=== PATIENT | female | born 1955 | race Two or more races ===

== ENCOUNTER 2024-01-29 21:53 | Inpatient (IN) | payer OTHER, MEDICAID ==
[~2024-01-29] VITALS: Ht 162.6 cm; Wt 69.8 kg
[~2024-01-29 21:53] MED LIST: ALEN70TA74 PO; AMLO1TAB22 PO; AMOX500C2 PO; ASPI81CH59 PO; ATOR40TA52 PO; BACL10TA PO; CHOL20003 PO; FAMO40TA7 PO; IBUP-1455 PO; LISI10TA34 PO; MET25T PO; METH4TAB44 PO; TRIA-49 PO
--- NOTE | 2024-01-29 22:17 | ED.PDOC ---
GI ASSESSMENT HPI Comments 68-year-old female who coming to ER via EMS due to abdominal pain. Patient does have history of breast cancer. States for the past few hours she has been having left lower quadrant abdominal pain, nonradiating, constant. The, vomiting or diarrhea. Denies any abdominal surgeries. Chief Complaint: Abdominal Pain Time Seen by MD: 22:17 Reviewed Notes: Nurses Notes Allergies: Coded Allergies: No Known Drug Allergy (Verified Allergy, Unknown, 01/29/24) Information Source: Patient Mode of Arrival: EMS Timing: Hours Duration: Since onset Prehospital treatment: None Quality: Aching, Sharp Vomitus: None Stool: Normal Severity: Moderate Recent: None Recent Hx of: None Pain Location: LLQ Modifying Factors: Nothing Associated sign and symptoms: Abdominal Pain Past Medical History PAST MEDICAL HISTORY: Cancer (Breast) Surgical History: Denies all surgeries BLASTING MINER History: Denies all BLASTING MINER Hx Family History Family History: Reviewed,noncontributory to illness Social History Smoker: Non-Smoker Alcohol: Denies ETOH Use Drugs: Denies Drug Use Lives In: Home Constitutional: denies: chills, diaphoresis, fatigue, fever, malaise, sweats, weakness, others EENTM: denies: blurred vision, double vision, ear bleeding, ear discharge, ear drainage, ear pain, ear ringing, eye pain, eye redness, hearing loss, mouth pain, mouth swelling, nasal discharge, nose bleeding, nose congestion, nose pain, photophobia, tearing, throat pain, throat swelling, voice changes, others Respiratory: denies: cough, hemoptysis, orthopnea, SOB at rest, shortness of breath, SOB with excertion, stridor, wheezing, others Cardiovascular: denies: chest pain, dizzy spells, diaphoresis, Dyspnea on exertion, edema, irregular heart beat, left arm pain, lightheadedness, palpitations, PND, syncope, others Gastrointestinal: reports: abdominal pain; denies: abdomen distended, blood streaked bowels, constipated, diarrhea, dysphagia, difficulty swallowing, hematemesis, melena, nausea, poor appetite, poor fluid intake, rectal bleeding, rectal pain, vomiting, others Genitourinary: denies: abnormal vagina bleeding, burning, dyspareunia, dysuria, flank pain, frequency, hematuria, incontinence, pain, , vagina discharge, urgency, others Neurological: denies: dizziness, fainting, headache, left sided numbness, left sided weakness, numbness, paresthesia, pre-existing deficit, right sided numbness, right sided weakness, seizure, speech problems, tingling, tremors, weakness, others Musculoskeletal: denies: back pain, gout, joint pain, joint swelling, muscle pain, muscle stiffness, neck pain, others Integumetry: denies: bruises, change in color, change in hair/nails, dryness, laceration, lesions, lumps, rash, wounds, others Allergic/Immunocompromised: denies: Difficulty Healing, Frequent Infections, Hives, Itching, others Hematologic/Lymphatic: denies: anemia, blood clots, easy bleeding, easy bruising, swollen glands, others Endocrine: denies: excessive hunger, excessive sweating, excessive thirst, excessive urination, flushing, intolerance to cold, intolerance to heat, unexplained weight gain, unexplained weight loss, others Psychiatric: denies: anxiety, bipolar disorder, depression, hopeless, panic disorder, schizophrenia, sleepless, suicidal, others Physical Exam General Appearance: No Apparent Distress, Normal HEENT: Normal ENT Inspection, Pharynx Normal, TMs Normal Neck: Full Range of Motion, Non-Tender, Normal, Normal Inspection Respiratory: Chest Non-Tender, Lungs Clear, No Accessory Muscle Use, No Respiratory Distress, Normal Breath Sounds Cardiovascular: No Edema, No JVD, No Murmur, No Gallop, Normal Peripheral Pulses, Regular Rate/Rhythm Breast Exam: Deferred Gastrointestinal: LLQ, No Organomegaly, No Pulsatile Mass, Normal Bowel Sounds, Soft, Tenderness Genitalia: Deferred Pelvic: Deferred Rectal: Deferred Extremities: No calf tenderness, Normal capillary refill, Normal inspection, Normal range of motion, Non-tender, No pedal edema Musculoskeletal : Apperance: Normal Neurologic: Alert, him specialist II-XII nml as Tested, No Motor Deficits, Normal Affect, Normal Mood, No Sensory Deficits Cerebellar Function: Normal Reflexes: Normal Skin: Dry, Normal Color, Warm Lymphatic: No Adenopathy Was a procedure done? Was a procedure done?: No GI differential Dx Differential Diagnosis: Constipation, Diverticular disease, Gastritis/PUD, Gastroenteritis, Ovarian cyst/torsion, UTI X-Ray, Labs, Meds, VS Vital Signs Date Time Temp Pulse Resp B/P (MAP) Pulse Ox O2 Delivery O2 Flow Rate FiO2 01/30/24 00:00 88 01/30/24 00:00 86 13 158/66 (96) 94 01/29/24 23:18 92 19 93/69 01/29/24 23:10 92 19 94 Room Air* 0 21 01/29/24 23:10 98.2 92 19 93/69 (77) 94 98.2 01/29/24 22:49 102 16 180/98 01/29/24 22:31 98.6 102 16 180/98 (125) 97 98.6 01/29/24 22:01 98.2 88 20 159/74 (102) 99 01/29/24 21:53 90 Lab Test 01/29/24 23:10 01/29/24 22:30 Range/Units Urine Color Straw Yellow Urine Clarity Clear Clear Urine pH 7.0 5.0-9.0 Urine Specific [place] 1.012 1.001-1.035 Urine Protein Negative Negative Urine Ketones Negative Negative Urine Blood Negative Negative /uL Urine Nitrite Negative Negative Urine Bilirubin Negative Negative Urine Urobilinogen Normal Negative mg/dL Urine Leukocyte Esterase Negative Negative /uL Urine RBC 2 0 - 4 /hpf Urine WBC <1 0 - 5 /hpf Urine Squamous Epithelial Cells None seen <5 /hpf Urine Bacteria None seen None Seen /hpf Urine Glucose Normal Normal mg/dL White Blood Count 12.0 H 4.4-10.8 10^3/uL Red Blood Count 4.74 4.0-5.20 10^6/uL Hemoglobin 14.0 12.2-16.2 g/dL Hematocrit 41.5 36.0-46.0 % Mean Corpuscular Volume 87.7 80.0-100.0 fL Mean Corpuscular Hemoglobin 29.5 28.0-32.0 pg Mean Corpuscular Hemoglobin Concent 33.6 32.0-36.0 g/dL Red Cell Distribution Width 14.1 11.8-14.3 % Platelet Count 302 140-450 10^3/uL Mean Platelet Volume 8.0 6.9-10.8 fL Neutrophils (%) (Auto) 83.3 H 37.0-80.0 % Lymphocytes (%) (Auto) 11.7 10.0-50.0 % Monocytes (%) (Auto) 3.3 0.0-12.0 % Eosinophils (%) (Auto) 1.3 0.0-7.0 % Basophils (%) (Auto) 0.4 0.0-2.0 % Neutrophils # (Auto) 9.9 H 1.6-8.6 10 ^3/uL Lymphocytes # (Auto) 1.4 0.4-5.4 10 ^3/uL Monocytes # (Auto) 0.4 0-1.3 10 ^3/uL Eosinophils # (Auto) 0.2 0-0.8 10 ^3/uL Basophils # (Auto) 0.1 0-0.2 10 ^3/uL Nucleated Red Blood Cells 0.0 % Sodium Level 137 136-145 mmol/L Potassium Level 3.8 3.5-5.1 mmol/L Chloride Level 101 98-107 mmol/L Carbon Dioxide Level 27 20-31 mmol/L Anion Gap 9 5-15 Blood Urea Nitrogen 15 9-23 mg/dL Creatinine 1.11 H 0.550-1.02 mg/dL Glomerular Filtration Rate Calc 54 >90 mL/min BUN/Creatinine Ratio 13.5 10.0-20.0 Serum Glucose 100 74-106 mg/dL Calcium Level 9.9 8.7-10.4 mg/dL Current Medications Medications (Trade) Dose Ordered Sig/Sepideh Route Start Time Stop Time Status Last Admin Sodium Chloride 1,000 ml @ 1,000 mls/hr Q1H ONCE IV 01/29/24 22:15 01/29/24 23:14 DC 01/29/24 22:41 Ondansetron HCl (Zofran) 4 mg ONCE ONCE IV 01/29/24 22:15 01/29/24 22:16 DC 01/29/24 22:47 Morphine Sulfate 4 mg ONCE ONCE IV 01/29/24 22:15 01/29/24 22:16 DC 01/29/24 22:49 Metronidazole 100 ml @ 100 mls/hr ONCE ONCE IV 01/30/24 00:15 01/30/24 01:14 01/30/24 00:27 Time of 1ST Reevaluation: 22:13 Reevaluation 1ST: Unchanged Patient Education/Counseling: Diagnosis, Treatment Family Education/Counseling: No Family Present Departure 1 Departure Time of Disposition: 00:49 (Patient with pneumoperitoneum. Discussed the case with general surgeon Dr. Negrete. Recommends NG tube fluids antibiotics admission and he will manage patient.) Impression: Primary Impression: Pneumoperitoneum Additional Impressions: Abdominal pain Qualified Codes: R10.84 - Generalized abdominal pain Diverticulitis of intestine with perforation Qualified Codes: K57.20 - Diverticulitis of large intestine with perforation and abscess without bleeding Disposition: ADMITTED INPATIENT Admit to: Med Surg Condition: Guarded Critical Care Note Critical Care Time?: Yes Critical care comment: Intractable abdominal pain Authorized and Performed by: Tri Hope MD Total critical care time: Approximately 48 minutes Due to a high probability of clinically significant, life threatening deterioration, the patient required my highest level of preparedness to intervene emergently and I personally spent this critical care time directly and personally managing the patient. This critical care time included obtaining a history; examining the patient; pulse oximetry; ordering and review of studies; arranging urgent treatment with development of a management plan; evaluation of patient's response to treatment; frequent reassessment; and, discussions with other providers. This critical care time was performed to assess and manage the high probability of imminent, life-threatening deterioration that could result in multi-organ failure. It was exclusive of separately billable procedures and treating other patients and teaching time. Please see my other sections and the rest of the note for further information on patient assessment and treatment. Stability Stability form required: No Heart Score Heart Score: Heart Score Response (Comments) Value History N/A 0 EKG N/A 0 Age N/A 0 Risk Factors N/A 0 Troponin N/A 0 Total 0 I personally scribed for TRI HOPE MD ([email or web address]) on 01/29/24 at 22:17. Electronically submitted by Luis Armenta ([email or web address]). TRI HOPE MD Jan 29, 2024 22:17
[2024-01-29] MEDS: SODIUM CHLORIDE 0.9% 1,000 ML IV ONE (22:41)
[2024-01-29 22:43] LABS: Basophils # (auto) 0.1 10 ^3/uL (0-0.2); Basophils % (auto) 0.4 % (0.0-2.0); Eosinophils # (auto) 0.2 10 ^3/uL (0-0.8); Eosinophils % (auto) 1.3 % (0.0-7.0); Hematocrit 41.5 % (36.0-46.0); Lymphocytes # (auto) 1.4 10 ^3/uL (0.4-5.4); Lymphocytes % (auto) 11.7 % (10.0-50.0); Mean Corpuscular Hemoglobin 29.5 pg (28.0-32.0); Mean Corpuscular Hgb Conc. 33.6 g/dL (32.0-36.0); Mean Corpuscular Volume 87.7 fL (80.0-100.0); Monocytes # (auto) 0.4 10 ^3/uL (0-1.3); Monocytes % (auto) 3.3 % (0.0-12.0); Neutrophils # (auto) 9.9 10 ^3/uL (1.6-8.6); Neutrophils % (auto) 83.3 % (37.0-80.0); Platelet Count (auto) 302 10^3/uL (140-450); Red Blood Cells 4.74 10^6/uL (4.0-5.20); Red Cell Distribution Width 14.1 % (11.8-14.3)
[2024-01-29] MEDS: ONDANSETRON HCL 4 MG/2 ML VIAL IV ONE (22:47)
[2024-01-29] MEDS: MORPHINE SULFATE 4 MG/ML SYR/VIAL IV ONE (22:49)
[2024-01-29 22:51] LABS: Chloride 101 mmol/L (98-107); Potassium 3.8 mmol/L (3.5-5.1); Sodium 137 mmol/L (136-145)
[2024-01-29 22:52] LABS: Anion Gap 9 (5-15); Calcium 9.9 mg/dL (8.7-10.4); Carbon Dioxide 27 mmol/L (20-31)
[2024-01-29 22:57] LABS: BUN/Creatinine Ratio 13.5 (10.0-20.0); Blood Urea Nitrogen 15 mg/dL (9-23); Glucose 100 mg/dL (74-106)
[2024-01-29 23:10] VITALS: PULSE 92; RESP 19; O2SAT 94
[2024-01-29 23:18] LABS: Urine Bacteria None Seen /hpf (None Seen)
[2024-01-29 23:23] LABS: Urine Blood Negative /uL (Negative); Urine Clarity Clear (Clear); Urine Protein, UAD Negative (Negative); Urine Specific Gravity 1.012 (1.001-1.035); Urine Urobilinogen Normal (Negative); Urine WBC <1 /hpf (0 - 5)
[2024-01-29 23:24] LABS: Urine Color STRAW (Yellow)
[2024-01-29] MEDS: IOHEXOL 300 MG/ML 100ML BOTTLE IJ ONE (23:34)
--- NOTE | 2024-01-29 23:59 | DVH ---
CT CT AB PEL WITH IV CON ONLY INDICATION: : 68 old Female llq abdominal pain EXAM DATE: 01/29/2024 11:22 PM COMPARISON: None RADIATION DOSE: CTDIvol: 7 mGy, DLP: 431 mGy*cm PROCEDURE: Helical CT images were obtained of the abdomen and pelvis with IV contrast Sagittal and c oronal reconstructions are provided. ORAL CONTRAST: None. ADDITIONAL IMAGES / REFORMATS: None All CT scans at this medical facility are performed using dose modulation techniques as appropriate t o a performed exam including the following: Automated exposure control was utilized; adjustment of th e MA and/or KV according to patient size; and use of iterative reconstruction technique. FINDINGS: LUNG BASE: Normal. LIVER: Subcentimeter cyst is too small to characterize. GALLBLADDER AND BILIARY TREE: No calcified gallstones. Normal caliber wall. No intra- or extrahepatic biliary ductal dilation. PANCREAS: Normal. SPLEEN: Normal. BOWEL: Colonic diverticulosis with prominent inflammatory fat stranding at the sigmoid colon. Normal appendix. Mildly distended loops of small bowel with increased mucosal enhancement. ADRENALS: Normal. KIDNEYS AND URETER: Normal. BLADDER: Normal. REPRODUCTIVE ORGANS: Absent. LYMPH NODES:No lymphadenopathy. PERITONEUM: Trace pelvic fluid. Prominent amount of pneumoperitoneum. VESSELS: Scattered atherosclerotic calcifications are noted. RETROPERITONEUM: Normal. ABDOMINAL WALL: Normal. BONES: Scattered osseous degenerative changes are noted. IMPRESSION: Colonic diverticulosis with prominent inflammatory fat stranding at the sigmoid colon with a prominen t amount of pneumoperitoneum could be perforated diverticulitis. Mildly distended loops of small bowel with increased mucosal enhancement could be ileus and a develop ing partial bowel obstruction also possible. Critical Result: Pneumoperitoneum (free air) Findings discussed with , dr. Hope at 01/29/2024 11:56 PM and acknowledged receipt and understandin g of the findings.
[2024-01-30] VITALS (9 sets, daily range): BP systolic 134–155; BP diastolic 66–71; PULSE 79–116; RESP 17–20; TEMP 97.9–99.3; O2SAT 98–100
[2024-01-30] MEDS: metroNIDAZOLE 500MG/100ML 100 ML IV ONE (00:27)
[2024-01-30] MEDS: ceFAZolin 2 GM/D5W50ml 50 ML IV ONE (01:33)
--- NOTE | 2024-01-30 01:35 | DVHINCON2 ---
Date of service: Jan 30, 2024 Allergies: Coded Allergies: Hydrocortisone (Verified Allergy, Intermediate, rash , 01/30/24) Vital Signs Vital Signs Date Time Temp Pulse Resp B/P (MAP) Pulse Ox O2 Delivery O2 Flow Rate FiO2 01/30/24 00:00 88 01/30/24 00:00 13 158/66 (96) 94 01/29/24 23:10 Room Air* 0 21 01/29/24 23:10 98.2 98.2 Labs/Diagnostic Data Labs Test 01/29/24 23:10 01/29/24 22:30 Range/Units Urine Color Straw Yellow Urine Clarity Clear Clear Urine pH 7.0 5.0-9.0 Urine Specific [place] 1.012 1.001-1.035 Urine Protein Negative Negative Urine Ketones Negative Negative Urine Blood Negative Negative /uL Urine Nitrite Negative Negative Urine Bilirubin Negative Negative Urine Urobilinogen Normal Negative mg/dL Urine Leukocyte Esterase Negative Negative /uL Urine RBC 2 0 - 4 /hpf Urine WBC <1 0 - 5 /hpf Urine Squamous Epithelial Cells None seen <5 /hpf Urine Bacteria None seen None Seen /hpf Urine Glucose Normal Normal mg/dL White Blood Count 12.0 H 4.4-10.8 10^3/uL Red Blood Count 4.74 4.0-5.20 10^6/uL Hemoglobin 14.0 12.2-16.2 g/dL Hematocrit 41.5 36.0-46.0 % Mean Corpuscular Volume 87.7 80.0-100.0 fL Mean Corpuscular Hemoglobin 29.5 28.0-32.0 pg Mean Corpuscular Hemoglobin Concent 33.6 32.0-36.0 g/dL Red Cell Distribution Width 14.1 11.8-14.3 % Platelet Count 302 140-450 10^3/uL Mean Platelet Volume 8.0 6.9-10.8 fL Neutrophils (%) (Auto) 83.3 H 37.0-80.0 % Lymphocytes (%) (Auto) 11.7 10.0-50.0 % Monocytes (%) (Auto) 3.3 0.0-12.0 % Eosinophils (%) (Auto) 1.3 0.0-7.0 % Basophils (%) (Auto) 0.4 0.0-2.0 % Neutrophils # (Auto) 9.9 H 1.6-8.6 10 ^3/uL Lymphocytes # (Auto) 1.4 0.4-5.4 10 ^3/uL Monocytes # (Auto) 0.4 0-1.3 10 ^3/uL Eosinophils # (Auto) 0.2 0-0.8 10 ^3/uL Basophils # (Auto) 0.1 0-0.2 10 ^3/uL Nucleated Red Blood Cells 0.0 % Sodium Level 137 136-145 mmol/L Potassium Level 3.8 3.5-5.1 mmol/L Chloride Level 101 98-107 mmol/L Carbon Dioxide Level 27 20-31 mmol/L Anion Gap 9 5-15 Blood Urea Nitrogen 15 9-23 mg/dL Creatinine 1.11 H 0.550-1.02 mg/dL Glomerular Filtration Rate Calc 54 >90 mL/min BUN/Creatinine Ratio 13.5 10.0-20.0 Serum Glucose 100 74-106 mg/dL Calcium Level 9.9 8.7-10.4 mg/dL Assessment 01/30/24 68 year old female with acute abdomen due to perforated diverticulitis and developing small bowel obstruction, laparotomy, colon resection and colostomy, risks and complications explained in detail Plan discussed with: Patient, Spouse, Daughter REYNA SNOW MD Jan 30, 2024 01:35
[2024-01-30] MEDS ORDERED: MIDAZOLAM HCL 2MG/2ML 2ml VIAL (1mg/ml) ONE (01:52)
[2024-01-30] MEDS ORDERED: fentaNYL CITRATE 100 MCG/2 ML VL ONE (01:52)
[2024-01-30] MEDS ORDERED: ROCURONIUM 10MG/ML 10ML VIAL IV ONE (01:54)
[2024-01-30] MEDS: SUCCINYLCHOLINE CHLORIDE 20 MG/ML 10ML VIAL IV ONE (01:54)
[2024-01-30] MEDS ORDERED: PROPOFOL 10 MG/ML 20 ML IV ONE (01:54)
--- NOTE | 2024-01-30 02:18 | ECG ---
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
[2024-01-30 02:45] LABS: INR 1.03 (0.9-1.15); Partial Thromboplastin Time 25.9 SEC (24.5-34.5); Prothrombin Time 10.9 sec (9.3-11.8)
[2024-01-30] MEDS ORDERED: ONDANSETRON HCL 4 MG/2 ML VIAL ONE (02:45)
[2024-01-30] MEDS ORDERED: DexAMETHasone SOD PHOS 10MG/1ML VIAL INJ ONE (02:45)
[2024-01-30] MEDS ORDERED: SUGAMMADEX 200mg/2ml Vial (100MG/ML) IV ONE (02:45)
[2024-01-30] MEDS ORDERED: metroNIDAZOLE 500MG/100ML 100 ML IV ONE (03:00)
[2024-01-30] MEDS ORDERED: cefTRIAXone 1GM/50ML D5W 50 ML IV ONE (03:00)
[2024-01-30] MEDS: HYDROmorphone HCL 2 MG/ML VL/or syr IV PRN (03:25)
--- NOTE | 2024-01-30 03:37 | DVHOP ---
DATE OF SURGERY: 01/29/2024 PREOPERATIVE DIAGNOSES: Pneumoperitoneum, perforated diverticulitis. POSTOPERATIVE DIAGNOSES: Peritonitis, pneumoperitoneum, microperforated diverticulitis. SURGEON: Jose Enrique Negrete MD ANESTHESIA: General endotracheal. ANESTHESIOLOGIST: Dr. Ronny Rios. PROCEDURES: Exploratory laparotomy, peritoneal lavage, insertion of Mikal-May drain. DESCRIPTION OF PROCEDURE: Under general anesthesia with the patient's skin prepped and draped, a midline incision was made below the umbilicus and small amount of non-feculent turbid fluid was evacuated. Samples were sent for cultures and sensitivities. Manual and visual inspection of the abdominal cavity revealed peritonitis with petechial hemorrhages throughout the serosal surfaces of the small bowel. There was no evidence of bowel obstruction. There was, however, evidence of diverticulitis affecting the mid sigmoid colon. Extensive search for a perforation was undertaken. A microperforated diverticulitis was encountered with no evidence of extravasation of fecal material from the colon. For this reason, the abdominal cavity and pelvis were profusely irrigated with 5 liters of warm saline containing antibiotic. The diverticular disease was repeatedly inspected. There was no evidence of leakage. For this reason, a Mikal-May drain was inserted into the pelvis and exteriorized through separate incision and secured with a 2-0 nylon suture. The peritoneum was closed using 2-0 Monocryl, muscle approximated using #1 double-stranded PDS suture and skin approximated with metallic skin arturo. The patient remained stable throughout the procedure, left the operating room following an accurate needle and sponge count. The family was thoroughly informed. I explained to the family that the microperforation did not necessitate a colon resection. However, if diverticular disease persists. the patient will be treated with antibiotics, will most likely remain in the hospital for over a week on TPN and eventually will either have to have another operation to remove the diverticula or to change her diet and attempt to avoid further complications of the diverticulosis. Jose Enrique Negrete MD PF TID: [id number] RECEIPT: [id number]
[2024-01-30] MEDS ORDERED: NITROGLYCERIN 0.4 MG SL TAB SL PRN (03:45)
[2024-01-30] MEDS ORDERED: MORPHINE SULFATE INJ 2 MG/ml SYRG IV PRN (03:45)
--- NOTE | 2024-01-30 03:49 | DVHHP2 ---
History of Present Illness Reason for Visit: Diverticulitis of large intestine with perforation and abscess without History of Present Illness Patient is a 68-year-old female with past medical history of breast cancer who presented to [facility] ED with complaint of acute abdominal pain. Patient reports symptoms progressively get worse with left lower quadrant abdominal pain, nonradiating, constant, rating 9/10 numeric scale, getting worse that prompted this visit. Patient was seen and evaluated in the ED, laboratory data shows elevated WBC 12.0, platelets 302, sodium 137, potassium 3.8, BUN 15, creatinine 1.11, glucose 100, blood pressure 158/66, heart rate 86, temperature 98.2 F, O2 saturation 94% on oxygen. Abdomen/pelvis CT revealing colonic diverticulosis with prominent inflammatory fat stranding at the sigmoid colon with prominent amount of pneumoperitoneum could be perforated diverticulitis; mildly distended loops of small bowel with increased mucosal enhancement could be ileus and a developing partial bowel obstruction also possible. Surgical team were consulted, please see medication orders section in the computer. On my assessment, patient denied chest pain, no headache, no dizziness, no shortness of breath, no abdominal pain at this moment, no nausea, no vomiting, no fever, no chills. Patient was admitted for further evaluation and medical management. Past Medical History Cancer (Breast) Past Surgical History Denies all surgeries Family History Reviewed, noncontributory to the management of this case. Past Social History The patient lives at home, denies smoking, alcohol or illicit drugs abuse. Review of Systems Constitutional: No: Fever, Chills, Sweats, Weakness, Malaise, Other Eyes: No: Pain, Vision change, Conjunctivae inflammation, Eyelid inflammation, Other, Redness ENT: No: Ear pain, Ear discharge, Nose pain, Nose discharge, Nose congestion, Mouth pain, Mouth swelling, Throat pain, Throat swelling, Other Respiratory: No: Cough, Dry, Shortness of breath, SOB with excertion, Wheezing, Hemoptysis, Pleuritic Pain, Sputum, Wheezing, Other Cardiovascular: No: Chest Pain, Palpitations, Orthopnea, Paroxysmal Noc. Dyspnea, Edema, Lt Headedness, Other Gastrointestinal: Abdominal Pain; No: Nausea, Vomiting, Diarrhea, Constipation, Melena, Hematochezia, Other Genitourinary: No Dysuria, No Frequency, No Incontinence, No Hematuria, No Retention, No Other Musculoskeletal: No: other, neck pain, shoulder pain, arm pain, back pain, hand pain, leg pain, foot pain Skin: No: Rash, Lesions, Jaundice, Bruising, Other Neurological: No: Weakness, Numbness, Incoordination, Change in speech, Confusion, Seizures, Other Allergies: Coded Allergies: Hydrocortisone (Verified Allergy, Intermediate, rash , 01/30/24) Medications Current Medications Medications Dose Ordered Sig/Sepideh Route Start Time Stop Time Status Last Admin Dose Admin Ceftriaxone Sodium 50 ml @ 100 mls/hr DAILY@09 IV 01/30/24 09:00 Metronidazole 100 ml @ 100 mls/hr Q8H IV 01/30/24 08:00 Pantoprazole Sodium 40 mg DAILY IV 01/30/24 10:00 Ondansetron HCl 4 mg Q4HP PRN IV 01/30/24 02:15 Acetaminophen 650 mg Q6HP PRN PO 01/30/24 02:15 Morphine Sulfate 2 mg Q4HPRN PRN IV 01/30/24 02:15 Hydralazine HCl 10 mg Q6HP PRN IV 01/30/24 02:15 Hydromorphone HCl 0.5 mg Q10M PRN IV 01/30/24 03:30 01/30/24 04:11 Exam Vital Signs Vital Signs Date Time Temp Pulse Resp B/P (MAP) Pulse Ox O2 Delivery O2 Flow Rate FiO2 01/30/24 03:23 109 22 173/65 (101) 97 01/30/24 03:08 Room Air 0 01/30/24 03:08 98.6 98.6 01/30/24 03:08 100 General Appearance: Alert, Oriented X3, Cooperative, No acute distress HEENT: Atraumatic, PERRLA, EOMI, Mucous membr. moist/pink Respiratory: Clear to auscultation, Normal air movement Cardiovascular: Regular rate, Normal S1, Normal S2, No murmurs Abdominal: Normal bowel sounds, Soft, No hepatospenomegaly, No masses, Other (Reports tenderness) Extremities: No clubbing, No cyanosis, No edema, Normal pulses, No tenderness/swelling Skin: No rashes, No breakdown, No significant lesion Neuro: Normal gait, Normal speech, Strength at 5/5 X4 ext, Normal tone, Sensation intact, Cranial nerves 3-12 NL, Reflexes 2+ Psych/Mental Status: Mental status NL, Mood NL Labs/Xrays Labs Test 01/30/24 01:45 01/29/24 23:10 01/29/24 22:30 Range/Units Prothrombin Time 10.9 9.3-11.8 sec Prothrombin Time INR 1.03 0.9-1.15 Activated Partial Thromboplast Time 25.9 24.5-34.5 SEC Urine Color Straw Yellow Urine Clarity Clear Clear Urine pH 7.0 5.0-9.0 Urine Specific [place] 1.012 1.001-1.035 Urine Protein Negative Negative Urine Ketones Negative Negative Urine Blood Negative Negative /uL Urine Nitrite Negative Negative Urine Bilirubin Negative Negative Urine Urobilinogen Normal Negative mg/dL Urine Leukocyte Esterase Negative Negative /uL Urine RBC 2 0 - 4 /hpf Urine WBC <1 0 - 5 /hpf Urine Squamous Epithelial Cells None seen <5 /hpf Urine Bacteria None seen None Seen /hpf Urine Glucose Normal Normal mg/dL White Blood Count 12.0 H 4.4-10.8 10^3/uL Red Blood Count 4.74 4.0-5.20 10^6/uL Hemoglobin 14.0 12.2-16.2 g/dL Hematocrit 41.5 36.0-46.0 % Mean Corpuscular Volume 87.7 80.0-100.0 fL Mean Corpuscular Hemoglobin 29.5 28.0-32.0 pg Mean Corpuscular Hemoglobin Concent 33.6 32.0-36.0 g/dL Red Cell Distribution Width 14.1 11.8-14.3 % Platelet Count 302 140-450 10^3/uL Mean Platelet Volume 8.0 6.9-10.8 fL Neutrophils (%) (Auto) 83.3 H 37.0-80.0 % Lymphocytes (%) (Auto) 11.7 10.0-50.0 % Monocytes (%) (Auto) 3.3 0.0-12.0 % Eosinophils (%) (Auto) 1.3 0.0-7.0 % Basophils (%) (Auto) 0.4 0.0-2.0 % Neutrophils # (Auto) 9.9 H 1.6-8.6 10 ^3/uL Lymphocytes # (Auto) 1.4 0.4-5.4 10 ^3/uL Monocytes # (Auto) 0.4 0-1.3 10 ^3/uL Eosinophils # (Auto) 0.2 0-0.8 10 ^3/uL Basophils # (Auto) 0.1 0-0.2 10 ^3/uL Nucleated Red Blood Cells 0.0 % Sodium Level 137 136-145 mmol/L Potassium Level 3.8 3.5-5.1 mmol/L Chloride Level 101 98-107 mmol/L Carbon Dioxide Level 27 20-31 mmol/L Anion Gap 9 5-15 Blood Urea Nitrogen 15 9-23 mg/dL Creatinine 1.11 H 0.550-1.02 mg/dL Glomerular Filtration Rate Calc 54 >90 mL/min BUN/Creatinine Ratio 13.5 10.0-20.0 Serum Glucose 100 74-106 mg/dL Calcium Level 9.9 8.7-10.4 mg/dL PATIENT: FELICIA ASENCIO ACCT: [id number] UNIT: [id number] : 1955 LOC: ER ROOM / BED: / AGE / SEX: 68 / F ADM STATUS: REG ER SERVICE 02 ORDERING PHYSICIAN: TRI HENDRIX MD PROCEDURE(s): ABPLIV - CT AB PEL WITH IV CON ONLY REASON: llq abdominal pain ORDER NUMBER(s): [id number], ACCESSION NUMBER(s): [id number] CT CT AB PEL WITH IV CON ONLY INDICATION: : 68 old Female llq abdominal pain EXAM DATE: 01/29/2024 11:22 PM COMPARISON: None RADIATION DOSE: CTDIvol: 7 mGy, DLP: 431 mGy*cm PROCEDURE: Helical CT images were obtained of the abdomen and pelvis with IV contrast Sagittal and coronal reconstructions are provided. ORAL CONTRAST: None. ADDITIONAL IMAGES / REFORMATS: None All CT scans at this medical facility are performed using dose modulation techniques as appropriate to a performed exam including the following: Automated exposure control was utilized; adjustment of the MA and/or KV according to patient size; and use of iterative reconstruction technique. FINDINGS: LUNG BASE: Normal. LIVER: Subcentimeter cyst is too small to characterize. GALLBLADDER AND BILIARY TREE: No calcified gallstones. Normal caliber wall. No intra- or extrahepatic biliary ductal dilation. PANCREAS: Normal. SPLEEN: Normal. BOWEL: Colonic diverticulosis with prominent inflammatory fat stranding at the sigmoid colon. Normal appendix. Mildly distended loops of small bowel with increased mucosal enhancement. ADRENALS: Normal. KIDNEYS AND URETER: Normal. BLADDER: Normal. REPRODUCTIVE ORGANS: Absent. LYMPH NODES:No lymphadenopathy. PERITONEUM: Trace pelvic fluid. Prominent amount of pneumoperitoneum. VESSELS: Scattered atherosclerotic calcifications are noted. RETROPERITONEUM: Normal. ABDOMINAL WALL: Normal. BONES: Scattered osseous degenerative changes are noted. IMPRESSION: Colonic diverticulosis with prominent inflammatory fat stranding at the sigmoid colon with a prominent amount of pneumoperitoneum could be perforated diverticulitis. Mildly distended loops of small bowel with increased mucosal enhancement could be ileus and a developing partial bowel obstruction also possible. Critical Result: Pneumoperitoneum (free air) Assessment/Plan Assessment/Plan Pneumoperitoneum Leukocytosis, unspecified Acute abdominal pain Generalized abdominal pain Diverticulitis of intestine with perforation Diverticulitis of large intestine with perforation and abscess without bleeding Plan 1. Admit to telemetry unit 2. Breathing treatment 3. Pain control management 4. IV antibiotic management 5. Management of fluids and electrolytes 6. Consultation for surgical team 7. Diagnostic test abdomen/pelvis CT 8. DVT prophylaxis on SCDs 9. Repeat labs CBC, CMP in a.m. 10. Home medication reviewed and reconciled 11. Continue with current medical management 12. Treatment plan discussed with patient and RN. Patient verbalized understanding. Plan discussed with: Patient, Other (RN) My Orders Orders - ADRIENNE IZQUIERDO DNP Procedure Category Date Status Time Complete Blood Count LAB 01/30/24 Logged 04:00 Comprehensive LAB 01/30/24 Logged Metabolic Panel 04:00 Ceftriaxone 1gm/50ml PHA 01/30/24 In Process D5w (Rocephin) 09:00 Metronidazole PHA 01/30/24 In Process 500mg/100ml (Flagyl 08:00 Pantoprazole PHA 01/30/24 In Process (Protonix) 10:00 Allergies RASHMI 01/30/24 In Process 02:07 Code Status CODE 01/30/24 Transmitted 02:07 Oxygen Per Hour RT 01/30/24 Transmitted 02:07 Ondansetron Hcl PHA 01/30/24 In Process (Zofran) 02:15 Complete Blood Count LAB 01/31/24 Verified 04:00 Comprehensive LAB 01/31/24 Verified Metabolic Panel 04:00 Npo (Nothing By DIET 01/30/24 Transmitted Mouth) Diet Breakfast Condition: Serious RASHMI 01/30/24 In Process 02:07 Acetaminophen Tablet [facility] 01/30/24 In Process (Tylenol Tablet) 02:15 Bedrest With Bathroom [facility] 01/30/24 In Process Privileg 02:07 Morphine Sulfate [facility] 01/30/24 In Process Injection 02:15 Sequential [facility] 01/30/24 In Process Compression Device Hydralazine Injection [facility] 01/30/24 In Process (Apresoline Inject 02:15 Admit ADMIT 01/30/24 Verified 03:33 Nitroglycerin [facility] 01/30/24 Verified Sublingual (Ntrostat 03:45 Morphine Sulfate [facility] 01/30/24 Verified Injection 03:45 Notify Md Of Changes [facility] 01/30/24 Verified From Base 03:33 Client Relationship Consultant For [facility] 01/30/24 Verified 24 Hours 03:33 Emergency Dysrhythmia [facility] 01/30/24 Verified Protocol 03:33 Rhythm Strips Once [facility] 01/30/24 Verified Every Shift 03:33 Oxygen By Nasal RT 01/30/24 Verified Cannula 03:33 Problem List: (1) Acute abdominal pain (2) Pneumoperitoneum (3) Diverticulitis of intestine with perforation (4) Generalized abdominal pain (5) Leukocytosis, unspecified (6) Diverticulitis of large intestine with perforation and abscess without bleeding Date of Service: Jan 30, 2024 Billing Provider: ADRIENNE IZQUIERDO DNP Common Visit Codes: [id number] INP/OBS CARE (HIGH) ADRIENNE IZQUIERDO DNP Jan 30, 2024 03:49
[2024-01-30] MEDS: MORPHINE SULFATE INJ 2 MG/ml SYRG IV PRN (04:11)
[2024-01-30] MEDS: cefTRIAXone 1GM/50ML D5W 50 ML IV SCH (09:09)
[2024-01-30] MEDS: PANTOPRAZOLE 40 MG/10 ML VIAL INJ IV SCH (09:10)
[2024-01-30] MEDS: metroNIDAZOLE 500MG/100ML 100 ML IV SCH (09:10)
[2024-01-30 10:11] LABS: Basophils # (auto) 0 10 ^3/uL (0-0.2); Basophils % (auto) 0.1 % (0.0-2.0); Eosinophils # (auto) 0 10 ^3/uL (0-0.8); Hematocrit 38.3 % (36.0-46.0); Hemoglobin 12.7 g/dL (12.2-16.2); Lymphocytes # (auto) 0.4 10 ^3/uL (0.4-5.4); Lymphocytes % (auto) 3.3 % (10.0-50.0); Mean Corpuscular Hgb Conc. 33.1 g/dL (32.0-36.0); Mean Corpuscular Volume 87.5 fL (80.0-100.0); Monocytes # (auto) 0.2 10 ^3/uL (0-1.3); Monocytes % (auto) 1.7 % (0.0-12.0); Neutrophils # (auto) 12.9 10 ^3/uL (1.6-8.6); Neutrophils % (auto) 94.9 % (37.0-80.0); Platelet Count (auto) 275 10^3/uL (140-450); Red Blood Cells 4.38 10^6/uL (4.0-5.20); Red Cell Distribution Width 14.4 % (11.8-14.3); White Blood Cell 13.6 10^3/uL (4.4-10.8)
[2024-01-30 10:28] LABS: Alanine Aminotransferase 19 U/L (7-40); Albumin 3.8 g/dL (3.2-4.8); Alkaline Phosphatase 76 U/L (46-116); Anion Gap 4 (5-15); Aspartate Aminotransferase 20 U/L (13-40); Blood Urea Nitrogen 14 mg/dL (9-23); Calcium 8.9 mg/dL (8.7-10.4); Carbon Dioxide 28 mmol/L (20-31); Chloride 107 mmol/L (98-107); Glucose 164 mg/dL (74-106); Potassium 4.2 mmol/L (3.5-5.1); Sodium 139 mmol/L (136-145)
[2024-01-30 10:29] LABS: Bilirubin, Total 0.8 mg/dL (0.2-1.0); Total Protein 6.5 g/dL (5.7-8.2)
[2024-01-30] MEDS ORDERED: DEXTROSE (50%) 50ML SYRG IV SCH (11:45)
[2024-01-30] MEDS ORDERED: TPN PER PHARMACY 0 ML IV SCH (11:45)
[2024-01-30] MEDS: InsuLIN REG 1unit/0.01ml Soln (100units/ml) SC SCH (12:00)
[2024-01-30 12:49] LABS: Magnesium 1.7 mg/dL (1.6-2.6)
[2024-01-30] MEDS: ACCU-CHEK COMFORT CURVE STRIP VI SCH (12:49)
[2024-01-30 12:51] LABS: Phosphorus 3.2 mg/dL (2.4-5.1)
[2024-01-30] MEDS: LIDOCAINE 1% (LOCAL ANESTH.) PF 5ml SDV ID ONE (17:45)
[2024-01-30] MEDS: AMINO ACID INFUSION IN D10W 1,000 ML IV SCH (21:36)
[2024-01-30] MEDS: SODIUM CHLOR 0.9% PF (SALINE LOCK) 10ML VIAL/SYR IV SCH (21:37)
[2024-01-30] MEDS ORDERED: TPN PER PHARMACY IV NR (22:00)
[2024-01-31 05:00] VITALS: BP 149/75; PULSE 89; RESP 18; TEMP 97.2; O2SAT 97
[2024-01-31 05:26] LABS: Basophils # (auto) 0 10 ^3/uL (0-0.2); Basophils % (auto) 0.1 % (0.0-2.0); Eosinophils # (auto) 0 10 ^3/uL (0-0.8); Eosinophils % (auto) 0.1 % (0.0-7.0); Hematocrit 37.7 % (36.0-46.0); Hemoglobin 12.7 g/dL (12.2-16.2); Lymphocytes # (auto) 1.2 10 ^3/uL (0.4-5.4); Lymphocytes % (auto) 11.3 % (10.0-50.0); Monocytes # (auto) 0.6 10 ^3/uL (0-1.3); Neutrophils # (auto) 8.6 10 ^3/uL (1.6-8.6); Neutrophils % (auto) 82.5 % (37.0-80.0); Red Blood Cells 4.25 10^6/uL (4.0-5.20); White Blood Cell 10.5 10^3/uL (4.4-10.8)
[2024-01-31 05:27] LABS: Mean Corpuscular Hemoglobin 29.8 pg (28.0-32.0); Mean Corpuscular Hgb Conc. 33.5 g/dL (32.0-36.0); Mean Corpuscular Volume 88.7 fL (80.0-100.0); Platelet Count (auto) 253 10^3/uL (140-450); Red Cell Distribution Width 14.5 % (11.8-14.3)
[2024-01-31 05:30] LABS: Alanine Aminotransferase 15 U/L (7-40); Albumin 3.6 g/dL (3.2-4.8); Alkaline Phosphatase 69 U/L (46-116); Anion Gap 6 (5-15); Aspartate Aminotransferase 17 U/L (13-40); BUN/Creatinine Ratio 12.9 (10.0-20.0); Blood Urea Nitrogen 12 mg/dL (9-23); Calcium 8.9 mg/dL (8.7-10.4); Carbon Dioxide 26 mmol/L (20-31); Chloride 107 mmol/L (98-107); Glucose 125 mg/dL (74-106); Magnesium 1.9 mg/dL (1.6-2.6); Potassium 3.6 mmol/L (3.5-5.1); Sodium 139 mmol/L (136-145); Triglycerides 82 mg/dL (< 150)
[2024-01-31 05:31] LABS: Bilirubin, Total 0.8 mg/dL (0.2-1.0); Phosphorus 2.4 mg/dL (2.4-5.1); Total Protein 6.3 g/dL (5.7-8.2)
[2024-01-31] MEDS: D5W/SOD CHL 0.45%/KCL 20MEQ 1,000 ML IV ONE (08:00)
[2024-01-31] MEDS: HYDROmorphone HCL 2 MG/ML VL/or syr ONE (08:00)
[2024-01-31] MEDS: HYDROMORPHONE HCL 1 MG/ML INJ IV ONE (08:00)
[2024-01-31] MEDS: ONDANSETRON HCL 4 MG/2 ML VIAL IV ONE (08:01)
[2024-01-31 08:15] VITALS: PULSE 87
[2024-01-31 08:58] VITALS: BP 164/78; PULSE 85; RESP 21; TEMP 98.4; O2SAT 97
--- NOTE | 2024-01-31 11:19 | DVHPN2 ---
Subjective The patient is seen and examined at bedside. The patient complained of severe abdominal pain. Reviewed: Care Plan, H&P, Labs, Medications, Previous Orders, Radiology Changes from previous H/P or p: No Changes Eyes: No Pain, No Vision change, No Conjunctivae inflammation, No Eyelid inflammation, No Other, No Redness ENT: No Ear pain, No Ear discharge, No Nose pain, No Nose discharge, No Nose congestion, No Mouth pain, No Mouth swelling, No Throat pain, No Throat swelling, No Other Cardiovascular: No Chest Pain, No Palpitations, No Orthopnea, No Paroxysmal Noc. Dyspnea, No Edema, No Lt Headedness, No Other Respiratory: No Cough, No Dry, No Shortness of breath, No SOB with excertion, No Wheezing, No Hemoptysis, No Pleuritic Pain, No Sputum, No Other Gastrointestinal: No Nausea, No Vomiting; Abdominal Pain; No Diarrhea, No Constipation, No Melena, No Hematochezia, No Other Genitourinary: No Dysuria, No Frequency, No Incontinence, No Hematuria, No Retention, No Other Musculoskeletal: No other, No neck pain, No shoulder pain, No arm pain, No back pain, No hand pain, No leg pain, No foot pain Skin: No Rash, No Lesions, No Jaundice, No Bruising, No Other Objective Vitals Vital Signs Date Time Temp Pulse Resp B/P (MAP) Pulse Ox O2 Delivery O2 Flow Rate FiO2 01/31/24 08:58 98.4 85 21 164/78 (106) 97 98.4 01/30/24 20:00 Room Air* 0 21 Intake/Output Intake and Output 01/31/24 07:00 Intake Total 350 ml Output Total 1350 ml Balance -1000 ml Intake Oral 0 ml IV Total 350 ml Output Urine Total 1350 ml General Appearance: Alert, Cooperative, mild distress HEENT: Atraumatic, PERRLA, EOMI Neck: Supple Cardiovascular: Regular rate, Normal S1, Normal S2, No murmurs, Gallops, Rubs Abdomen: Normal bowel sounds, Soft, No tenderness, No hepatospenomegaly Psych/Mental Status: Mental status NL Medications Current Medications Medications Dose Ordered Sig/Sepideh Route Start Time Stop Time Status Last Admin Dose Admin Ceftriaxone Sodium 50 ml @ 100 mls/hr DAILY@09 IV 01/30/24 09:00 01/31/24 10:22 100 MLS/HR Metronidazole 100 ml @ 100 mls/hr Q8H IV 01/30/24 08:00 01/31/24 09:07 100 MLS/HR Pantoprazole Sodium 40 mg DAILY IV 01/30/24 10:00 01/31/24 10:22 40 MG Ondansetron HCl 4 mg Q4HP PRN IV 01/30/24 02:15 Acetaminophen 650 mg Q6HP PRN PO 01/30/24 02:15 Morphine Sulfate 2 mg Q4HPRN PRN IV 01/30/24 02:15 01/31/24 05:35 2 MG Hydralazine HCl 10 mg Q6HP PRN IV 01/30/24 02:15 Nitroglycerin 0.4 mg Q5MINP PRN SL 01/30/24 03:45 Morphine Sulfate 2 mg Q30M PRN IV 01/30/24 03:45 Diagnostic Test (Pha) 1 strip Q6HR 01/30/24 12:00 01/31/24 05:36 1 STRIP Insulin Human Regular FOLLOW SLIDING SCALE Q6HR SC 01/30/24 12:00 Dextrose 50 ml UD IV 01/30/24 11:45 Amino Acids 0 ml @ 0 mls/hr PER PHARMACY IV 01/30/24 11:45 Fat Emulsion Intravenous 50 ml/ Sodium Acetate 20 meq/Sodium Phosphate 20 meq/ Potassium Acetate 20 meq/Potassium Phosphate 22 meq/ Magnesium Sulfate 8 meq/ Multivitamins 10 ml/Chromium/ Copper/Manganese/ Zinc 1 ml/Amino Acids/Dextrose 893 ml @ 37 mls/hr Q24H9M IV 01/30/24 22:00 01/31/24 21:59 Cancel Amino Acids/ Electrolytes/ Dextrose 1,000 ml @ 41 mls/hr DAILY@2200 IV 01/30/24 22:00 01/30/24 21:36 41 MLS/HR Sodium Chloride 10 ml QSHIFT@10,22 IV 01/30/24 22:00 01/31/24 10:22 10 ML Fat Emulsion Intravenous 50 ml/ Sodium Phosphate 10 meq/Potassium Chloride 10 meq/ Magnesium Sulfate 8 meq/ Multivitamins 10 ml/Chromium/ Copper/Manganese/ Zinc 1 ml/Amino Acids/Dextrose 870.5 ml @ 36 mls/hr [id number] IV 01/31/24 22:00 02/01/24 21:59 Laboratory Results Laboratory Tests 01/31/24 04:48 Chemistry Test 01/31/24 04:48 Albumin 3.6 g/dL (3.2-4.8) Calcium Level 8.9 mg/dL (8.7-10.4) Magnesium Level 1.9 mg/dL (1.6-2.6) Phosphorus Level 2.4 mg/dL (2.4-5.1) Total Protein 6.3 g/dL (5.7-8.2) Lipid panel Test 01/31/24 04:48 Triglycerides Level 82 mg/dL (< 150) LFT Test 01/31/24 04:48 Alanine Aminotransferase (ALT) 15 U/L (7-40) Alkaline Phosphatase 69 U/L (46-116) Aspartate Amino Transferase (AST) 17 U/L (13-40) Total Bilirubin 0.8 mg/dL (0.2-1.0) Urinalysis Test 01/29/24 23:10 Urine Color Straw (Yellow) Urine Clarity Clear (Clear) Urine pH 7.0 (5.0-9.0) Urine Specific [place] 1.012 (1.001-1.035) Urine Protein Negative (Negative) Urine Ketones Negative (Negative) Urine Blood Negative /uL (Negative) Urine Nitrite Negative (Negative) Urine Bilirubin Negative (Negative) Urine Urobilinogen Normal mg/dL (Negative) Urine Leukocyte Esterase Negative /uL (Negative) Urine RBC 2 /hpf (0 - 4) Urine WBC <1 /hpf (0 - 5) Urine Squamous Epithelial Cells None seen /hpf (<5) Urine Bacteria None seen /hpf (None Seen) Urine Glucose Normal mg/dL (Normal) Labs and/or images reviewed: Labs reviewed by me Assessment/Plan Assessment/Plan Pneumoperitoneum Leukocytosis, unspecified Acute abdominal pain Generalized abdominal pain Diverticulitis of intestine with perforation status post surgery Diverticulitis of large intestine with perforation and abscess without bleeding Plan: Continuing current management. Continuing with IV antibiotic ceftriaxone in Flagyl. Continuing with Clinimix. Continuing with IV morphine for pain control. Plan discussed with: Patient Date of Service: Jan 31, 2024 Billing Provider: TED DEUTSCH MD Common Visit Codes: [id number] INP/OBS CARE(HIGH) TED DEUTSCH MD Jan 31, 2024 11:19
[2024-01-31] MEDS: hydrALAZINE HCL 20 MG/ML VL IV PRN (12:50)
[2024-01-31 13:00] VITALS: BP 179/74; PULSE 86; RESP 20; TEMP 98.2; O2SAT 98
[2024-01-31] MEDS: POTASSIUM PHOSPHATE 22 MEQ in SODIUM CHL 0.9% 100 ML IV ONE (13:18)
--- NOTE | 2024-01-31 14:13 | DVHPN2 ---
Progress Note Date Seen: Jan 31, 2024 Medical Necessity Reason Pt with a Central, PICC or Fol: No Objective vital signs Vital Sign Date Time Temp Pulse Resp B/P (MAP) Pulse Ox O2 Delivery O2 Flow Rate FiO2 01/31/24 13:00 98.2 86 20 179/74 (109) 98 98.2 01/31/24 08:15 Room Air* 0 21 Total Intake and Output 01/30/24 01/30/24 01/31/24 15:00 23:00 07:00 Intake Total 150 ml 100 ml 100 ml Output Total 300 ml 1050 ml Balance 150 ml -200 ml -950 ml medications Current Medications Medications Dose Ordered Sig/Sepideh Route Start Time Stop Time Status Last Admin Dose Admin Ceftriaxone Sodium 50 ml @ 100 mls/hr DAILY@09 IV 01/30/24 09:00 01/31/24 10:22 100 MLS/HR Metronidazole 100 ml @ 100 mls/hr Q8H IV 01/30/24 08:00 01/31/24 09:07 100 MLS/HR Pantoprazole Sodium 40 mg DAILY IV 01/30/24 10:00 01/31/24 10:22 40 MG Ondansetron HCl 4 mg Q4HP PRN IV 01/30/24 02:15 Acetaminophen 650 mg Q6HP PRN PO 01/30/24 02:15 Morphine Sulfate 2 mg Q4HPRN PRN IV 01/30/24 02:15 01/31/24 05:35 2 MG Hydralazine HCl 10 mg Q6HP PRN IV 01/30/24 02:15 01/31/24 12:50 10 MG Nitroglycerin 0.4 mg Q5MINP PRN SL 01/30/24 03:45 Morphine Sulfate 2 mg Q30M PRN IV 01/30/24 03:45 Diagnostic Test (Pha) 1 strip Q6HR 01/30/24 12:00 01/31/24 13:01 1 STRIP Insulin Human Regular FOLLOW SLIDING SCALE Q6HR SC 01/30/24 12:00 Dextrose 50 ml UD IV 01/30/24 11:45 Amino Acids 0 ml @ 0 mls/hr PER PHARMACY IV 01/30/24 11:45 Fat Emulsion Intravenous 50 ml/ Sodium Acetate 20 meq/Sodium Phosphate 20 meq/ Potassium Acetate 20 meq/Potassium Phosphate 22 meq/ Magnesium Sulfate 8 meq/ Multivitamins 10 ml/Chromium/ Copper/Manganese/ Zinc 1 ml/Amino Acids/Dextrose 893 ml @ 37 mls/hr Q24H9M IV 01/30/24 22:00 01/31/24 21:59 Cancel Amino Acids/ Electrolytes/ Dextrose 1,000 ml @ 41 mls/hr DAILY@2200 IV 01/30/24 22:00 01/30/24 21:36 41 MLS/HR Sodium Chloride 10 ml QSHIFT@ IV 01/30/24 22:00 01/31/24 10:22 10 ML Fat Emulsion Intravenous 50 ml/ Sodium Phosphate 10 meq/Potassium Chloride 10 meq/ Magnesium Sulfate 8 meq/ Multivitamins 10 ml/Chromium/ Copper/Manganese/ Zinc 1 ml/Amino Acids/Dextrose 870.5 ml @ 36 mls/hr [id number] IV 01/31/24 22:00 02/01/24 21:59 laboratory and microbiology Laboratory Tests 01/31/24 04:48 Test 01/31/24 04:48 Range/Units Serum Glucose 125 H 74-106 mg/dL Problem List/Assessment/Plan Problem List/Assessment/Plan 01/31/24 C/O PAIN, WOUND CLEAN AND WELL APPROXIMATED, DRAINAGE SEROUS, NO BM NO FLATUS, MUST AMBULATE Plan discussed with: Patient REYNA SNOW MD Jan 31, 2024 14:13
--- NOTE | 2024-01-31 16:43 | DVH ---
CHEST RADIOGRAPH Indication:NGT PLACEMENT Technique: Single frontal view of the chest was obtained COMPARISON: None FINDINGS: Lines and Tubes: Enteric catheter in satisfactory position. Right PICC in satisfactory position. Lungs: Clear Pleura: No effusion. No pneumothorax. Cardiomediastinal contours: Cardiomegaly. Bones: Unremarkable IMPRESSION: Enteric catheter in satisfactory position.
--- NOTE | 2024-01-31 16:48 | DVH ---
Exam: US US GUIDED VASCULAR ACCESS Clinical History: PICC LINE PLACEMENT Comparison: None Findings: Targeted sonographic evaluation of the right arm was obtained utilizing grayscale and color Doppler i mitch. IMPRESSION: Sonographic assistance for central line placement. Please refer to procedural report for detailed fin dings.
[2024-01-31 17:00] VITALS: BP 177/81; PULSE 97; RESP 21; TEMP 99.1; O2SAT 97
[2024-01-31] MEDS: ONDANSETRON HCL 4 MG/2 ML VIAL IV PRN (19:07)
[2024-01-31] MEDS: TPN PER PHARMACY IV NR (21:39)
[2024-01-31 22:00] VITALS: BP 151/87; PULSE 99; RESP 17; TEMP 98.4; O2SAT 97
[2024-01-31] MEDS: AMINO ACID INFUSION IN D10W 1,000 ML IV ONE (23:00)
[2024-02-01] VITALS (7 sets, daily range): BP systolic 142–168; BP diastolic 67–81; PULSE 86–95; RESP 17–18; TEMP 96.5–98.9; O2SAT 96–99
[2024-02-01 06:46] LABS: Basophils # (auto) 0 10 ^3/uL (0-0.2); Basophils % (auto) 0.2 % (0.0-2.0); Eosinophils # (auto) 0.1 10 ^3/uL (0-0.8); Eosinophils % (auto) 0.5 % (0.0-7.0); Hematocrit 42.3 % (36.0-46.0); Hemoglobin 14.1 g/dL (12.2-16.2); Lymphocytes # (auto) 1.7 10 ^3/uL (0.4-5.4); Lymphocytes % (auto) 15.9 % (10.0-50.0); Mean Corpuscular Hemoglobin 29.5 pg (28.0-32.0); Mean Corpuscular Hgb Conc. 33.3 g/dL (32.0-36.0); Mean Corpuscular Volume 88.6 fL (80.0-100.0); Monocytes # (auto) 0.7 10 ^3/uL (0-1.3); Monocytes % (auto) 6.7 % (0.0-12.0); Neutrophils % (auto) 76.7 % (37.0-80.0); Platelet Count (auto) 287 10^3/uL (140-450); Red Blood Cells 4.77 10^6/uL (4.0-5.20); Red Cell Distribution Width 14.5 % (11.8-14.3); White Blood Cell 10.5 10^3/uL (4.4-10.8)
[2024-02-01 06:50] LABS: Alanine Aminotransferase 12 U/L (7-40); Albumin 3.9 g/dL (3.2-4.8); Alkaline Phosphatase 74 U/L (46-116); Anion Gap 7 (5-15); Aspartate Aminotransferase 14 U/L (13-40); BUN/Creatinine Ratio 15.5 (10.0-20.0); Blood Urea Nitrogen 11 mg/dL (9-23); Calcium 9.2 mg/dL (8.7-10.4); Carbon Dioxide 24 mmol/L (20-31); Chloride 104 mmol/L (98-107); Glucose 104 mg/dL (74-106); Magnesium 1.9 mg/dL (1.6-2.6); Potassium 3.4 mmol/L (3.5-5.1); Sodium 135 mmol/L (136-145)
[2024-02-01 06:51] LABS: Phosphorus 2.1 mg/dL (2.4-5.1)
[2024-02-01 06:52] LABS: Bilirubin, Total 0.9 mg/dL (0.2-1.0); Total Protein 6.4 g/dL (5.7-8.2)
--- NOTE | 2024-02-01 13:20 | DVHPN2 ---
Reviewed: Care Plan, H&P, Labs, Medications, Previous Orders, Radiology Changes from previous H/P or p: No Changes General: Per HPI Eyes: No Pain, No Vision change, No Conjunctivae inflammation, No Eyelid inflammation, No Other, No Redness ENT: No Ear pain, No Ear discharge, No Nose pain, No Nose discharge, No Nose congestion, No Mouth pain, No Mouth swelling, No Throat pain, No Throat swelling, No Other Cardiovascular: No Chest Pain, No Palpitations, No Orthopnea, No Paroxysmal Noc. Dyspnea, No Edema, No Lt Headedness, No Other Respiratory: No Cough, No Dry, No Shortness of breath, No SOB with excertion, No Wheezing, No Hemoptysis, No Pleuritic Pain, No Sputum, No Other Gastrointestinal: No Nausea, No Vomiting; Abdominal Pain; No Diarrhea, No Constipation, No Melena, No Hematochezia, No Other Genitourinary: No Dysuria, No Frequency, No Incontinence, No Hematuria, No Retention, No Other Musculoskeletal: No other, No neck pain, No shoulder pain, No arm pain, No back pain, No hand pain, No leg pain, No foot pain Skin: No Rash, No Lesions, No Jaundice, No Bruising, No Other Objective Vitals Vital Signs Date Time Temp Pulse Resp B/P (MAP) Pulse Ox O2 Delivery O2 Flow Rate FiO2 02/01/24 09:00 96.5 95 17 147/67 (93) 96 96.5 01/31/24 20:00 Room Air* 0 21 Intake/Output Intake and Output 02/01/24 07:00 Intake Total 906 ml Output Total 865 ml Balance 41 ml Intake Oral 0 ml IV Total 906 ml Output Urine Total 850 ml Drainage Total 15 ml General Appearance: Alert, Cooperative, mild distress HEENT: Atraumatic, PERRLA, EOMI Neck: Supple Cardiovascular: Regular rate, Normal S1, Normal S2, No murmurs, Gallops, Rubs Abdomen: Normal bowel sounds, Soft, No tenderness, No hepatospenomegaly Psych/Mental Status: Mental status NL Medications Current Medications Medications Dose Ordered Sig/Sepideh Route Start Time Stop Time Status Last Admin Dose Admin Ceftriaxone Sodium 50 ml @ 100 mls/hr DAILY@09 IV 01/30/24 09:00 02/01/24 11:15 100 MLS/HR Metronidazole 100 ml @ 100 mls/hr Q8H IV 01/30/24 08:00 02/01/24 09:37 100 MLS/HR Pantoprazole Sodium 40 mg DAILY IV 01/30/24 10:00 02/01/24 09:38 40 MG Ondansetron HCl 4 mg Q4HP PRN IV 01/30/24 02:15 02/01/24 11:15 4 MG Acetaminophen 650 mg Q6HP PRN PO 01/30/24 02:15 Morphine Sulfate 2 mg Q4HPRN PRN IV 01/30/24 02:15 02/01/24 02:14 2 MG Hydralazine HCl 10 mg Q6HP PRN IV 01/30/24 02:15 02/01/24 04:55 10 MG Nitroglycerin 0.4 mg Q5MINP PRN SL 01/30/24 03:45 Morphine Sulfate 2 mg Q30M PRN IV 01/30/24 03:45 Diagnostic Test (Pha) 1 strip Q6HR 01/30/24 12:00 02/01/24 13:13 1 STRIP Insulin Human Regular FOLLOW SLIDING SCALE Q6HR SC 01/30/24 12:00 01/31/24 18:14 2 UNITS Dextrose 50 ml UD IV 01/30/24 11:45 Amino Acids 0 ml @ 0 mls/hr PER PHARMACY IV 01/30/24 11:45 Fat Emulsion Intravenous 50 ml/ Sodium Acetate 20 meq/Sodium Phosphate 20 meq/ Potassium Acetate 20 meq/Potassium Phosphate 22 meq/ Magnesium Sulfate 8 meq/ Multivitamins 10 ml/Chromium/ Copper/Manganese/ Zinc 1 ml/Amino Acids/Dextrose 893 ml @ 37 mls/hr Q24H9M IV 01/30/24 22:00 01/31/24 21:59 Cancel Sodium Chloride 10 ml QSHIFT@10,22 IV 01/30/24 22:00 02/01/24 10:00 10 ML Fat Emulsion Intravenous 50 ml/ Sodium Phosphate 10 meq/Potassium Chloride 10 meq/ Magnesium Sulfate 8 meq/ Multivitamins 10 ml/Chromium/ Copper/Manganese/ Zinc 1 ml/Amino Acids/Dextrose 870.5 ml @ 36 mls/hr [id number] IV 01/31/24 22:00 02/01/24 21:59 Fat Emulsion Intravenous 50 ml/ Sodium Phosphate 20 meq/Potassium Chloride 20 meq/ Magnesium Sulfate 8 meq/ Multivitamins 10 ml/Chromium/ Copper/Manganese/ Zinc 1 ml/Amino Acids/Dextrose 878 ml @ 36 mls/hr [id number] IV 02/01/24 22:00 02/02/24 21:59 Laboratory Results Laboratory Tests 02/01/24 05:45 Chemistry Test 02/01/24 05:45 Albumin 3.9 g/dL (3.2-4.8) Calcium Level 9.2 mg/dL (8.7-10.4) Magnesium Level 1.9 mg/dL (1.6-2.6) Phosphorus Level 2.1 mg/dL (2.4-5.1) L Total Protein 6.4 g/dL (5.7-8.2) LFT Test 02/01/24 05:45 Alanine Aminotransferase (ALT) 12 U/L (7-40) Alkaline Phosphatase 74 U/L (46-116) Aspartate Amino Transferase (AST) 14 U/L (13-40) Total Bilirubin 0.9 mg/dL (0.2-1.0) Urinalysis Test 01/29/24 23:10 Urine Color Straw (Yellow) Urine Clarity Clear (Clear) Urine pH 7.0 (5.0-9.0) Urine Specific [place] 1.012 (1.001-1.035) Urine Protein Negative (Negative) Urine Ketones Negative (Negative) Urine Blood Negative /uL (Negative) Urine Nitrite Negative (Negative) Urine Bilirubin Negative (Negative) Urine Urobilinogen Normal mg/dL (Negative) Urine Leukocyte Esterase Negative /uL (Negative) Urine RBC 2 /hpf (0 - 4) Urine WBC <1 /hpf (0 - 5) Urine Squamous Epithelial Cells None seen /hpf (<5) Urine Bacteria None seen /hpf (None Seen) Urine Glucose Normal mg/dL (Normal) Microbiology Microbiology Date/Time Source Procedure Growth Status 01/30/24 11:09 Peritoneal Fluid Gram Stain - Final Resulted 01/30/24 11:09 Peritoneal Fluid Anaerobic Culture Pending Resulted 01/30/24 11:09 Peritoneal Fluid Aerobic Culture - Preliminary Resulted Assessment/Plan Assessment/Plan Pneumoperitoneum Leukocytosis, unspecified Acute abdominal pain Generalized abdominal pain Diverticulitis of intestine with perforation status post surgery Diverticulitis of large intestine with perforation and abscess without bleeding 02/01/2024: encourage PT. consult PT/OT. Toradol for SHERMAN. no bowel movement yet discussed with at bedside Plan discussed with: Patient Date of Service: Feb 01, 2024 Billing Provider: THOMAS VILLALOBOS DO Common Visit Codes: [id number] INP/OBS CARE(HIGH) THOMAS VILLALOBOS DO Feb 01, 2024 13:20
--- NOTE | 2024-02-01 14:08 | DVHPN2 ---
Progress Note Date Seen: Feb 01, 2024 Medical Necessity Reason Pt with a Central, PICC or Fol: No Objective vital signs Vital Sign Date Time Temp Pulse Resp B/P (MAP) Pulse Ox O2 Delivery O2 Flow Rate FiO2 02/01/24 09:00 96.5 95 17 147/67 (93) 96 96.5 02/01/24 08:15 Room Air* 0 21 Total Intake and Output 01/31/24 01/31/24 02/01/24 15:00 23:00 07:00 Intake Total 150 ml 656 ml 100 ml Output Total 515 ml 350 ml Balance 150 ml 141 ml -250 ml medications Current Medications Medications Dose Ordered Sig/Sepideh Route Start Time Stop Time Status Last Admin Dose Admin Ceftriaxone Sodium 50 ml @ 100 mls/hr DAILY@09 IV 01/30/24 09:00 02/01/24 11:15 100 MLS/HR Metronidazole 100 ml @ 100 mls/hr Q8H IV 01/30/24 08:00 02/01/24 09:37 100 MLS/HR Pantoprazole Sodium 40 mg DAILY IV 01/30/24 10:00 02/01/24 09:38 40 MG Ondansetron HCl 4 mg Q4HP PRN IV 01/30/24 02:15 02/01/24 11:15 4 MG Acetaminophen 650 mg Q6HP PRN PO 01/30/24 02:15 Morphine Sulfate 2 mg Q4HPRN PRN IV 01/30/24 02:15 02/01/24 02:14 2 MG Hydralazine HCl 10 mg Q6HP PRN IV 01/30/24 02:15 02/01/24 04:55 10 MG Nitroglycerin 0.4 mg Q5MINP PRN SL 01/30/24 03:45 Morphine Sulfate 2 mg Q30M PRN IV 01/30/24 03:45 Diagnostic Test (Pha) 1 strip Q6HR 01/30/24 12:00 02/01/24 13:13 1 STRIP Insulin Human Regular FOLLOW SLIDING SCALE Q6HR SC 01/30/24 12:00 01/31/24 18:14 2 UNITS Dextrose 50 ml UD IV 01/30/24 11:45 Amino Acids 0 ml @ 0 mls/hr PER PHARMACY IV 01/30/24 11:45 Fat Emulsion Intravenous 50 ml/ Sodium Acetate 20 meq/Sodium Phosphate 20 meq/ Potassium Acetate 20 meq/Potassium Phosphate 22 meq/ Magnesium Sulfate 8 meq/ Multivitamins 10 ml/Chromium/ Copper/Manganese/ Zinc 1 ml/Amino Acids/Dextrose 893 ml @ 37 mls/hr Q24H9M IV 01/30/24 22:00 01/31/24 21:59 Cancel Sodium Chloride 10 ml QSHIFT@10,22 IV 01/30/24 22:00 02/01/24 10:00 10 ML Fat Emulsion Intravenous 50 ml/ Sodium Phosphate 10 meq/Potassium Chloride 10 meq/ Magnesium Sulfate 8 meq/ Multivitamins 10 ml/Chromium/ Copper/Manganese/ Zinc 1 ml/Amino Acids/Dextrose 870.5 ml @ 36 mls/hr [id number] IV 01/31/24 22:00 02/01/24 21:59 Fat Emulsion Intravenous 50 ml/ Sodium Phosphate 20 meq/Potassium Chloride 20 meq/ Magnesium Sulfate 8 meq/ Multivitamins 10 ml/Chromium/ Copper/Manganese/ Zinc 1 ml/Amino Acids/Dextrose 878 ml @ 36 mls/hr [id number] IV 02/01/24 22:00 02/02/24 21:59 laboratory and microbiology Laboratory Tests 02/01/24 05:45 Test 02/01/24 05:45 Range/Units Serum Glucose 104 74-106 mg/dL Problem List/Assessment/Plan Problem List/Assessment/Plan 01/31/24 C/O PAIN, WOUND CLEAN AND WELL APPROXIMATED, DRAINAGE SEROUS, NO BM NO FLATUS, MUST AMBULATE 02/01/24 refusing to ambulate despite tyhorough explanation of significance, abdo,men non distended, appropriately tender, drainage sero sanguineous. Plan discussed with: Patient, Spouse REYNA SNOW MD Feb 01, 2024 14:08
[2024-02-01] MEDS: POTASSIUM PHOSPHATE 26.4 MEQ in SODIUM CHL 0.9% 100 ML IV ONE (15:38)
[2024-02-01] MEDS: KETOROLAC TROMETH 30 MG/ML 1ML VIAL IV PRN (16:45)
--- NOTE | 2024-02-01 21:40 | DVHINCON2 ---
Date of service: Feb 01, [address] Bob Bucio Reason for Consultation Hyponatremia History of Present Illness Madeleine Ambriz is a 68-year-old F with a Past Medical History pertinent for Breast Cancer who presented to the hospital with complaint of acute LLQ non- radiating abdominal pain. Patient denies chest pain, shortness of breath, nausea, vomiting, fever or chills. While in ED, labs were remarkable for mildly elevated WBC 12.0. Platelets 302. Na 137. K 3.8. BUN 15. Creatinine 1.11. CT Abdomen Pelvis reported colonic diverticulosis with prominent inflammatory fat stranding at the sigmoid colon with prominent amount of pneumoperitoneum could be perforated diverticulitis; mildly distended loops of small bowel with increased mucosal enhancement could be ileus and a developing partial bowel obstruction also possible. Na decreased to 135 this AM. K 3.4. Patient denies any current abdominal pain. Allergies: Coded Allergies: Hydrocortisone (Verified Allergy, Intermediate, rash , 01/30/24) Home Meds Reported Medications Aspirin (Aspirin Low Dose) 81 Mg Chw, 1 TAB PO DAILY for 90 Days, #90 01/31/24 Lisinopril (Lisinopril) 10 Mg Tab, 1 TAB PO DAILY for 90 Days, #90 01/31/24 Atorvastatin Calcium (ATORVASTATIN CALCIUM) 40 Mg Tab, 1 TAB PO HS for 90 Days, #90 01/30/24 Alendronate Sodium (Alendronate Sodium) 70 Mg Tab, 1 TAB PO QWEEKLY for 84 Days, #12 01/30/24 Famotidine (Famotidine) 40 Mg Tab, 1 TAB PO DAILY for 90 Days, #90 01/30/24 Baclofen (Baclofen) 10 Mg Tab, 1 TAB PO HS for 30 Days, #30 01/30/24 Cholecalciferol (Vitamin D-3 Super Strengt) 2,000 Unit Tab, 1 TAB PO DAILY for 30 Days, #30 01/30/24 Amlodipine Besylate (Amlodipine Besylate) 5 Mg Tab, 1 TAB PO DAILY for 90 Days, #90 01/30/24 Ibuprofen Micronized (Ibuprofen) 800 Mg Tab, 1 TAB PO TID for 5 Days, #15 01/30/24 Triazolam (Triazolam) 0.25 Mg Tab, 1 TAB PO DAILY for 3 Days, #3 11/10/24 Amoxicillin Trihydrate (Amoxicillin) 500 Mg Cap, 1 CAP PO TID for DENTAL WORK for 7 Days, #21 01/30/24 Methylprednisolone (Methylprednisolone) 4 Mg Tab, TAB PO UD for DENTAL WORK for 6 Days, #21 01/30/24 Metoprolol Tartrate (Lopressor) 25 Mg Tb, 1 TAB PO DAILY for 90 Days, #90 01/30/24 Current Medications Current Medications Medications (Trade) Dose Ordered Sig/Sepideh Route PRN Reason Start Time Stop Time Status Last Admin Fat Emulsion Intravenous 50 ml/ Sodium Phosphate 10 meq/Potassium Chloride 10 meq/ Magnesium Sulfate 8 meq/ Multivitamins 10 ml/Chromium/ Copper/Manganese/ Zinc 1 ml/Amino Acids/Dextrose 870.5 ml @ 36 mls/hr [id number] IV 01/31/24 22:00 02/01/24 21:59 Fat Emulsion Intravenous 50 ml/ Sodium Phosphate 20 meq/Potassium Chloride 20 meq/ Magnesium Sulfate 8 meq/ Multivitamins 10 ml/Chromium/ Copper/Manganese/ Zinc 1 ml/Amino Acids/Dextrose 878 ml @ 36 mls/hr [id number] IV 02/01/24 22:00 02/02/24 21:59 Ketorolac Tromethamine (Toradol Injection) 15 mg Q6HPRN PRN IV MODERATE PAIN (4-6 PAIN SCALE) 02/01/24 15:00 02/06/24 14:59 02/01/24 16:45 Family History: FH: brain cancer G8 MOTHER Review of Systems Constitutional: No: Fever, Chills, Sweats, Weakness, Malaise, Other Cardiovascular: No: Chest Pain, Palpitations, Orthopnea, Paroxysmal Noc. Dyspnea, Edema, Lt Headedness, Other Gastrointestinal: Abdominal Pain; No: Nausea, Vomiting, Diarrhea, Constipation, Melena, Hematochezia, Other Genitourinary: No Dysuria, No Frequency, No Incontinence, No Hematuria, No Retention, No Other All other systems reviewed and negative unless otherwise noted in HPI. H&P Exam Vital Signs/I&O Vital Sign Date Time Temp Pulse Resp B/P (MAP) Pulse Ox O2 Delivery O2 Flow Rate FiO2 02/01/24 17:00 97.6 87 17 147/81 (103) 99 97.6 02/01/24 08:15 Room Air* 0 21 Intake and Output 01/31/24 02/01/24 19:00 07:00 Intake Total 806 ml 100 ml Output Total 515 ml 350 ml Balance 291 ml -250 ml Intake Oral 0 ml IV Total 806 ml 100 ml Output Urine Total 500 ml 350 ml Drainage Total 15 ml Physical Exam General Appearance: Cooperative, No acute distress HEENT: Atraumatic, PERRLA, EOMI, Mucous membr. moist/pink Respiratory: Clear to auscultation, Normal air movement Cardiovascular: Regular rate, Normal S1, Normal S2, No murmurs Abdominal: Normal bowel sounds, Soft, No hepatospenomegaly, No masses, Other (Reports tenderness) Extremities: No clubbing, No cyanosis, No edema, Normal pulses, No tenderness/swelling Skin: No rashes, No breakdown, No significant lesion Neuro: Normal gait, Normal speech, Strength at 5/5 X4 ext, Normal tone, Sensation intact, Cranial nerves 3-12 NL, Reflexes 2+ Psych/Mental Status: Alert, Oriented X3, Mental status NL, Mood NL Labs/Diagnostic Data Labs/Diagnostic Data Laboratory Tests Test 02/01/24 05:45 02/01/24 05:05 01/31/24 23:12 01/31/24 20:50 Range/Units White Blood Count 10.5 4.4-10.8 10^3/uL Red Blood Count 4.77 4.0-5.20 10^6/uL Hemoglobin 14.1 12.2-16.2 g/dL Hematocrit 42.3 # 36.0-46.0 % Mean Corpuscular Volume 88.6 80.0-100.0 fL Mean Corpuscular Hemoglobin 29.5 28.0-32.0 pg Mean Corpuscular Hemoglobin Concent 33.3 32.0-36.0 g/dL Red Cell Distribution Width 14.5 H 11.8-14.3 % Platelet Count 287 140-450 10^3/uL Mean Platelet Volume 8.3 6.9-10.8 fL Neutrophils (%) (Auto) 76.7 37.0-80.0 % Lymphocytes (%) (Auto) 15.9 10.0-50.0 % Monocytes (%) (Auto) 6.7 0.0-12.0 % Eosinophils (%) (Auto) 0.5 0.0-7.0 % Basophils (%) (Auto) 0.2 0.0-2.0 % Neutrophils # (Auto) 8.0 1.6-8.6 10 ^3/uL Lymphocytes # (Auto) 1.7 0.4-5.4 10 ^3/uL Monocytes # (Auto) 0.7 0-1.3 10 ^3/uL Eosinophils # (Auto) 0.1 0-0.8 10 ^3/uL Basophils # (Auto) 0 0-0.2 10 ^3/uL Nucleated Red Blood Cells 0.0 % Sodium Level 135 L 136-145 mmol/L Potassium Level 3.4 L 3.5-5.1 mmol/L Chloride Level 104 98-107 mmol/L Carbon Dioxide Level 24 20-31 mmol/L Anion Gap 7 5-15 Blood Urea Nitrogen 11 9-23 mg/dL Creatinine 0.71 0.550-1.02 mg/dL Glomerular Filtration Rate Calc 93 >90 mL/min BUN/Creatinine Ratio 15.5 10.0-20.0 Serum Glucose 104 74-106 mg/dL Calcium Level 9.2 8.7-10.4 mg/dL Phosphorus Level 2.1 L 2.4-5.1 mg/dL Magnesium Level 1.9 1.6-2.6 mg/dL Total Bilirubin 0.9 0.2-1.0 mg/dL Aspartate Amino Transferase (AST) 14 13-40 U/L Alanine Aminotransferase (ALT) 12 7-40 U/L Alkaline Phosphatase 74 46-116 U/L Total Protein 6.4 5.7-8.2 g/dL Albumin 3.9 3.2-4.8 g/dL POC Glucose 117 H 110 H 121 H 70-106 mg/dl Test 01/31/24 17:03 01/31/24 12:53 01/31/24 04:48 01/30/24 09:50 Range/Units POC Glucose 138 H 131 H 70-106 mg/dl White Blood Count 10.5 13.6 H 4.4-10.8 10^3/uL Red Blood Count 4.25 4.38 4.0-5.20 10^6/uL Hemoglobin 12.7 12.7 12.2-16.2 g/dL Hematocrit 37.7 38.3 36.0-46.0 % Mean Corpuscular Volume 88.7 87.5 80.0-100.0 fL Mean Corpuscular Hemoglobin 29.8 29.0 28.0-32.0 pg Mean Corpuscular Hemoglobin Concent 33.5 33.1 32.0-36.0 g/dL Red Cell Distribution Width 14.5 H 14.4 H 11.8-14.3 % Platelet Count 253 275 140-450 10^3/uL Mean Platelet Volume 8.2 8.1 6.9-10.8 fL Neutrophils (%) (Auto) 82.5 H 94.9 H 37.0-80.0 % Lymphocytes (%) (Auto) 11.3 3.3 L 10.0-50.0 % Monocytes (%) (Auto) 6.0 1.7 0.0-12.0 % Eosinophils (%) (Auto) 0.1 0.0 0.0-7.0 % Basophils (%) (Auto) 0.1 0.1 0.0-2.0 % Neutrophils # (Auto) 8.6 12.9 H 1.6-8.6 10 ^3/uL Lymphocytes # (Auto) 1.2 0.4 0.4-5.4 10 ^3/uL Monocytes # (Auto) 0.6 0.2 0-1.3 10 ^3/uL Eosinophils # (Auto) 0 0 0-0.8 10 ^3/uL Basophils # (Auto) 0 0 0-0.2 10 ^3/uL Nucleated Red Blood Cells 0.0 0.0 % Sodium Level 139 139 136-145 mmol/L Potassium Level 3.6 4.2 3.5-5.1 mmol/L Chloride Level 107 107 98-107 mmol/L Carbon Dioxide Level 26 28 20-31 mmol/L Anion Gap 6 4 L 5-15 Blood Urea Nitrogen 12 14 9-23 mg/dL Creatinine 0.93 1.00 0.550-1.02 mg/dL Glomerular Filtration Rate Calc 67 62 >90 mL/min BUN/Creatinine Ratio 12.9 14.0 10.0-20.0 Serum Glucose 125 H 164 H 74-106 mg/dL Calcium Level 8.9 8.9 8.7-10.4 mg/dL Phosphorus Level 2.4 3.2 2.4-5.1 mg/dL Magnesium Level 1.9 1.7 1.6-2.6 mg/dL Total Bilirubin 0.8 0.8 0.2-1.0 mg/dL Aspartate Amino Transferase (AST) 17 20 13-40 U/L Alanine Aminotransferase (ALT) 15 19 7-40 U/L Alkaline Phosphatase 69 76 46-116 U/L Total Protein 6.3 6.5 5.7-8.2 g/dL Albumin 3.6 3.8 3.2-4.8 g/dL Triglycerides Level 82 < 150 mg/dL Test 01/30/24 01:45 01/29/24 23:10 01/29/24 22:30 Range/Units Prothrombin Time 10.9 9.3-11.8 sec Prothrombin Time INR 1.03 0.9-1.15 Activated Partial Thromboplast Time 25.9 24.5-34.5 SEC Urine Color Straw Yellow Urine Clarity Clear Clear Urine pH 7.0 5.0-9.0 Urine Specific [place] 1.012 1.001-1.035 Urine Protein Negative Negative Urine Ketones Negative Negative Urine Blood Negative Negative /uL Urine Nitrite Negative Negative Urine Bilirubin Negative Negative Urine Urobilinogen Normal Negative mg/dL Urine Leukocyte Esterase Negative Negative /uL Urine RBC 2 0 - 4 /hpf Urine WBC <1 0 - 5 /hpf Urine Squamous Epithelial Cells None seen <5 /hpf Urine Bacteria None seen None Seen /hpf Urine Glucose Normal Normal mg/dL White Blood Count 12.0 H 4.4-10.8 10^3/uL Red Blood Count 4.74 4.0-5.20 10^6/uL Hemoglobin 14.0 12.2-16.2 g/dL Hematocrit 41.5 36.0-46.0 % Mean Corpuscular Volume 87.7 80.0-100.0 fL Mean Corpuscular Hemoglobin 29.5 28.0-32.0 pg Mean Corpuscular Hemoglobin Concent 33.6 32.0-36.0 g/dL Red Cell Distribution Width 14.1 11.8-14.3 % Platelet Count 302 140-450 10^3/uL Mean Platelet Volume 8.0 6.9-10.8 fL Neutrophils (%) (Auto) 83.3 H 37.0-80.0 % Lymphocytes (%) (Auto) 11.7 10.0-50.0 % Monocytes (%) (Auto) 3.3 0.0-12.0 % Eosinophils (%) (Auto) 1.3 0.0-7.0 % Basophils (%) (Auto) 0.4 0.0-2.0 % Neutrophils # (Auto) 9.9 H 1.6-8.6 10 ^3/uL Lymphocytes # (Auto) 1.4 0.4-5.4 10 ^3/uL Monocytes # (Auto) 0.4 0-1.3 10 ^3/uL Eosinophils # (Auto) 0.2 0-0.8 10 ^3/uL Basophils # (Auto) 0.1 0-0.2 10 ^3/uL Nucleated Red Blood Cells 0.0 % Sodium Level 137 136-145 mmol/L Potassium Level 3.8 3.5-5.1 mmol/L Chloride Level 101 98-107 mmol/L Carbon Dioxide Level 27 20-31 mmol/L Anion Gap 9 5-15 Blood Urea Nitrogen 15 9-23 mg/dL Creatinine 1.11 H 0.550-1.02 mg/dL Glomerular Filtration Rate Calc 54 >90 mL/min BUN/Creatinine Ratio 13.5 10.0-20.0 Serum Glucose 100 74-106 mg/dL Calcium Level 9.9 8.7-10.4 mg/dL Problems(with codes): (1) Hyponatremia (2) Diverticulitis of large intestine with perforation and abscess without bleeding (3) Abdominal pain Plan/Recommendation Agreement with your ongoing assessment and plan of care. Pending PT/OT evals. Daily lab monitoring. Potassium replacement. IV or oral hydration. IV Ceftriaxone and Metronidazole. Pain management prn. Bowel care regimen. Nutritional support. Additional plan as per the hospital course. Plan discussed with: Patient, Other (RN) JOHAN SANCHES DO Feb 01, 2024 19:53
[2024-02-01] MEDS: TPN PER PHARMACY IV NR (22:05)
[2024-02-02] VITALS (7 sets, daily range): BP systolic 138–153; BP diastolic 60–89; PULSE 72–101; RESP 17–20; TEMP 96.8–99.2; O2SAT 97–100
[2024-02-02 06:33] LABS: Basophils # (auto) 0 10 ^3/uL (0-0.2); Basophils % (auto) 0.3 % (0.0-2.0); Eosinophils # (auto) 0.3 10 ^3/uL (0-0.8); Eosinophils % (auto) 3.9 % (0.0-7.0); Hematocrit 39.9 % (36.0-46.0); Hemoglobin 13.3 g/dL (12.2-16.2); Lymphocytes % (auto) 12.3 % (10.0-50.0); Mean Corpuscular Hemoglobin 29.6 pg (28.0-32.0); Mean Corpuscular Hgb Conc. 33.5 g/dL (32.0-36.0); Mean Corpuscular Volume 88.5 fL (80.0-100.0); Monocytes # (auto) 0.5 10 ^3/uL (0-1.3); Monocytes % (auto) 6.3 % (0.0-12.0); Neutrophils # (auto) 6.3 10 ^3/uL (1.6-8.6); Neutrophils % (auto) 77.2 % (37.0-80.0); Platelet Count (auto) 262 10^3/uL (140-450); Red Cell Distribution Width 14.1 % (11.8-14.3); White Blood Cell 8.1 10^3/uL (4.4-10.8)
[2024-02-02 06:53] LABS: Alanine Aminotransferase 11 U/L (7-40); Albumin 3.4 g/dL (3.2-4.8); Alkaline Phosphatase 64 U/L (46-116); Anion Gap 7 (5-15); Aspartate Aminotransferase 10 U/L (13-40); BUN/Creatinine Ratio 23.7 (10.0-20.0); Blood Urea Nitrogen 18 mg/dL (9-23); Calcium 8.9 mg/dL (8.7-10.4); Carbon Dioxide 26 mmol/L (20-31); Chloride 105 mmol/L (98-107); Glucose 121 mg/dL (74-106); Magnesium 1.9 mg/dL (1.6-2.6); Phosphorus 3.1 mg/dL (2.4-5.1); Potassium 3.4 mmol/L (3.5-5.1); Sodium 138 mmol/L (136-145)
[2024-02-02 06:54] LABS: Bilirubin, Total 0.8 mg/dL (0.2-1.0); Total Protein 5.9 g/dL (5.7-8.2)
[2024-02-02] MEDS: POTASSIUM CHL 20MEQ/100ML 100 ML IV SCH (11:50)
--- NOTE | 2024-02-02 13:20 | DVHPN2 ---
Reviewed: Care Plan, H&P, Labs, Medications, Previous Orders, Radiology Changes from previous H/P or p: No Changes General: Per HPI Eyes: No Pain, No Vision change, No Conjunctivae inflammation, No Eyelid inflammation, No Other, No Redness ENT: No Ear pain, No Ear discharge, No Nose pain, No Nose discharge, No Nose congestion, No Mouth pain, No Mouth swelling, No Throat pain, No Throat swelling, No Other Cardiovascular: No Chest Pain, No Palpitations, No Orthopnea, No Paroxysmal Noc. Dyspnea, No Edema, No Lt Headedness, No Other Respiratory: No Cough, No Dry, No Shortness of breath, No SOB with excertion, No Wheezing, No Hemoptysis, No Pleuritic Pain, No Sputum, No Other Gastrointestinal: No Nausea, No Vomiting; Abdominal Pain; No Diarrhea, No Constipation, No Melena, No Hematochezia, No Other Genitourinary: No Dysuria, No Frequency, No Incontinence, No Hematuria, No Retention, No Other Musculoskeletal: No other, No neck pain, No shoulder pain, No arm pain, No back pain, No hand pain, No leg pain, No foot pain Skin: No Rash, No Lesions, No Jaundice, No Bruising, No Other Objective Vitals Vital Signs Date Time Temp Pulse Resp B/P (MAP) Pulse Ox O2 Delivery O2 Flow Rate FiO2 02/02/24 13:15 98.9 80 20 153/89 (110) 98 98.9 02/02/24 08:00 Room Air* 0 21 Intake/Output Intake and Output 02/02/24 07:00 Intake Total 707 ml Output Total 1083 ml Balance -376 ml Intake Oral 0 ml IV Total 707 ml Output Urine Total 800 ml Gastric Drainage Total 250 ml Drainage Total 33 ml General Appearance: Alert, Oriented X3, Cooperative, mild distress HEENT: Atraumatic, PERRLA, EOMI Neck: Supple Cardiovascular: Regular rate, Normal S1, Normal S2, No murmurs, Gallops, Rubs Abdomen: Normal bowel sounds, Soft, No tenderness, No hepatospenomegaly Psych/Mental Status: Mental status NL Medications Current Medications Medications Dose Ordered Sig/Sepideh Route Start Time Stop Time Status Last Admin Dose Admin Ceftriaxone Sodium 50 ml @ 100 mls/hr DAILY@09 IV 01/30/24 09:00 02/02/24 09:40 100 MLS/HR Metronidazole 100 ml @ 100 mls/hr Q8H IV 01/30/24 08:00 02/02/24 06:12 100 MLS/HR Pantoprazole Sodium 40 mg DAILY IV 01/30/24 10:00 02/02/24 09:40 40 MG Ondansetron HCl 4 mg Q4HP PRN IV 01/30/24 02:15 02/01/24 11:15 4 MG Acetaminophen 650 mg Q6HP PRN PO 01/30/24 02:15 Morphine Sulfate 2 mg Q4HPRN PRN IV 01/30/24 02:15 02/01/24 02:14 2 MG Hydralazine HCl 10 mg Q6HP PRN IV 01/30/24 02:15 02/01/24 04:55 10 MG Nitroglycerin 0.4 mg Q5MINP PRN SL 01/30/24 03:45 Morphine Sulfate 2 mg Q30M PRN IV 01/30/24 03:45 Diagnostic Test (Pha) 1 strip Q6HR 01/30/24 12:00 02/02/24 06:05 1 STRIP Insulin Human Regular FOLLOW SLIDING SCALE Q6HR SC 01/30/24 12:00 02/02/24 06:07 2 UNITS Dextrose 50 ml UD IV 01/30/24 11:45 Amino Acids 0 ml @ 0 mls/hr PER PHARMACY IV 01/30/24 11:45 Fat Emulsion Intravenous 50 ml/ Sodium Acetate 20 meq/Sodium Phosphate 20 meq/ Potassium Acetate 20 meq/Potassium Phosphate 22 meq/ Magnesium Sulfate 8 meq/ Multivitamins 10 ml/Chromium/ Copper/Manganese/ Zinc 1 ml/Amino Acids/Dextrose 893 ml @ 37 mls/hr Q24H9M IV 01/30/24 22:00 01/31/24 21:59 Cancel Sodium Chloride 10 ml QSHIFT@10,22 IV 01/30/24 22:00 02/02/24 09:40 10 ML Fat Emulsion Intravenous 50 ml/ Sodium Phosphate 20 meq/Potassium Chloride 20 meq/ Magnesium Sulfate 8 meq/ Multivitamins 10 ml/Chromium/ Copper/Manganese/ Zinc 1 ml/Amino Acids/Dextrose 878 ml @ 36 mls/hr [id number] IV 02/01/24 22:00 02/02/24 21:59 11/12/24 22:05 36 MLS/HR Ketorolac Tromethamine 15 mg Q6HPRN PRN IV 02/01/24 15:00 02/06/24 14:59 02/02/24 02:51 15 MG Fat Emulsion Intravenous 100 ml/Sodium Phosphate 20 meq/ Potassium Chloride 40 meq/ Magnesium Sulfate 8 meq/ Multivitamins 10 ml/Chromium/ Copper/Manganese/ Zinc 1 ml/Amino Acids/Dextrose 1,038 ml @ 43 mls/hr Q24H9M IV 02/02/24 22:00 02/03/24 21:59 Potassium Chloride 100 ml @ 50 mls/hr Q2H IV 02/02/24 10:00 02/02/24 13:59 02/02/24 11:50 50 MLS/HR Laboratory Results Laboratory Tests 02/02/24 05:49 Chemistry Test 02/02/24 05:49 Albumin 3.4 g/dL (3.2-4.8) Calcium Level 8.9 mg/dL (8.7-10.4) Magnesium Level 1.9 mg/dL (1.6-2.6) Phosphorus Level 3.1 mg/dL (2.4-5.1) Total Protein 5.9 g/dL (5.7-8.2) LFT Test 02/02/24 05:49 Alanine Aminotransferase (ALT) 11 U/L (7-40) Alkaline Phosphatase 64 U/L (46-116) Aspartate Amino Transferase (AST) 10 U/L (13-40) L Total Bilirubin 0.8 mg/dL (0.2-1.0) Urinalysis Test 01/29/24 23:10 Urine Color Straw (Yellow) Urine Clarity Clear (Clear) Urine pH 7.0 (5.0-9.0) Urine Specific [place] 1.012 (1.001-1.035) Urine Protein Negative (Negative) Urine Ketones Negative (Negative) Urine Blood Negative /uL (Negative) Urine Nitrite Negative (Negative) Urine Bilirubin Negative (Negative) Urine Urobilinogen Normal mg/dL (Negative) Urine Leukocyte Esterase Negative /uL (Negative) Urine RBC 2 /hpf (0 - 4) Urine WBC <1 /hpf (0 - 5) Urine Squamous Epithelial Cells None seen /hpf (<5) Urine Bacteria None seen /hpf (None Seen) Urine Glucose Normal mg/dL (Normal) Microbiology Microbiology Date/Time Source Procedure Growth Status 01/30/24 11:09 Peritoneal Fluid Gram Stain - Final Resulted 01/30/24 11:09 Peritoneal Fluid Anaerobic Culture - Preliminary Resulted 01/30/24 11:09 Peritoneal Fluid Aerobic Culture - Preliminary Resulted Labs and/or images reviewed: Labs reviewed by me, Image(s) reviewed by me Assessment/Plan Assessment/Plan Pneumoperitoneum Leukocytosis, unspecified Acute abdominal pain Generalized abdominal pain Diverticulitis of intestine with perforation status post surgery Diverticulitis of large intestine with perforation and abscess without bleeding 02/01/2024: encourage PT. consult PT/OT. Toradol for SHERMAN. no bowel movement yet discussed with daughter at bedside 02/02/2024: continue with current tx. Still on NG tube. advance diet per Gen Surg. daughter asking if pt can ambulate. Pt still has NG tube with suction in place Plan discussed with: Patient My Orders Orders - THOMAS VILLALOBOS DO Procedure Category Date Status Time Discontinue Tele RASHMI 02/01/24 In Process 13:42 Ketorolac Injection PHA 02/01/24 In Process (Toradol Injection) 15:00 *Dr. Lisa Schmid CONS 02/01/24 Transmitted 14:55 Date of Service: Feb 02, 2024 Billing Provider: THOMAS VILLALOBOS DO Common Visit Codes: [id number] INP/OBS CARE(HIGH) THOMAS VILLALOBOS DO Feb 02, 2024 13:20
--- NOTE | 2024-02-02 20:10 | DVHPN2 ---
Progress Note - Dictate Date Seen: Feb 02, 2024 Medical Necessity Reason Pt with a Central, PICC or Fol: No Subjective Patient was seen and evaluated in follow up. No acute events overnight. No new complaints. Patient still has NG tube with suction in place. Patient's daughter would like patient to start ambulating. Pending PT eval. Na improved. vital signs Vital Sign Date Time Temp Pulse Resp B/P (MAP) Pulse Ox O2 Delivery O2 Flow Rate FiO2 02/02/24 15:56 168/64 02/02/24 13:15 98.9 80 20 98 98.9 02/02/24 08:00 Room Air* 0 21 Total Intake and Output 02/01/24 02/01/24 02/02/24 15:00 23:00 07:00 Intake Total 50 ml 657 ml Output Total 868 ml 215 ml Balance 50 ml -211 ml -215 ml medications Current Medications Medications Dose Ordered Sig/Sepideh Route Start Time Stop Time Status Last Admin Dose Admin Ceftriaxone Sodium 50 ml @ 100 mls/hr DAILY@09 IV 01/30/24 09:00 02/02/24 09:40 100 MLS/HR Metronidazole 100 ml @ 100 mls/hr Q8H IV 01/30/24 08:00 02/02/24 16:01 100 MLS/HR Pantoprazole Sodium 40 mg DAILY IV 01/30/24 10:00 02/02/24 09:40 40 MG Ondansetron HCl 4 mg Q4HP PRN IV 01/30/24 02:15 02/02/24 13:49 4 MG Acetaminophen 650 mg Q6HP PRN PO 01/30/24 02:15 Morphine Sulfate 2 mg Q4HPRN PRN IV 01/30/24 02:15 02/01/24 02:14 2 MG Hydralazine HCl 10 mg Q6HP PRN IV 01/30/24 02:15 02/02/24 15:56 10 MG Nitroglycerin 0.4 mg Q5MINP PRN SL 01/30/24 03:45 Morphine Sulfate 2 mg Q30M PRN IV 01/30/24 03:45 Diagnostic Test (Pha) 1 strip Q6HR 01/30/24 12:00 02/02/24 06:05 1 STRIP Insulin Human Regular FOLLOW SLIDING SCALE Q6HR SC 01/30/24 12:00 02/02/24 06:07 2 UNITS Dextrose 50 ml UD IV 01/30/24 11:45 Amino Acids 0 ml @ 0 mls/hr PER PHARMACY IV 01/30/24 11:45 Fat Emulsion Intravenous 50 ml/ Sodium Acetate 20 meq/Sodium Phosphate 20 meq/ Potassium Acetate 20 meq/Potassium Phosphate 22 meq/ Magnesium Sulfate 8 meq/ Multivitamins 10 ml/Chromium/ Copper/Manganese/ Zinc 1 ml/Amino Acids/Dextrose 893 ml @ 37 mls/hr Q24H9M IV 01/30/24 22:00 01/31/24 21:59 Cancel Sodium Chloride 10 ml QSHIFT@10,22 IV 01/30/24 22:00 02/02/24 09:40 10 ML Fat Emulsion Intravenous 50 ml/ Sodium Phosphate 20 meq/Potassium Chloride 20 meq/ Magnesium Sulfate 8 meq/ Multivitamins 10 ml/Chromium/ Copper/Manganese/ Zinc 1 ml/Amino Acids/Dextrose 878 ml @ 36 mls/hr [id number] IV 02/01/24 22:00 02/02/24 21:59 02/01/24 22:05 36 MLS/HR Ketorolac Tromethamine 15 mg Q6HPRN PRN IV 02/01/24 15:00 02/06/24 14:59 02/02/24 02:51 15 MG Fat Emulsion Intravenous 100 ml/Sodium Phosphate 20 meq/ Potassium Chloride 40 meq/ Magnesium Sulfate 8 meq/ Multivitamins 10 ml/Chromium/ Copper/Manganese/ Zinc 1 ml/Amino Acids/Dextrose 1,038 ml @ 43 mls/hr Q24H9M IV 02/02/24 22:00 02/03/24 21:59 objective Physical Exam General Appearance: Cooperative, No acute distress HEENT: Atraumatic, PERRLA, EOMI, Mucous membr. moist/pink Respiratory: Clear to auscultation, Normal air movement Cardiovascular: Regular rate, Normal S1, Normal S2, No murmurs Abdominal: Normal bowel sounds, Soft, No hepatospenomegaly, No masses, Other (Reports tenderness) Extremities: No clubbing, No cyanosis, No edema, Normal pulses, No tenderness/swelling Skin: No rashes, No breakdown, No significant lesion Neuro: Normal gait, Normal speech, Strength at 5/5 X4 ext, Normal tone, Sensation intact, Cranial nerves 3-12 NL, Reflexes 2+ Psych/Mental Status: Alert, Oriented X3, Mental status NL, Mood NL laboratory and microbiology Laboratory Tests 02/02/24 05:49 Test 02/02/24 05:49 Range/Units Serum Glucose 121 H 74-106 mg/dL Problem List 1) Hyponatremia (2) Diverticulitis of large intestine with perforation and abscess without bleeding (3) Abdominal pain Assessment/Plan Agree with current supportive medical care. PT/OT. Daily lab monitoring; electrolyte replacement prn. IV or oral hydration. IV Ceftriaxone and Metronidazole. Pain management prn. Bowel care regimen. Nutritional support with TPN. Advance diet per Surgery recs. Additional plan as per the hospital course. Dietary Evaluation Review Comments: 1) Increase TPN to meet at least 75% or estimated needs 2) Advance pt diet when medically feasible to a 2gm Sodium diet 3) Continue current plan of care Expected Outcomes/Goals: 1) Pt to receive adequate nutrition support 2) Pt diet to advance 3) F/U in 2-3 days Plan discussed with: Patient, Other (RN) JOHAN SANCHES DO Feb 02, 2024 20:10
[2024-02-02] MEDS: TPN PER PHARMACY IV NR (22:39)
[2024-02-03] VITALS (11 sets, daily range): BP systolic 135–183; BP diastolic 60–86; PULSE 83–108; RESP 16–20; TEMP 96.5–98.9; O2SAT 97–98
[2024-02-03 07:19] LABS: Basophils # (auto) 0 10 ^3/uL (0-0.2); Basophils % (auto) 0.2 % (0.0-2.0); Eosinophils # (auto) 0.3 10 ^3/uL (0-0.8); Eosinophils % (auto) 3.9 % (0.0-7.0); Hematocrit 40.7 % (36.0-46.0); Hemoglobin 13.4 g/dL (12.2-16.2); Lymphocytes # (auto) 0.9 10 ^3/uL (0.4-5.4); Lymphocytes % (auto) 11.9 % (10.0-50.0); Mean Corpuscular Hemoglobin 28.9 pg (28.0-32.0); Mean Corpuscular Hgb Conc. 32.9 g/dL (32.0-36.0); Mean Corpuscular Volume 87.8 fL (80.0-100.0); Monocytes # (auto) 0.6 10 ^3/uL (0-1.3); Monocytes % (auto) 7.2 % (0.0-12.0); Neutrophils # (auto) 6.1 10 ^3/uL (1.6-8.6); Neutrophils % (auto) 76.8 % (37.0-80.0); Nucleated Red Blood Cells % 0.1 %; Platelet Count (auto) 271 10^3/uL (140-450); Red Blood Cells 4.63 10^6/uL (4.0-5.20); Red Cell Distribution Width 13.9 % (11.8-14.3)
[2024-02-03 07:40] LABS: Alanine Aminotransferase 10 U/L (7-40); Albumin 3.5 g/dL (3.2-4.8); Alkaline Phosphatase 64 U/L (46-116); Anion Gap 11 (5-15); Aspartate Aminotransferase 14 U/L (13-40); BUN/Creatinine Ratio 30.2 (10.0-20.0); Blood Urea Nitrogen 19 mg/dL (9-23); Calcium 8.8 mg/dL (8.7-10.4); Carbon Dioxide 23 mmol/L (20-31); Chloride 108 mmol/L (98-107); Glucose 91 mg/dL (74-106); Potassium 3.6 mmol/L (3.5-5.1); Sodium 142 mmol/L (136-145)
[2024-02-03 07:41] LABS: Bilirubin, Total 0.8 mg/dL (0.2-1.0); Total Protein 5.8 g/dL (5.7-8.2)
--- NOTE | 2024-02-03 08:48 | DVHPN2 ---
Progress Note Date Seen: Feb 03, 2024 Medical Necessity Reason Pt with a Central, PICC or Fol: No Objective vital signs Vital Sign Date Time Temp Pulse Resp B/P (MAP) Pulse Ox O2 Delivery O2 Flow Rate FiO2 02/03/24 05:00 98.0 83 18 157/68 (97) 98 98.0 02/02/24 20:00 Room Air* 0 21 Total Intake and Output 02/02/24 02/02/24 02/03/24 14:59 22:59 06:59 Intake Total 250 ml 632 ml 100 ml Output Total 15 ml 760 ml 275 ml Balance 235 ml -128 ml -175 ml medications Current Medications Medications Dose Ordered Sig/Sepideh Route Start Time Stop Time Status Last Admin Dose Admin Ceftriaxone Sodium 50 ml @ 100 mls/hr DAILY@09 IV 01/30/24 09:00 02/02/24 09:40 100 MLS/HR Metronidazole 100 ml @ 100 mls/hr Q8H IV 01/30/24 08:00 02/03/24 00:47 100 MLS/HR Pantoprazole Sodium 40 mg DAILY IV 01/30/24 10:00 02/02/24 09:40 40 MG Ondansetron HCl 4 mg Q4HP PRN IV 01/30/24 02:15 02/02/24 13:49 4 MG Acetaminophen 650 mg Q6HP PRN PO 01/30/24 02:15 Morphine Sulfate 2 mg Q4HPRN PRN IV 01/30/24 02:15 02/01/24 02:14 2 MG Hydralazine HCl 10 mg Q6HP PRN IV 01/30/24 02:15 02/02/24 15:56 10 MG Nitroglycerin 0.4 mg Q5MINP PRN SL 01/30/24 03:45 Morphine Sulfate 2 mg Q30M PRN IV 01/30/24 03:45 Diagnostic Test (Pha) 1 strip Q6HR 01/30/24 12:00 02/03/24 06:41 1 STRIP Insulin Human Regular FOLLOW SLIDING SCALE Q6HR SC 01/30/24 12:00 02/03/24 00:59 2 UNITS Dextrose 50 ml UD IV 01/30/24 11:45 Amino Acids 0 ml @ 0 mls/hr PER PHARMACY IV 01/30/24 11:45 Fat Emulsion Intravenous 50 ml/ Sodium Acetate 20 meq/Sodium Phosphate 20 meq/ Potassium Acetate 20 meq/Potassium Phosphate 22 meq/ Magnesium Sulfate 8 meq/ Multivitamins 10 ml/Chromium/ Copper/Manganese/ Zinc 1 ml/Amino Acids/Dextrose 893 ml @ 37 mls/hr Q24H9M IV 01/30/24 22:00 01/31/24 21:59 Cancel Sodium Chloride 10 ml QSHIFT@10,22 IV 01/30/24 22:00 02/02/24 22:28 10 ML Ketorolac Tromethamine 15 mg Q6HPRN PRN IV 02/01/24 15:00 02/06/24 14:59 02/02/24 21:16 15 MG Fat Emulsion Intravenous 100 ml/Sodium Phosphate 20 meq/ Potassium Chloride 40 meq/ Magnesium Sulfate 8 meq/ Multivitamins 10 ml/Chromium/ Copper/Manganese/ Zinc 1 ml/Amino Acids/Dextrose 1,038 ml @ 43 mls/hr Q24H9M IV 02/02/24 22:00 02/03/24 21:59 02/02/24 22:39 43 MLS/HR Fat Emulsion Intravenous 100 ml/Potassium Acetate 20 meq/ Potassium Phosphate 20 meq/ Magnesium Sulfate 8 meq/ Multivitamins 10 ml/Chromium/ Copper/Manganese/ Zinc 1 ml/Amino Acids/Dextrose 1,127.5455 ml @ 47 mls/hr Q24H IV 02/03/24 22:00 02/04/24 21:59 laboratory and microbiology Laboratory Tests 02/03/24 06:00 Test 02/03/24 06:00 Range/Units Serum Glucose 91 74-106 mg/dL Problem List/Assessment/Plan Problem List/Assessment/Plan 01/31/24 C/O PAIN, WOUND CLEAN AND WELL APPROXIMATED, DRAINAGE SEROUS, NO BM NO FLATUS, MUST AMBULATE 02/01/24 refusing to ambulate despite tyhorough explanation of significance, abdo,men non distended, appropriately tender, drainage sero sanguineous. 02/03/24 PASSING FLATUS, FEELS MUCH BETTERE, ABDOMEN SOFT, NON DISTENDED, MINIMALLY TENDER, WILL DC NGT AND START PO LIQUIDS Plan discussed with: Patient Dietary Evaluation Review Comments: 1) Increase TPN to meet at least 75% or estimated needs 2) Advance pt diet when medically feasible to a 2gm Sodium diet 3) Continue current plan of care Expected Outcomes/Goals: 1) Pt to receive adequate nutrition support 2) Pt diet to advance 3) F/U in 2-3 days REYNA SNOW MD Feb 03, 2024 08:47
--- NOTE | 2024-02-03 08:53 | DVHPN2 ---
Progress Note Date Seen: Feb 03, 2024 Medical Necessity Reason Pt with a Central, PICC or Fol: No Objective vital signs Vital Sign Date Time Temp Pulse Resp B/P (MAP) Pulse Ox O2 Delivery O2 Flow Rate FiO2 02/03/24 05:00 98.0 83 18 157/68 (97) 98 98.0 02/02/24 20:00 Room Air* 0 21 Total Intake and Output 02/02/24 02/02/24 02/03/24 15:00 23:00 07:00 Intake Total 250 ml 632 ml 100 ml Output Total 760 ml 275 ml Balance 250 ml -128 ml -175 ml medications Current Medications Medications Dose Ordered Sig/Sepideh Route Start Time Stop Time Status Last Admin Dose Admin Ceftriaxone Sodium 50 ml @ 100 mls/hr DAILY@09 IV 01/30/24 09:00 02/02/24 09:40 100 MLS/HR Metronidazole 100 ml @ 100 mls/hr Q8H IV 01/30/24 08:00 02/03/24 00:47 100 MLS/HR Pantoprazole Sodium 40 mg DAILY IV 01/30/24 10:00 02/02/24 09:40 40 MG Ondansetron HCl 4 mg Q4HP PRN IV 01/30/24 02:15 02/02/24 13:49 4 MG Acetaminophen 650 mg Q6HP PRN PO 01/30/24 02:15 Morphine Sulfate 2 mg Q4HPRN PRN IV 01/30/24 02:15 02/01/24 02:14 2 MG Hydralazine HCl 10 mg Q6HP PRN IV 01/30/24 02:15 02/02/24 15:56 10 MG Nitroglycerin 0.4 mg Q5MINP PRN SL 01/30/24 03:45 Morphine Sulfate 2 mg Q30M PRN IV 01/30/24 03:45 Diagnostic Test (Pha) 1 strip Q6HR 01/30/24 12:00 02/03/24 06:41 1 STRIP Insulin Human Regular FOLLOW SLIDING SCALE Q6HR SC 01/30/24 12:00 02/03/24 00:59 2 UNITS Dextrose 50 ml UD IV 01/30/24 11:45 Amino Acids 0 ml @ 0 mls/hr PER PHARMACY IV 01/30/24 11:45 Fat Emulsion Intravenous 50 ml/ Sodium Acetate 20 meq/Sodium Phosphate 20 meq/ Potassium Acetate 20 meq/Potassium Phosphate 22 meq/ Magnesium Sulfate 8 meq/ Multivitamins 10 ml/Chromium/ Copper/Manganese/ Zinc 1 ml/Amino Acids/Dextrose 893 ml @ 37 mls/hr Q24H9M IV 01/30/24 22:00 01/31/24 21:59 Cancel Sodium Chloride 10 ml QSHIFT@10,22 IV 01/30/24 22:00 02/02/24 22:28 10 ML Ketorolac Tromethamine 15 mg Q6HPRN PRN IV 02/01/24 15:00 02/06/24 14:59 02/02/24 21:16 15 MG Fat Emulsion Intravenous 100 ml/Sodium Phosphate 20 meq/ Potassium Chloride 40 meq/ Magnesium Sulfate 8 meq/ Multivitamins 10 ml/Chromium/ Copper/Manganese/ Zinc 1 ml/Amino Acids/Dextrose 1,038 ml @ 43 mls/hr Q24H9M IV 02/02/24 22:00 02/03/24 21:59 02/02/24 22:39 43 MLS/HR Fat Emulsion Intravenous 100 ml/Potassium Acetate 20 meq/ Potassium Phosphate 20 meq/ Magnesium Sulfate 8 meq/ Multivitamins 10 ml/Chromium/ Copper/Manganese/ Zinc 1 ml/Amino Acids/Dextrose 1,127.5455 ml @ 47 mls/hr Q24H IV 02/03/24 22:00 02/04/24 21:59 laboratory and microbiology Laboratory Tests 02/03/24 06:00 Test 02/03/24 06:00 Range/Units Serum Glucose 91 74-106 mg/dL Problem List/Assessment/Plan Problem List/Assessment/Plan 01/31/24 C/O PAIN, WOUND CLEAN AND WELL APPROXIMATED, DRAINAGE SEROUS, NO BM NO FLATUS, MUST AMBULATE 02/01/24 refusing to ambulate despite tyhorough explanation of significance, abdo,men non distended, appropriately tender, drainage sero sanguineous. 02/03/24 PASSING FLATUS, FEELS MUCH BETTERE, ABDOMEN SOFT, NON DISTENDED, MINIMALLY TENDER, WILL DC NGT AND START PO LIQUIDS Plan discussed with: Patient Dietary Evaluation Review Comments: 1) Increase TPN to meet at least 75% or estimated needs 2) Advance pt diet when medically feasible to a 2gm Sodium diet 3) Continue current plan of care Expected Outcomes/Goals: 1) Pt to receive adequate nutrition support 2) Pt diet to advance 3) F/U in 2-3 days REYNA SNOW MD Feb 03, 2024 08:53
--- NOTE | 2024-02-03 14:20 | DVHPN2 ---
Reviewed: Care Plan, H&P, Labs, Medications, Previous Orders, Radiology Changes from previous H/P or p: No Changes General: Per HPI Eyes: No Pain, No Vision change, No Conjunctivae inflammation, No Eyelid inflammation, No Other, No Redness ENT: No Ear pain, No Ear discharge, No Nose pain, No Nose discharge, No Nose congestion, No Mouth pain, No Mouth swelling, No Throat pain, No Throat swelling, No Other Cardiovascular: No Chest Pain, No Palpitations, No Orthopnea, No Paroxysmal Noc. Dyspnea, No Edema, No Lt Headedness, No Other Respiratory: No Cough, No Dry, No Shortness of breath, No SOB with excertion, No Wheezing, No Hemoptysis, No Pleuritic Pain, No Sputum, No Other Gastrointestinal: No Nausea, No Vomiting; Abdominal Pain; No Diarrhea, No Constipation, No Melena, No Hematochezia, No Other Genitourinary: No Dysuria, No Frequency, No Incontinence, No Hematuria, No Retention, No Other Musculoskeletal: No other, No neck pain, No shoulder pain, No arm pain, No back pain, No hand pain, No leg pain, No foot pain Skin: No Rash, No Lesions, No Jaundice, No Bruising, No Other Objective Vitals Vital Signs Date Time Temp Pulse Resp B/P (MAP) Pulse Ox O2 Delivery O2 Flow Rate FiO2 02/03/24 13:10 98.9 90 16 156/76 (102) 98 98.9 02/03/24 09:00 Room Air* 0 21 Intake/Output Intake and Output 02/03/24 07:00 Intake Total 982 ml Output Total 1035 ml Balance -53 ml Intake Oral 0 ml IV Total 982 ml Output Urine Total 925 ml Gastric Drainage Total 100 ml Drainage Total 10 ml General Appearance: Alert, Oriented X3, Cooperative, mild distress HEENT: Atraumatic, PERRLA, EOMI Neck: Supple Cardiovascular: Regular rate, Normal S1, Normal S2, No murmurs, Gallops, Rubs Abdomen: Normal bowel sounds, Soft, No tenderness, No hepatospenomegaly Psych/Mental Status: Mental status NL Medications Current Medications Medications Dose Ordered Sig/Sepideh Route Start Time Stop Time Status Last Admin Dose Admin Ceftriaxone Sodium 50 ml @ 100 mls/hr DAILY@09 IV 01/30/24 09:00 02/03/24 09:35 100 MLS/HR Metronidazole 100 ml @ 100 mls/hr Q8H IV 01/30/24 08:00 02/03/24 09:00 100 MLS/HR Pantoprazole Sodium 40 mg DAILY IV 01/30/24 10:00 02/03/24 09:00 40 MG Ondansetron HCl 4 mg Q4HP PRN IV 01/30/24 02:15 02/02/24 13:49 4 MG Acetaminophen 650 mg Q6HP PRN PO 01/30/24 02:15 Morphine Sulfate 2 mg Q4HPRN PRN IV 01/30/24 02:15 02/01/24 02:14 2 MG Hydralazine HCl 10 mg Q6HP PRN IV 01/30/24 02:15 02/02/24 15:56 10 MG Nitroglycerin 0.4 mg Q5MINP PRN SL 01/30/24 03:45 Morphine Sulfate 2 mg Q30M PRN IV 01/30/24 03:45 Diagnostic Test (Pha) 1 strip Q6HR 01/30/24 12:00 02/03/24 06:41 1 STRIP Insulin Human Regular FOLLOW SLIDING SCALE Q6HR SC 01/30/24 12:00 02/03/24 00:59 2 UNITS Dextrose 50 ml UD IV 01/30/24 11:45 Amino Acids 0 ml @ 0 mls/hr PER PHARMACY IV 01/30/24 11:45 Fat Emulsion Intravenous 50 ml/ Sodium Acetate 20 meq/Sodium Phosphate 20 meq/ Potassium Acetate 20 meq/Potassium Phosphate 22 meq/ Magnesium Sulfate 8 meq/ Multivitamins 10 ml/Chromium/ Copper/Manganese/ Zinc 1 ml/Amino Acids/Dextrose 893 ml @ 37 mls/hr Q24H9M IV 01/30/24 22:00 01/31/24 21:59 Cancel Sodium Chloride 10 ml QSHIFT@10,22 IV 01/30/24 22:00 02/02/24 22:28 10 ML Ketorolac Tromethamine 15 mg Q6HPRN PRN IV 02/01/24 15:00 02/06/24 14:59 02/02/24 21:16 15 MG Fat Emulsion Intravenous 100 ml/Sodium Phosphate 20 meq/ Potassium Chloride 40 meq/ Magnesium Sulfate 8 meq/ Multivitamins 10 ml/Chromium/ Copper/Manganese/ Zinc 1 ml/Amino Acids/Dextrose 1,038 ml @ 43 mls/hr Q24H9M IV 02/02/24 22:00 02/03/24 21:59 02/02/24 22:39 43 MLS/HR Fat Emulsion Intravenous 100 ml/Potassium Acetate 20 meq/ Potassium Phosphate 20 meq/ Magnesium Sulfate 8 meq/ Multivitamins 10 ml/Chromium/ Copper/Manganese/ Zinc 1 ml/Amino Acids/Dextrose 1,127.5455 ml @ 47 mls/hr Q24H IV 02/03/24 22:00 02/04/24 21:59 Laboratory Results Laboratory Tests 02/03/24 06:00 Chemistry Test 02/03/24 06:00 Albumin 3.5 g/dL (3.2-4.8) Calcium Level 8.8 mg/dL (8.7-10.4) Magnesium Level 2.0 mg/dL (1.6-2.6) Phosphorus Level 3.0 mg/dL (2.4-5.1) Total Protein 5.8 g/dL (5.7-8.2) LFT Test 02/03/24 06:00 Alanine Aminotransferase (ALT) 10 U/L (7-40) Alkaline Phosphatase 64 U/L (46-116) Aspartate Amino Transferase (AST) 14 U/L (13-40) Total Bilirubin 0.8 mg/dL (0.2-1.0) Urinalysis Test 01/29/24 23:10 Urine Color Straw (Yellow) Urine Clarity Clear (Clear) Urine pH 7.0 (5.0-9.0) Urine Specific [place] 1.012 (1.001-1.035) Urine Protein Negative (Negative) Urine Ketones Negative (Negative) Urine Blood Negative /uL (Negative) Urine Nitrite Negative (Negative) Urine Bilirubin Negative (Negative) Urine Urobilinogen Normal mg/dL (Negative) Urine Leukocyte Esterase Negative /uL (Negative) Urine RBC 2 /hpf (0 - 4) Urine WBC <1 /hpf (0 - 5) Urine Squamous Epithelial Cells None seen /hpf (<5) Urine Bacteria None seen /hpf (None Seen) Urine Glucose Normal mg/dL (Normal) Microbiology Microbiology Date/Time Source Procedure Growth Status 01/30/24 11:09 Peritoneal Fluid Gram Stain - Final Resulted 01/30/24 11:09 Peritoneal Fluid Anaerobic Culture - Preliminary Resulted 01/30/24 11:09 Aerobic Culture - Final Escherichia coli Resulted Labs and/or images reviewed: Labs reviewed by me, Image(s) reviewed by me Assessment/Plan Assessment/Plan Pneumoperitoneum Leukocytosis, unspecified Acute abdominal pain Generalized abdominal pain Diverticulitis of intestine with perforation status post surgery Diverticulitis of large intestine with perforation and abscess without bleeding 02/01/2024: encourage PT. consult PT/OT. Toradol for SHERMAN. no bowel movement yet discussed with daughter at bedside 02/02/2024: continue with current tx. Still on NG tube. advance diet per Gen Surg. daughter asking if pt can ambulate. Pt still has NG tube with suction in place 02/03/2024: NG tube removed. pt tolerates PO. encourage ambulation. Plan discussed with: Patient Date of Service: Feb 03, 2024 Billing Provider: THOMAS VILLALOBOS DO Common Visit Codes: [id number] INP/OBS CARE(HIGH) THOMAS VILLALOBOS DO Feb 03, 2024 14:20
--- NOTE | 2024-02-03 21:28 | DVHPN2 ---
Progress Note - Dictate Date Seen: Feb 03, 2024 Medical Necessity Reason Pt with a Central, PICC or Fol: No Subjective Patient was seen and evaluated in follow up. No acute events overnight. Patient denies any complaints. Tolerating diet. Na 142. NG tube removed. vital signs Vital Sign Date Time Temp Pulse Resp B/P (MAP) Pulse Ox O2 Delivery O2 Flow Rate FiO2 02/03/24 17:19 96.5 96 16 183/86 (118) 97 96.5 02/03/24 09:00 Room Air* 0 21 Total Intake and Output 02/02/24 02/02/24 02/03/24 15:00 23:00 07:00 Intake Total 250 ml 632 ml 100 ml Output Total 760 ml 275 ml Balance 250 ml -128 ml -175 ml medications Current Medications Medications Dose Ordered Sig/Sepideh Route Start Time Stop Time Status Last Admin Dose Admin Ceftriaxone Sodium 50 ml @ 100 mls/hr DAILY@09 IV 01/30/24 09:00 02/03/24 09:35 100 MLS/HR Metronidazole 100 ml @ 100 mls/hr Q8H IV 01/30/24 08:00 02/03/24 16:34 100 MLS/HR Pantoprazole Sodium 40 mg DAILY IV 01/30/24 10:00 02/03/24 09:00 40 MG Ondansetron HCl 4 mg Q4HP PRN IV 01/30/24 02:15 02/02/24 13:49 4 MG Acetaminophen 650 mg Q6HP PRN PO 01/30/24 02:15 Morphine Sulfate 2 mg Q4HPRN PRN IV 01/30/24 02:15 02/01/24 02:14 2 MG Hydralazine HCl 10 mg Q6HP PRN IV 01/30/24 02:15 02/03/24 16:42 10 MG Nitroglycerin 0.4 mg Q5MINP PRN SL 01/30/24 03:45 Morphine Sulfate 2 mg Q30M PRN IV 01/30/24 03:45 Diagnostic Test (Pha) 1 strip Q6HR 01/30/24 12:00 02/03/24 06:41 1 STRIP Insulin Human Regular FOLLOW SLIDING SCALE Q6HR SC 01/30/24 12:00 02/03/24 00:59 2 UNITS Dextrose 50 ml UD IV 01/30/24 11:45 Amino Acids 0 ml @ 0 mls/hr PER PHARMACY IV 01/30/24 11:45 Fat Emulsion Intravenous 50 ml/ Sodium Acetate 20 meq/Sodium Phosphate 20 meq/ Potassium Acetate 20 meq/Potassium Phosphate 22 meq/ Magnesium Sulfate 8 meq/ Multivitamins 10 ml/Chromium/ Copper/Manganese/ Zinc 1 ml/Amino Acids/Dextrose 893 ml @ 37 mls/hr Q24H9M IV 01/30/24 22:00 01/31/24 21:59 Cancel Sodium Chloride 10 ml QSHIFT@,22 IV 01/30/24 22:00 02/03/24 10:00 10 ML Ketorolac Tromethamine 15 mg Q6HPRN PRN IV 02/01/24 15:00 02/06/24 14:59 02/02/24 21:16 15 MG Fat Emulsion Intravenous 100 ml/Sodium Phosphate 20 meq/ Potassium Chloride 40 meq/ Magnesium Sulfate 8 meq/ Multivitamins 10 ml/Chromium/ Copper/Manganese/ Zinc 1 ml/Amino Acids/Dextrose 1,038 ml @ 43 mls/hr Q24H9M IV 02/02/24 22:00 02/03/24 21:59 02/02/24 22:39 43 MLS/HR Fat Emulsion Intravenous 100 ml/Potassium Acetate 20 meq/ Potassium Phosphate 20 meq/ Magnesium Sulfate 8 meq/ Multivitamins 10 ml/Chromium/ Copper/Manganese/ Zinc 1 ml/Amino Acids/Dextrose 1,127.5455 ml @ 47 mls/hr Q24H IV 02/03/24 22:00 02/04/24 21:59 objective Physical Exam General Appearance: Cooperative, No acute distress HEENT: Atraumatic, PERRLA, EOMI, Mucous membr. moist/pink Respiratory: Clear to auscultation, Normal air movement Cardiovascular: Regular rate, Normal S1, Normal S2, No murmurs Abdominal: Normal bowel sounds, Soft, No hepatospenomegaly, No masses Extremities: No clubbing, No cyanosis, No edema, Normal pulses, No tenderness/swelling Skin: No rashes, No breakdown, No significant lesion Neuro: Normal gait, Normal speech, Strength at 5/5 X4 ext, Normal tone, Sensation intact, Cranial nerves 3-12 NL, Reflexes 2+ Psych/Mental Status: Alert, Oriented X3, Mental status NL, Mood NL laboratory and microbiology Laboratory Tests 02/03/24 06:00 Test 02/03/24 06:00 Range/Units Serum Glucose 91 74-106 mg/dL Problem List 1) Hyponatremia (2) Diverticulitis of large intestine with perforation and abscess without bleeding (3) Abdominal pain Assessment/Plan Agree with current supportive medical care. PT as tolerated. Daily lab monitoring; electrolyte replacement prn. IV or oral hydration. IV Ceftriaxone and Metronidazole. Pain management prn. Bowel care regimen. Started on clear liquid diet. Additional plan as per the hospital course. Dietary Evaluation Review Comments: 1) Increase TPN to meet at least 75% or estimated needs 2) Advance pt diet when medically feasible to a 2gm Sodium diet 3) Continue current plan of care Expected Outcomes/Goals: 1) Pt to receive adequate nutrition support 2) Pt diet to advance 3) F/U in 2-3 days Plan discussed with: Patient, Other (RN) JOHAN SANCHES DO Feb 03, 2024 21:28
[2024-02-03] MEDS: TPN PER PHARMACY IV NR (22:47)
[2024-02-04] VITALS (8 sets, daily range): BP systolic 138–176; BP diastolic 60–77; PULSE 83–103; RESP 17–20; TEMP 97.3–99.1; O2SAT 97–98
[2024-02-04] MEDS: ACETAMINOPHEN 325 MG TAB PO PRN (04:58)
[2024-02-04 05:31] LABS: Basophils # (auto) 0 10 ^3/uL (0-0.2); Basophils % (auto) 0.3 % (0.0-2.0); Eosinophils # (auto) 0.3 10 ^3/uL (0-0.8); Eosinophils % (auto) 3.9 % (0.0-7.0); Hemoglobin 12.4 g/dL (12.2-16.2); Lymphocytes # (auto) 1.2 10 ^3/uL (0.4-5.4); Lymphocytes % (auto) 15.5 % (10.0-50.0); Mean Corpuscular Hemoglobin 29.3 pg (28.0-32.0); Mean Corpuscular Hgb Conc. 33.4 g/dL (32.0-36.0); Mean Corpuscular Volume 87.7 fL (80.0-100.0); Monocytes # (auto) 0.5 10 ^3/uL (0-1.3); Monocytes % (auto) 6.6 % (0.0-12.0); Neutrophils # (auto) 5.6 10 ^3/uL (1.6-8.6); Neutrophils % (auto) 73.7 % (37.0-80.0); Nucleated Red Blood Cells % 0.1 %; Platelet Count (auto) 277 10^3/uL (140-450); Red Blood Cells 4.22 10^6/uL (4.0-5.20); Red Cell Distribution Width 13.9 % (11.8-14.3); White Blood Cell 7.6 10^3/uL (4.4-10.8)
[2024-02-04 05:50] LABS: Alanine Aminotransferase 27 U/L (7-40); Albumin 3.3 g/dL (3.2-4.8); Alkaline Phosphatase 71 U/L (46-116); Anion Gap 8 (5-15); Aspartate Aminotransferase 45 U/L (13-40); BUN/Creatinine Ratio 29.7 (10.0-20.0); Blood Urea Nitrogen 19 mg/dL (9-23); Calcium 8.7 mg/dL (8.7-10.4); Carbon Dioxide 26 mmol/L (20-31); Chloride 107 mmol/L (98-107); Glucose 124 mg/dL (74-106); Magnesium 1.9 mg/dL (1.6-2.6); Potassium 3.8 mmol/L (3.5-5.1); Sodium 141 mmol/L (136-145)
[2024-02-04 05:51] LABS: Bilirubin, Total 0.9 mg/dL (0.2-1.0); Phosphorus 2.7 mg/dL (2.4-5.1); Total Protein 5.8 g/dL (5.7-8.2)
--- NOTE | 2024-02-04 11:02 | DVHPN2 ---
Progress Note Date Seen: Feb 04, 2024 Medical Necessity Reason Pt with a Central, PICC or Fol: No Objective vital signs Vital Sign Date Time Temp Pulse Resp B/P (MAP) Pulse Ox O2 Delivery O2 Flow Rate FiO2 02/04/24 09:00 97.3 83 19 142/76 (98) 97 97.3 02/03/24 20:00 Room Air* 0 21 Total Intake and Output 02/03/24 02/03/24 02/04/24 15:00 23:00 07:00 Intake Total 150 ml 616 ml 300 ml Output Total 503 ml 460 ml 300 ml Balance -353 ml 156 ml 0 ml medications Current Medications Medications Dose Ordered Sig/Sepideh Route Start Time Stop Time Status Last Admin Dose Admin Ceftriaxone Sodium 50 ml @ 100 mls/hr DAILY@09 IV 01/30/24 09:00 02/04/24 09:44 100 MLS/HR Metronidazole 100 ml @ 100 mls/hr Q8H IV 01/30/24 08:00 02/04/24 09:45 100 MLS/HR Pantoprazole Sodium 40 mg DAILY IV 01/30/24 10:00 02/04/24 09:44 40 MG Ondansetron HCl 4 mg Q4HP PRN IV 01/30/24 02:15 02/02/24 13:49 4 MG Acetaminophen 650 mg Q6HP PRN PO 01/30/24 02:15 02/04/24 04:58 650 MG Morphine Sulfate 2 mg Q4HPRN PRN IV 01/30/24 02:15 02/01/24 02:14 2 MG Hydralazine HCl 10 mg Q6HP PRN IV 01/30/24 02:15 02/03/24 16:42 10 MG Nitroglycerin 0.4 mg Q5MINP PRN SL 01/30/24 03:45 Morphine Sulfate 2 mg Q30M PRN IV 01/30/24 03:45 Diagnostic Test (Pha) 1 strip Q6HR 01/30/24 12:00 02/04/24 06:00 1 STRIP Insulin Human Regular FOLLOW SLIDING SCALE Q6HR SC 01/30/24 12:00 02/03/24 00:59 2 UNITS Dextrose 50 ml UD IV 01/30/24 11:45 Amino Acids 0 ml @ 0 mls/hr PER PHARMACY IV 01/30/24 11:45 Fat Emulsion Intravenous 50 ml/ Sodium Acetate 20 meq/Sodium Phosphate 20 meq/ Potassium Acetate 20 meq/Potassium Phosphate 22 meq/ Magnesium Sulfate 8 meq/ Multivitamins 10 ml/Chromium/ Copper/Manganese/ Zinc 1 ml/Amino Acids/Dextrose 893 ml @ 37 mls/hr Q24H9M IV 01/30/24 22:00 01/31/24 21:59 Cancel Sodium Chloride 10 ml QSHIFT@10,22 IV 01/30/24 22:00 02/04/24 09:45 10 ML Ketorolac Tromethamine 15 mg Q6HPRN PRN IV 02/01/24 15:00 02/06/24 14:59 02/02/24 21:16 15 MG Fat Emulsion Intravenous 100 ml/Potassium Acetate 20 meq/ Potassium Phosphate 20 meq/ Magnesium Sulfate 8 meq/ Multivitamins 10 ml/Chromium/ Copper/Manganese/ Zinc 1 ml/Amino Acids/Dextrose 1,127.5455 ml @ 47 mls/hr Q24H IV 02/03/24 22:00 02/04/24 21:59 02/03/24 22:47 47 MLS/HR laboratory and microbiology Laboratory Tests 02/04/24 05:11 Test 02/04/24 05:11 Range/Units Serum Glucose 124 H 74-106 mg/dL Problem List/Assessment/Plan Problem List/Assessment/Plan 01/31/24 C/O PAIN, WOUND CLEAN AND WELL APPROXIMATED, DRAINAGE SEROUS, NO BM NO FLATUS, MUST AMBULATE 02/01/24 refusing to ambulate despite tyhorough explanation of significance, abdo,men non distended, appropriately tender, drainage sero sanguineous. 02/03/24 PASSING FLATUS, FEELS MUCH BETTERE, ABDOMEN SOFT, NON DISTENDED, MINIMALLY TENDER, WILL DC NGT AND START PO LIQUIDS 02/04/24 passing flatus, has not ambulated, will dc [place], must ambulate!! Plan discussed with: Patient, Daughter Dietary Evaluation Review Comments: 1) Increase TPN to meet at least 75% or estimated needs 2) Advance pt diet when medically feasible to a 2gm Sodium diet 3) Continue current plan of care Expected Outcomes/Goals: 1) Pt to receive adequate nutrition support 2) Pt diet to advance 3) F/U in 2-3 days REYNA SNOW MD Feb 04, 2024 11:02
--- NOTE | 2024-02-04 19:37 | DVHPN2 ---
Progress Note - Dictate Date Seen: Feb 04, 2024 Medical Necessity Reason Pt with a Central, PICC or Fol: No Subjective Patient was seen and evaluated in follow up. No acute events overnight. Patient denies any abdominal pain. Passing flatus. Patient has not ambulated yet. vital signs Vital Sign Date Time Temp Pulse Resp B/P (MAP) Pulse Ox O2 Delivery O2 Flow Rate FiO2 02/04/24 17:00 98.6 103 19 159/68 (98) 97 98.6 02/04/24 08:00 Room Air* 0 21 Total Intake and Output 02/03/24 02/03/24 02/04/24 15:00 23:00 07:00 Intake Total 150 ml 616 ml 300 ml Output Total 503 ml 460 ml 300 ml Balance -353 ml 156 ml 0 ml medications Current Medications Medications Dose Ordered Sig/Sepideh Route Start Time Stop Time Status Last Admin Dose Admin Ceftriaxone Sodium 50 ml @ 100 mls/hr DAILY@09 IV 01/30/24 09:00 02/04/24 09:44 100 MLS/HR Metronidazole 100 ml @ 100 mls/hr Q8H IV 01/30/24 08:00 02/04/24 17:47 100 MLS/HR Pantoprazole Sodium 40 mg DAILY IV 01/30/24 10:00 02/04/24 09:44 40 MG Ondansetron HCl 4 mg Q4HP PRN IV 01/30/24 02:15 02/02/24 13:49 4 MG Acetaminophen 650 mg Q6HP PRN PO 01/30/24 02:15 02/04/24 04:58 650 MG Morphine Sulfate 2 mg Q4HPRN PRN IV 01/30/24 02:15 02/01/24 02:14 2 MG Hydralazine HCl 10 mg Q6HP PRN IV 01/30/24 02:15 02/04/24 13:18 10 MG Nitroglycerin 0.4 mg Q5MINP PRN SL 01/30/24 03:45 Morphine Sulfate 2 mg Q30M PRN IV 01/30/24 03:45 Diagnostic Test (Pha) 1 strip Q6HR 01/30/24 12:00 02/04/24 18:04 1 STRIP Insulin Human Regular FOLLOW SLIDING SCALE Q6HR SC 01/30/24 12:00 02/04/24 13:22 2 UNITS Dextrose 50 ml UD IV 01/30/24 11:45 Amino Acids 0 ml @ 0 mls/hr PER PHARMACY IV 01/30/24 11:45 Fat Emulsion Intravenous 50 ml/ Sodium Acetate 20 meq/Sodium Phosphate 20 meq/ Potassium Acetate 20 meq/Potassium Phosphate 22 meq/ Magnesium Sulfate 8 meq/ Multivitamins 10 ml/Chromium/ Copper/Manganese/ Zinc 1 ml/Amino Acids/Dextrose 893 ml @ 37 mls/hr Q24H9M IV 01/30/24 22:00 01/31/24 21:59 Cancel Sodium Chloride 10 ml QSHIFT@10,22 IV 01/30/24 22:00 02/04/24 09:45 10 ML Ketorolac Tromethamine 15 mg Q6HPRN PRN IV 02/01/24 15:00 02/06/24 14:59 02/02/24 21:16 15 MG Fat Emulsion Intravenous 100 ml/Potassium Acetate 20 meq/ Potassium Phosphate 20 meq/ Magnesium Sulfate 8 meq/ Multivitamins 10 ml/Chromium/ Copper/Manganese/ Zinc 1 ml/Amino Acids/Dextrose 1,127.5455 ml @ 47 mls/hr Q24H IV 02/03/24 22:00 02/04/24 21:59 02/03/24 22:47 47 MLS/HR Fat Emulsion Intravenous 150 ml/Sodium Phosphate 40 meq/ Potassium Phosphate 44 meq/ Magnesium Sulfate 12 meq/ Multivitamins 10 ml/Chromium/ Copper/Manganese/ Zinc 1 ml/Amino Acids/Dextrose 1,234 ml @ 51 mls/hr [id number] IV 02/04/24 22:00 02/05/24 21:59 objective Physical Exam General Appearance: Cooperative, No acute distress HEENT: Atraumatic, PERRLA, EOMI, Mucous membr. moist/pink Respiratory: Clear to auscultation, Normal air movement Cardiovascular: Regular rate, Normal S1, Normal S2, No murmurs Abdominal: Normal bowel sounds, Soft, No hepatospenomegaly, No masses Extremities: No clubbing, No cyanosis, No edema, Normal pulses, No tenderness/swelling Skin: No rashes, No breakdown, No significant lesion Neuro: Normal gait, Normal speech, Strength at 5/5 X4 ext, Normal tone, Sensation intact, Cranial nerves 3-12 NL, Reflexes 2+ Psych/Mental Status: Alert, Oriented X3, Mental status NL, Mood NL laboratory and microbiology Laboratory Tests 02/04/24 05:11 Test 02/04/24 05:11 Range/Units Serum Glucose 124 H 74-106 mg/dL Problem List 1) Hyponatremia (2) Diverticulitis of large intestine with perforation and abscess without bleeding (3) Abdominal pain Assessment/Plan Agree with current supportive medical care. PT as recommended. Daily lab monitoring; electrolyte replacement prn. IV or oral hydration. IV Ceftriaxone and Metronidazole. Pain management prn. Bowel care regimen. Clear liquid diet. Nutritional support with TPN. Wallace discontinued. Additional plan as per the hospital course. Dietary Evaluation Review Comments: 1) Increase TPN to meet at least 75% or estimated needs 2) Advance pt diet when medically feasible to a 2gm Sodium diet 3) Continue current plan of care Expected Outcomes/Goals: 1) Pt to receive adequate nutrition support 2) Pt diet to advance 3) F/U in 2-3 days Plan discussed with: Patient, Other (RN) JOHAN SANCHES DO Feb 04, 2024 19:37
[2024-02-04] MEDS: TPN PER PHARMACY IV NR (21:54)
[2024-02-05] VITALS (8 sets, daily range): BP systolic 139–160; BP diastolic 59–74; PULSE 18–97; RESP 17–99; TEMP 97.8–99; O2SAT 96–99
[2024-02-05 06:21] LABS: Basophils # (auto) 0 10 ^3/uL (0-0.2); Basophils % (auto) 0.4 % (0.0-2.0); Eosinophils # (auto) 0.4 10 ^3/uL (0-0.8); Eosinophils % (auto) 5.1 % (0.0-7.0); Hemoglobin 11.7 g/dL (12.2-16.2); Lymphocytes % (auto) 13.2 % (10.0-50.0); Mean Corpuscular Hemoglobin 30.4 pg (28.0-32.0); Mean Corpuscular Hgb Conc. 34.6 g/dL (32.0-36.0); Mean Corpuscular Volume 88.1 fL (80.0-100.0); Monocytes # (auto) 0.6 10 ^3/uL (0-1.3); Monocytes % (auto) 8.1 % (0.0-12.0); Neutrophils # (auto) 5.7 10 ^3/uL (1.6-8.6); Neutrophils % (auto) 73.2 % (37.0-80.0); Platelet Count (auto) 254 10^3/uL (140-450); Red Blood Cells 3.86 10^6/uL (4.0-5.20); Red Cell Distribution Width 13.8 % (11.8-14.3); White Blood Cell 7.7 10^3/uL (4.4-10.8)
[2024-02-05 06:47] LABS: Alanine Aminotransferase 54 U/L (7-40); Albumin 3.2 g/dL (3.2-4.8); Alkaline Phosphatase 80 U/L (46-116); Anion Gap 7 (5-15); Aspartate Aminotransferase 79 U/L (13-40); BUN/Creatinine Ratio 21.1 (10.0-20.0); Blood Urea Nitrogen 12 mg/dL (9-23); Calcium 8.5 mg/dL (8.7-10.4); Carbon Dioxide 26 mmol/L (20-31); Chloride 106 mmol/L (98-107); Glucose 134 mg/dL (74-106); Phosphorus 3.9 mg/dL (2.4-5.1); Potassium 3.7 mmol/L (3.5-5.1); Sodium 139 mmol/L (136-145)
[2024-02-05 06:48] LABS: Bilirubin, Total 0.6 mg/dL (0.2-1.0); Total Protein 5.5 g/dL (5.7-8.2)
--- NOTE | 2024-02-05 13:25 | DVHPN2 ---
Reviewed: Care Plan, H&P, Labs, Medications, Previous Orders, Radiology Changes from previous H/P or p: No Changes General: Per HPI Eyes: No Pain, No Vision change, No Conjunctivae inflammation, No Eyelid inflammation, No Other, No Redness ENT: No Ear pain, No Ear discharge, No Nose pain, No Nose discharge, No Nose congestion, No Mouth pain, No Mouth swelling, No Throat pain, No Throat swelling, No Other Cardiovascular: No Chest Pain, No Palpitations, No Orthopnea, No Paroxysmal Noc. Dyspnea, No Edema, No Lt Headedness, No Other Respiratory: No Cough, No Dry, No Shortness of breath, No SOB with excertion, No Wheezing, No Hemoptysis, No Pleuritic Pain, No Sputum, No Other Gastrointestinal: No Nausea, No Vomiting; Abdominal Pain; No Diarrhea, No Constipation, No Melena, No Hematochezia, No Other Genitourinary: No Dysuria, No Frequency, No Incontinence, No Hematuria, No Retention, No Other Musculoskeletal: No other, No neck pain, No shoulder pain, No arm pain, No back pain, No hand pain, No leg pain, No foot pain Skin: No Rash, No Lesions, No Jaundice, No Bruising, No Other Objective Vitals Vital Signs Date Time Temp Pulse Resp B/P (MAP) Pulse Ox O2 Delivery O2 Flow Rate FiO2 02/05/24 13:20 98.1 89 19 149/74 (99) 97 98.1 02/05/24 08:00 Room Air* 0 21 Intake/Output Intake and Output 02/05/24 07:00 Intake Total 1939 ml Balance 1939 ml Intake Oral 1025 ml IV Total 914 ml # Voids 1 General Appearance: Alert, Oriented X3, Cooperative, mild distress HEENT: Atraumatic, PERRLA, EOMI Neck: Supple Cardiovascular: Regular rate, Normal S1, Normal S2, No murmurs, Gallops, Rubs Abdomen: Normal bowel sounds, Soft, No tenderness, No hepatospenomegaly Psych/Mental Status: Mental status NL Medications Current Medications Medications Dose Ordered Sig/Sepideh Route Start Time Stop Time Status Last Admin Dose Admin Ceftriaxone Sodium 50 ml @ 100 mls/hr DAILY@09 IV 01/30/24 09:00 02/05/24 09:00 100 MLS/HR Metronidazole 100 ml @ 100 mls/hr Q8H IV 01/30/24 08:00 02/05/24 08:00 100 MLS/HR Pantoprazole Sodium 40 mg DAILY IV 01/30/24 10:00 02/05/24 10:00 40 MG Ondansetron HCl 4 mg Q4HP PRN IV 01/30/24 02:15 02/02/24 13:49 4 MG Acetaminophen 650 mg Q6HP PRN PO 01/30/24 02:15 02/05/24 01:20 650 MG Morphine Sulfate 2 mg Q4HPRN PRN IV 01/30/24 02:15 02/01/24 02:14 2 MG Hydralazine HCl 10 mg Q6HP PRN IV 01/30/24 02:15 02/05/24 05:53 10 MG Nitroglycerin 0.4 mg Q5MINP PRN SL 01/30/24 03:45 Morphine Sulfate 2 mg Q30M PRN IV 01/30/24 03:45 Diagnostic Test (Pha) 1 strip Q6HR 01/30/24 12:00 02/05/24 12:08 1 STRIP Insulin Human Regular FOLLOW SLIDING SCALE Q6HR SC 01/30/24 12:00 02/05/24 12:23 4 UNITS Dextrose 50 ml UD IV 01/30/24 11:45 Amino Acids 0 ml @ 0 mls/hr PER PHARMACY IV 01/30/24 11:45 Fat Emulsion Intravenous 50 ml/ Sodium Acetate 20 meq/Sodium Phosphate 20 meq/ Potassium Acetate 20 meq/Potassium Phosphate 22 meq/ Magnesium Sulfate 8 meq/ Multivitamins 10 ml/Chromium/ Copper/Manganese/ Zinc 1 ml/Amino Acids/Dextrose 893 ml @ 37 mls/hr Q24H9M IV 01/30/24 22:00 01/31/24 21:59 Cancel Sodium Chloride 10 ml QSHIFT@10,22 IV 01/30/24 22:00 02/05/24 10:00 10 ML Ketorolac Tromethamine 15 mg Q6HPRN PRN IV 02/01/24 15:00 02/06/24 14:59 02/02/24 21:16 15 MG Fat Emulsion Intravenous 150 ml/Sodium Phosphate 40 meq/ Potassium Phosphate 44 meq/ Magnesium Sulfate 12 meq/ Multivitamins 10 ml/Chromium/ Copper/Manganese/ Zinc 1 ml/Amino Acids/Dextrose 1,234 ml @ 51 mls/hr [id number] IV 02/04/24 22:00 02/05/24 21:59 02/04/24 21:54 51 MLS/HR Fat Emulsion Intravenous 150 ml/Sodium Acetate 20 meq/Potassium Acetate 20 meq/ Potassium Phosphate 22 meq/ Calcium Gluconate 2.3 meq/Magnesium Sulfate 14 meq/ Multivitamins 10 ml/Chromium/ Copper/Manganese/ Zinc 1 ml/Amino Acids/Dextrose 1,294.4462 ml @ 54 mls/hr [id number] IV 02/05/24 22:00 02/06/24 21:59 Laboratory Results Laboratory Tests 02/05/24 05:49 Chemistry Test 02/05/24 05:49 Albumin 3.2 g/dL (3.2-4.8) Calcium Level 8.5 mg/dL (8.7-10.4) L Magnesium Level 2.0 mg/dL (1.6-2.6) Phosphorus Level 3.9 mg/dL (2.4-5.1) Total Protein 5.5 g/dL (5.7-8.2) L LFT Test 02/05/24 05:49 Alanine Aminotransferase (ALT) 54 U/L (7-40) H Alkaline Phosphatase 80 U/L (46-116) Aspartate Amino Transferase (AST) 79 U/L (13-40) H Total Bilirubin 0.6 mg/dL (0.2-1.0) Urinalysis Test 01/29/24 23:10 Urine Color Straw (Yellow) Urine Clarity Clear (Clear) Urine pH 7.0 (5.0-9.0) Urine Specific [place] 1.012 (1.001-1.035) Urine Protein Negative (Negative) Urine Ketones Negative (Negative) Urine Blood Negative /uL (Negative) Urine Nitrite Negative (Negative) Urine Bilirubin Negative (Negative) Urine Urobilinogen Normal mg/dL (Negative) Urine Leukocyte Esterase Negative /uL (Negative) Urine RBC 2 /hpf (0 - 4) Urine WBC <1 /hpf (0 - 5) Urine Squamous Epithelial Cells None seen /hpf (<5) Urine Bacteria None seen /hpf (None Seen) Urine Glucose Normal mg/dL (Normal) Microbiology Microbiology Date/Time Source Procedure Growth Status 01/30/24 11:09 Peritoneal Fluid Gram Stain - Final Resulted 01/30/24 11:09 Peritoneal Fluid Anaerobic Culture - Preliminary Resulted 01/30/24 11:09 Aerobic Culture - Final Escherichia coli Resulted Assessment/Plan Assessment/Plan Pneumoperitoneum Leukocytosis, unspecified Acute abdominal pain Generalized abdominal pain Diverticulitis of intestine with perforation status post surgery Diverticulitis of large intestine with perforation and abscess without bleeding 02/01/2024: encourage PT. consult PT/OT. Toradol for SHERMAN. no bowel movement yet discussed with daughter at bedside 02/02/2024: continue with current tx. Still on NG tube. advance diet per Gen Surg. daughter asking if pt can ambulate. Pt still has NG tube with suction in place 02/03/2024: NG tube removed. pt tolerates PO. encourage ambulation. 02/04/2024: advance diet per Gen Surg. started on clear liquid. Encourage mobility Plan discussed with: Patient Date of Service: Feb 04, 2024 Billing Provider: THOMAS VILLALOBOS DO Common Visit Codes: [id number] INP/OBS CARE(HIGH) THOMAS VILLALOBOS DO Feb 05, 2024 13:25
--- NOTE | 2024-02-05 13:26 | DVHPN2 ---
Reviewed: Care Plan, H&P, Labs, Medications, Previous Orders, Radiology Changes from previous H/P or p: No Changes General: Per HPI Eyes: No Pain, No Vision change, No Conjunctivae inflammation, No Eyelid inflammation, No Other, No Redness ENT: No Ear pain, No Ear discharge, No Nose pain, No Nose discharge, No Nose congestion, No Mouth pain, No Mouth swelling, No Throat pain, No Throat swelling, No Other Cardiovascular: No Chest Pain, No Palpitations, No Orthopnea, No Paroxysmal Noc. Dyspnea, No Edema, No Lt Headedness, No Other Respiratory: No Cough, No Dry, No Shortness of breath, No SOB with excertion, No Wheezing, No Hemoptysis, No Pleuritic Pain, No Sputum, No Other Gastrointestinal: No Nausea, No Vomiting; Abdominal Pain; No Diarrhea, No Constipation, No Melena, No Hematochezia, No Other Genitourinary: No Dysuria, No Frequency, No Incontinence, No Hematuria, No Retention, No Other Musculoskeletal: No other, No neck pain, No shoulder pain, No arm pain, No back pain, No hand pain, No leg pain, No foot pain Skin: No Rash, No Lesions, No Jaundice, No Bruising, No Other Objective Vitals Vital Signs Date Time Temp Pulse Resp B/P (MAP) Pulse Ox O2 Delivery O2 Flow Rate FiO2 02/05/24 13:20 98.1 89 19 149/74 (99) 97 98.1 02/05/24 08:00 Room Air* 0 21 Intake/Output Intake and Output 02/05/24 07:00 Intake Total 1939 ml Balance 1939 ml Intake Oral 1025 ml IV Total 914 ml # Voids 1 General Appearance: Alert, Oriented X3, Cooperative, mild distress HEENT: Atraumatic, PERRLA, EOMI Neck: Supple Cardiovascular: Regular rate, Normal S1, Normal S2, No murmurs, Gallops, Rubs Abdomen: Normal bowel sounds, Soft, No tenderness, No hepatospenomegaly Psych/Mental Status: Mental status NL Medications Current Medications Medications Dose Ordered Sig/Sepideh Route Start Time Stop Time Status Last Admin Dose Admin Ceftriaxone Sodium 50 ml @ 100 mls/hr DAILY@09 IV 01/30/24 09:00 02/05/24 09:00 100 MLS/HR Metronidazole 100 ml @ 100 mls/hr Q8H IV 01/30/24 08:00 02/05/24 08:00 100 MLS/HR Pantoprazole Sodium 40 mg DAILY IV 01/30/24 10:00 02/05/24 10:00 40 MG Ondansetron HCl 4 mg Q4HP PRN IV 01/30/24 02:15 02/02/24 13:49 4 MG Acetaminophen 650 mg Q6HP PRN PO 01/30/24 02:15 02/05/24 01:20 650 MG Morphine Sulfate 2 mg Q4HPRN PRN IV 01/30/24 02:15 02/01/24 02:14 2 MG Hydralazine HCl 10 mg Q6HP PRN IV 01/30/24 02:15 02/05/24 05:53 10 MG Nitroglycerin 0.4 mg Q5MINP PRN SL 01/30/24 03:45 Morphine Sulfate 2 mg Q30M PRN IV 01/30/24 03:45 Diagnostic Test (Pha) 1 strip Q6HR 01/30/24 12:00 02/05/24 12:08 1 STRIP Insulin Human Regular FOLLOW SLIDING SCALE Q6HR SC 01/30/24 12:00 02/05/24 12:23 4 UNITS Dextrose 50 ml UD IV 01/30/24 11:45 Amino Acids 0 ml @ 0 mls/hr PER PHARMACY IV 01/30/24 11:45 Fat Emulsion Intravenous 50 ml/ Sodium Acetate 20 meq/Sodium Phosphate 20 meq/ Potassium Acetate 20 meq/Potassium Phosphate 22 meq/ Magnesium Sulfate 8 meq/ Multivitamins 10 ml/Chromium/ Copper/Manganese/ Zinc 1 ml/Amino Acids/Dextrose 893 ml @ 37 mls/hr Q24H9M IV 01/30/24 22:00 01/31/24 21:59 Cancel Sodium Chloride 10 ml QSHIFT@10,22 IV 01/30/24 22:00 02/05/24 10:00 10 ML Ketorolac Tromethamine 15 mg Q6HPRN PRN IV 02/01/24 15:00 02/06/24 14:59 02/02/24 21:16 15 MG Fat Emulsion Intravenous 150 ml/Sodium Phosphate 40 meq/ Potassium Phosphate 44 meq/ Magnesium Sulfate 12 meq/ Multivitamins 10 ml/Chromium/ Copper/Manganese/ Zinc 1 ml/Amino Acids/Dextrose 1,234 ml @ 51 mls/hr [id number] IV 02/04/24 22:00 02/05/24 21:59 02/04/24 21:54 51 MLS/HR Fat Emulsion Intravenous 150 ml/Sodium Acetate 20 meq/Potassium Acetate 20 meq/ Potassium Phosphate 22 meq/ Calcium Gluconate 2.3 meq/Magnesium Sulfate 14 meq/ Multivitamins 10 ml/Chromium/ Copper/Manganese/ Zinc 1 ml/Amino Acids/Dextrose 1,294.4462 ml @ 54 mls/hr [id number] IV 02/05/24 22:00 02/06/24 21:59 Laboratory Results Laboratory Tests 02/05/24 05:49 Chemistry Test 02/05/24 05:49 Albumin 3.2 g/dL (3.2-4.8) Calcium Level 8.5 mg/dL (8.7-10.4) L Magnesium Level 2.0 mg/dL (1.6-2.6) Phosphorus Level 3.9 mg/dL (2.4-5.1) Total Protein 5.5 g/dL (5.7-8.2) L LFT Test 02/05/24 05:49 Alanine Aminotransferase (ALT) 54 U/L (7-40) H Alkaline Phosphatase 80 U/L (46-116) Aspartate Amino Transferase (AST) 79 U/L (13-40) H Total Bilirubin 0.6 mg/dL (0.2-1.0) Urinalysis Test 01/29/24 23:10 Urine Color Straw (Yellow) Urine Clarity Clear (Clear) Urine pH 7.0 (5.0-9.0) Urine Specific [place] 1.012 (1.001-1.035) Urine Protein Negative (Negative) Urine Ketones Negative (Negative) Urine Blood Negative /uL (Negative) Urine Nitrite Negative (Negative) Urine Bilirubin Negative (Negative) Urine Urobilinogen Normal mg/dL (Negative) Urine Leukocyte Esterase Negative /uL (Negative) Urine RBC 2 /hpf (0 - 4) Urine WBC <1 /hpf (0 - 5) Urine Squamous Epithelial Cells None seen /hpf (<5) Urine Bacteria None seen /hpf (None Seen) Urine Glucose Normal mg/dL (Normal) Microbiology Microbiology Date/Time Source Procedure Growth Status 01/30/24 11:09 Peritoneal Fluid Gram Stain - Final Resulted 01/30/24 11:09 Peritoneal Fluid Anaerobic Culture - Preliminary Resulted 01/30/24 11:09 Aerobic Culture - Final Escherichia coli Resulted Labs and/or images reviewed: Labs reviewed by me, Image(s) reviewed by me Assessment/Plan Assessment/Plan Pneumoperitoneum Leukocytosis, unspecified Acute abdominal pain Generalized abdominal pain Diverticulitis of intestine with perforation status post surgery Diverticulitis of large intestine with perforation and abscess without bleeding 02/01/2024: encourage PT. consult PT/OT. Toradol for SHERMAN. no bowel movement yet discussed with daughter at bedside 02/02/2024: continue with current tx. Still on NG tube. advance diet per Gen Surg. daughter asking if pt can ambulate. Pt still has NG tube with suction in place 02/03/2024: NG tube removed. pt tolerates PO. encourage ambulation. 02/04/2024: advance diet per Gen Surg. started on clear liquid. Encourage mobility 02/05/2024: advance diet as tolerated per Gen Surg Plan discussed with: Patient Date of Service: Feb 05, 2024 Billing Provider: THOMAS VILLALOBOS DO Common Visit Codes: [id number] INP/OBS CARE(HIGH) THOMAS VILLALOBOS DO Feb 05, 2024 13:26
--- NOTE | 2024-02-05 13:42 | MEDREC ---
[facility] ASP Intervention Section I FOR[facility] ASP Intervention: Review courses of therapy (PERITONEAL FLUID CULTURE RESULTED IN E.COLI WHICH CAN BE TREATED WITH CEFTRIAXONE. PLEASE CONSIDER DISCONTINUING FLAGYL IF THERE IS NO MORE RISK OF ANAEROBIC PATHOGENS) CYNDI GERMAN LOCATED WITHIN [facility] Feb 05, 2024 13:42
--- NOTE | 2024-02-05 20:05 | DVHPN2 ---
Progress Note - Dictate Date Seen: Feb 05, 2024 Medical Necessity Reason Pt with a Central, PICC or Fol: No Subjective Patient was seen and evaluated in follow up. No acute events overnight. No new complaints. Na and K are wnl. Glucose 134. Calcium 8.5. AST 79. ALT 54. Total protein 5.5. vital signs Vital Sign Date Time Temp Pulse Resp B/P (MAP) Pulse Ox O2 Delivery O2 Flow Rate FiO2 02/05/24 18:25 160/72 02/05/24 17:00 97.9 94 17 96 97.9 02/05/24 08:00 Room Air* 0 21 Total Intake and Output 02/04/24 02/04/24 02/05/24 15:00 23:00 07:00 Intake Total 1289 ml 650 ml Balance 1289 ml 650 ml medications Current Medications Medications Dose Ordered Sig/Sepideh Route Start Time Stop Time Status Last Admin Dose Admin Ceftriaxone Sodium 50 ml @ 100 mls/hr DAILY@09 IV 01/30/24 09:00 02/05/24 09:00 100 MLS/HR Metronidazole 100 ml @ 100 mls/hr Q8H IV 01/30/24 08:00 02/05/24 16:00 100 MLS/HR Pantoprazole Sodium 40 mg DAILY IV 01/30/24 10:00 02/05/24 10:00 40 MG Ondansetron HCl 4 mg Q4HP PRN IV 01/30/24 02:15 02/02/24 13:49 4 MG Acetaminophen 650 mg Q6HP PRN PO 01/30/24 02:15 02/05/24 01:20 650 MG Morphine Sulfate 2 mg Q4HPRN PRN IV 01/30/24 02:15 02/01/24 02:14 2 MG Hydralazine HCl 10 mg Q6HP PRN IV 01/30/24 02:15 02/05/24 18:25 10 MG Nitroglycerin 0.4 mg Q5MINP PRN SL 01/30/24 03:45 Morphine Sulfate 2 mg Q30M PRN IV 01/30/24 03:45 Diagnostic Test (Pha) 1 strip Q6HR 01/30/24 12:00 02/05/24 18:00 1 STRIP Insulin Human Regular FOLLOW SLIDING SCALE Q6HR SC 01/30/24 12:00 02/05/24 12:23 4 UNITS Dextrose 50 ml UD IV 01/30/24 11:45 Amino Acids 0 ml @ 0 mls/hr PER PHARMACY IV 01/30/24 11:45 Fat Emulsion Intravenous 50 ml/ Sodium Acetate 20 meq/Sodium Phosphate 20 meq/ Potassium Acetate 20 meq/Potassium Phosphate 22 meq/ Magnesium Sulfate 8 meq/ Multivitamins 10 ml/Chromium/ Copper/Manganese/ Zinc 1 ml/Amino Acids/Dextrose 893 ml @ 37 mls/hr Q24H9M IV 01/30/24 22:00 01/31/24 21:59 Cancel Sodium Chloride 10 ml QSHIFT@10,22 IV 01/30/24 22:00 02/05/24 10:00 10 ML Ketorolac Tromethamine 15 mg Q6HPRN PRN IV 02/01/24 15:00 02/06/24 14:59 02/02/24 21:16 15 MG Fat Emulsion Intravenous 150 ml/Sodium Phosphate 40 meq/ Potassium Phosphate 44 meq/ Magnesium Sulfate 12 meq/ Multivitamins 10 ml/Chromium/ Copper/Manganese/ Zinc 1 ml/Amino Acids/Dextrose 1,234 ml @ 51 mls/hr [id number] IV 02/04/24 22:00 02/05/24 21:59 02/04/24 21:54 51 MLS/HR Fat Emulsion Intravenous 150 ml/Sodium Acetate 20 meq/Potassium Acetate 20 meq/ Potassium Phosphate 22 meq/ Calcium Gluconate 2.3 meq/Magnesium Sulfate 14 meq/ Multivitamins 10 ml/Chromium/ Copper/Manganese/ Zinc 1 ml/Amino Acids/Dextrose 1,294.4462 ml @ 54 mls/hr [id number] IV 02/05/24 22:00 02/06/24 21:59 objective Physical Exam General Appearance: Cooperative, No acute distress HEENT: Atraumatic, PERRLA, EOMI, Mucous membr. moist/pink Respiratory: Clear to auscultation, Normal air movement Cardiovascular: Regular rate, Normal S1, Normal S2, No murmurs Abdominal: Normal bowel sounds, Soft, No hepatospenomegaly, No masses Extremities: No clubbing, No cyanosis, No edema, Normal pulses, No tenderness/swelling Skin: No rashes, No breakdown, No significant lesion Neuro: Normal gait, Normal speech, Strength at 5/5 X4 ext, Normal tone, Sensation intact, Cranial nerves 3-12 NL, Reflexes 2+ Psych/Mental Status: Alert, Oriented X3, Mental status NL, Mood NL laboratory and microbiology Laboratory Tests 02/05/24 05:49 Test 02/05/24 05:49 Range/Units Serum Glucose 134 H 74-106 mg/dL Problem List 1) Hyponatremia (2) Diverticulitis of large intestine with perforation and abscess without bleeding (3) Abdominal pain Assessment/Plan Agree with current supportive medical care. PT as recommended. Daily lab monitoring; electrolyte replacement prn. IV or oral hydration. IV Ceftriaxone and Metronidazole. Pain management prn. Bowel care regimen. Nutritional support with TPN. Advance diet per surgery. Additional plan as per the hospital course. Dietary Evaluation Review Comments: 1) Increase TPN to meet at least 75% or estimated needs 2) Advance pt diet when medically feasible to a 2gm Sodium diet 3) Continue current plan of care Expected Outcomes/Goals: 1) Pt to receive adequate nutrition support 2) Pt diet to advance 3) F/U in 2-3 days Plan discussed with: Patient, Other (RN) JOHAN SANCHES DO Feb 05, 2024 20:05
[2024-02-05] MEDS: TPN PER PHARMACY IV NR (20:59)
[2024-02-06] VITALS (8 sets, daily range): BP systolic 135–174; BP diastolic 52–82; PULSE 88–100; RESP 16–20; TEMP 97.6–98.1; O2SAT 94–98
[2024-02-06 06:42] LABS: Alanine Aminotransferase 40 U/L (7-40); Albumin 3.1 g/dL (3.2-4.8); Alkaline Phosphatase 73 U/L (46-116); Anion Gap 7 (5-15); Aspartate Aminotransferase 33 U/L (13-40); BUN/Creatinine Ratio 24.2 (10.0-20.0); Bilirubin, Total 0.4 mg/dL (0.2-1.0); Blood Urea Nitrogen 15 mg/dL (9-23); Calcium 8.5 mg/dL (8.7-10.4); Carbon Dioxide 28 mmol/L (20-31); Chloride 107 mmol/L (98-107); Glucose 127 mg/dL (74-106); Magnesium 2.1 mg/dL (1.6-2.6); Phosphorus 3.7 mg/dL (2.4-5.1); Potassium 3.7 mmol/L (3.5-5.1); Sodium 142 mmol/L (136-145); Triglycerides 83 mg/dL (< 150)
[2024-02-06 06:43] LABS: Total Protein 5.4 g/dL (5.7-8.2)
--- NOTE | 2024-02-06 07:44 | DVHPN2 ---
Progress Note Date Seen: Feb 06, 2024 Medical Necessity Reason Pt with a Central, PICC or Fol: No Objective vital signs Vital Sign Date Time Temp Pulse Resp B/P (MAP) Pulse Ox O2 Delivery O2 Flow Rate FiO2 02/06/24 05:00 97.6 88 18 142/69 (93) 98 97.6 02/05/24 19:30 Room Air* 0 21 Total Intake and Output 02/05/24 02/05/24 02/06/24 15:00 23:00 07:00 Intake Total 600 ml 240 ml Balance 600 ml 240 ml medications Current Medications Medications Dose Ordered Sig/Sepideh Route Start Time Stop Time Status Last Admin Dose Admin Ceftriaxone Sodium 50 ml @ 100 mls/hr DAILY@09 IV 01/30/24 09:00 02/05/24 09:00 100 MLS/HR Metronidazole 100 ml @ 100 mls/hr Q8H IV 01/30/24 08:00 02/06/24 00:13 100 MLS/HR Pantoprazole Sodium 40 mg DAILY IV 01/30/24 10:00 02/05/24 10:00 40 MG Ondansetron HCl 4 mg Q4HP PRN IV 01/30/24 02:15 02/02/24 13:49 4 MG Acetaminophen 650 mg Q6HP PRN PO 01/30/24 02:15 02/05/24 21:18 650 MG Morphine Sulfate 2 mg Q4HPRN PRN IV 01/30/24 02:15 02/01/24 02:14 2 MG Hydralazine HCl 10 mg Q6HP PRN IV 01/30/24 02:15 02/05/24 18:25 10 MG Nitroglycerin 0.4 mg Q5MINP PRN SL 01/30/24 03:45 Morphine Sulfate 2 mg Q30M PRN IV 01/30/24 03:45 Diagnostic Test (Pha) 1 strip Q6HR 01/30/24 12:00 02/06/24 06:42 1 STRIP Insulin Human Regular FOLLOW SLIDING SCALE Q6HR SC 01/30/24 12:00 02/06/24 00:20 2 UNITS Dextrose 50 ml UD IV 01/30/24 11:45 Amino Acids 0 ml @ 0 mls/hr PER PHARMACY IV 01/30/24 11:45 Fat Emulsion Intravenous 50 ml/ Sodium Acetate 20 meq/Sodium Phosphate 20 meq/ Potassium Acetate 20 meq/Potassium Phosphate 22 meq/ Magnesium Sulfate 8 meq/ Multivitamins 10 ml/Chromium/ Copper/Manganese/ Zinc 1 ml/Amino Acids/Dextrose 893 ml @ 37 mls/hr Q24H9M IV 01/30/24 22:00 01/31/24 21:59 Cancel Sodium Chloride 10 ml QSHIFT@10,22 IV 01/30/24 22:00 02/05/24 22:00 10 ML Ketorolac Tromethamine 15 mg Q6HPRN PRN IV 02/01/24 15:00 02/06/24 14:59 02/02/24 21:16 15 MG Fat Emulsion Intravenous 150 ml/Sodium Acetate 20 meq/Potassium Acetate 20 meq/ Potassium Phosphate 22 meq/ Calcium Gluconate 2.3 meq/Magnesium Sulfate 14 meq/ Multivitamins 10 ml/Chromium/ Copper/Manganese/ Zinc 1 ml/Amino Acids/Dextrose 1,294.4462 ml @ 54 mls/hr [id number] IV 02/05/24 22:00 02/06/24 21:59 02/05/24 20:59 54 MLS/HR laboratory and microbiology Laboratory Tests 02/06/24 05:18 02/05/24 05:49 Test 02/06/24 05:18 Range/Units Serum Glucose 127 H 74-106 mg/dL Problem List/Assessment/Plan Problem List/Assessment/Plan 01/31/24 C/O PAIN, WOUND CLEAN AND WELL APPROXIMATED, DRAINAGE SEROUS, NO BM NO FLATUS, MUST AMBULATE 02/01/24 refusing to ambulate despite tyhorough explanation of significance, abdo,men non distended, appropriately tender, drainage sero sanguineous. 02/03/24 PASSING FLATUS, FEELS MUCH BETTERE, ABDOMEN SOFT, NON DISTENDED, MINIMALLY TENDER, WILL DC NGT AND START PO LIQUIDS 02/04/24 passing flatus, has not ambulated, will dc [place], must ambulate!! 02/06/24 AFEBRILE,NORMOTENSIVE,WBC NL, WOUND OK Plan discussed with: Patient Dietary Evaluation Review Comments: 1) Increase TPN to meet at least 75% or estimated needs 2) Advance pt diet when medically feasible to a 2gm Sodium diet 3) Continue current plan of care Expected Outcomes/Goals: 1) Pt to receive adequate nutrition support 2) Pt diet to advance 3) F/U in 2-3 days REYNA SNOW MD Feb 06, 2024 07:44
--- NOTE | 2024-02-06 15:52 | DVHPN2 ---
Reviewed: Care Plan, H&P, Labs, Medications, Previous Orders, Radiology Changes from previous H/P or p: No Changes General: Per HPI Eyes: No Pain, No Vision change, No Conjunctivae inflammation, No Eyelid inflammation, No Other, No Redness ENT: No Ear pain, No Ear discharge, No Nose pain, No Nose discharge, No Nose congestion, No Mouth pain, No Mouth swelling, No Throat pain, No Throat swelling, No Other Cardiovascular: No Chest Pain, No Palpitations, No Orthopnea, No Paroxysmal Noc. Dyspnea, No Edema, No Lt Headedness, No Other Respiratory: No Cough, No Dry, No Shortness of breath, No SOB with excertion, No Wheezing, No Hemoptysis, No Pleuritic Pain, No Sputum, No Other Gastrointestinal: No Nausea, No Vomiting; Abdominal Pain; No Diarrhea, No Constipation, No Melena, No Hematochezia, No Other Genitourinary: No Dysuria, No Frequency, No Incontinence, No Hematuria, No Retention, No Other Musculoskeletal: No other, No neck pain, No shoulder pain, No arm pain, No back pain, No hand pain, No leg pain, No foot pain Skin: No Rash, No Lesions, No Jaundice, No Bruising, No Other Objective Vitals Vital Signs Date Time Temp Pulse Resp B/P (MAP) Pulse Ox O2 Delivery O2 Flow Rate FiO2 02/06/24 13:20 98.1 89 20 152/74 (100) 96 98.1 02/06/24 08:00 Room Air* 0 21 Intake/Output Intake and Output 02/06/24 07:00 Intake Total 840 ml Balance 840 ml Intake Oral 840 ml # Voids 4 # Bowel Movements 4 General Appearance: Alert, Oriented X3, Cooperative, mild distress HEENT: Atraumatic, PERRLA, EOMI Neck: Supple Cardiovascular: Regular rate, Normal S1, Normal S2, No murmurs, Gallops, Rubs Abdomen: Normal bowel sounds, Soft, No tenderness, No hepatospenomegaly Psych/Mental Status: Mental status NL Medications Current Medications Medications Dose Ordered Sig/Sepideh Route Start Time Stop Time Status Last Admin Dose Admin Ceftriaxone Sodium 50 ml @ 100 mls/hr DAILY@09 IV 01/30/24 09:00 02/06/24 09:00 100 MLS/HR Metronidazole 100 ml @ 100 mls/hr Q8H IV 01/30/24 08:00 02/06/24 08:00 100 MLS/HR Pantoprazole Sodium 40 mg DAILY IV 01/30/24 10:00 02/06/24 10:00 40 MG Ondansetron HCl 4 mg Q4HP PRN IV 01/30/24 02:15 02/02/24 13:49 4 MG Acetaminophen 650 mg Q6HP PRN PO 01/30/24 02:15 02/05/24 21:18 650 MG Morphine Sulfate 2 mg Q4HPRN PRN IV 01/30/24 02:15 02/01/24 02:14 2 MG Hydralazine HCl 10 mg Q6HP PRN IV 01/30/24 02:15 02/05/24 18:25 10 MG Nitroglycerin 0.4 mg Q5MINP PRN SL 01/30/24 03:45 Morphine Sulfate 2 mg Q30M PRN IV 01/30/24 03:45 Diagnostic Test (Pha) 1 strip Q6HR 01/30/24 12:00 02/06/24 12:00 1 STRIP Insulin Human Regular FOLLOW SLIDING SCALE Q6HR SC 01/30/24 12:00 02/06/24 11:42 2 UNITS Dextrose 50 ml UD IV 01/30/24 11:45 Amino Acids 0 ml @ 0 mls/hr PER PHARMACY IV 01/30/24 11:45 Fat Emulsion Intravenous 50 ml/ Sodium Acetate 20 meq/Sodium Phosphate 20 meq/ Potassium Acetate 20 meq/Potassium Phosphate 22 meq/ Magnesium Sulfate 8 meq/ Multivitamins 10 ml/Chromium/ Copper/Manganese/ Zinc 1 ml/Amino Acids/Dextrose 893 ml @ 37 mls/hr Q24H9M IV 01/30/24 22:00 01/31/24 21:59 Cancel Sodium Chloride 10 ml QSHIFT@10,22 IV 01/30/24 22:00 02/06/24 10:00 10 ML Fat Emulsion Intravenous 150 ml/Sodium Acetate 20 meq/Potassium Acetate 20 meq/ Potassium Phosphate 22 meq/ Calcium Gluconate 2.3 meq/Magnesium Sulfate 14 meq/ Multivitamins 10 ml/Chromium/ Copper/Manganese/ Zinc 1 ml/Amino Acids/Dextrose 1,294.4462 ml @ 54 mls/hr [id number] IV 02/05/24 22:00 02/06/24 21:59 02/05/24 20:59 54 MLS/HR Fat Emulsion Intravenous 200 ml/Potassium Phosphate 44 meq/ Magnesium Sulfate 16 meq/ Multivitamins 10 ml/Chromium/ Copper/Manganese/ Zinc 1 ml/Amino Acids/Dextrose 1,325 ml @ 58 mls/hr [id number] IV 02/06/24 22:00 02/07/24 19:59 Laboratory Results Laboratory Tests 02/05/24 05:49 02/06/24 05:18 Chemistry Test 02/06/24 05:18 Albumin 3.1 g/dL (3.2-4.8) L Calcium Level 8.5 mg/dL (8.7-10.4) L Magnesium Level 2.1 mg/dL (1.6-2.6) Phosphorus Level 3.7 mg/dL (2.4-5.1) Total Protein 5.4 g/dL (5.7-8.2) L Lipid panel Test 02/06/24 05:18 Triglycerides Level 83 mg/dL (< 150) LFT Test 02/06/24 05:18 Alanine Aminotransferase (ALT) 40 U/L (7-40) Alkaline Phosphatase 73 U/L (46-116) Aspartate Amino Transferase (AST) 33 U/L (13-40) Total Bilirubin 0.4 mg/dL (0.2-1.0) Urinalysis Test 01/29/24 23:10 Urine Color Straw (Yellow) Urine Clarity Clear (Clear) Urine pH 7.0 (5.0-9.0) Urine Specific [place] 1.012 (1.001-1.035) Urine Protein Negative (Negative) Urine Ketones Negative (Negative) Urine Blood Negative /uL (Negative) Urine Nitrite Negative (Negative) Urine Bilirubin Negative (Negative) Urine Urobilinogen Normal mg/dL (Negative) Urine Leukocyte Esterase Negative /uL (Negative) Urine RBC 2 /hpf (0 - 4) Urine WBC <1 /hpf (0 - 5) Urine Squamous Epithelial Cells None seen /hpf (<5) Urine Bacteria None seen /hpf (None Seen) Urine Glucose Normal mg/dL (Normal) Microbiology Microbiology Date/Time Source Procedure Growth Status 01/30/24 11:09 Peritoneal Fluid Gram Stain - Final Complete 01/30/24 11:09 Peritoneal Fluid Anaerobic Culture - Final Complete 01/30/24 11:09 Aerobic Culture - Final Escherichia coli Complete Assessment/Plan Assessment/Plan Pneumoperitoneum Leukocytosis, unspecified Acute abdominal pain Generalized abdominal pain Diverticulitis of intestine with perforation status post surgery Diverticulitis of large intestine with perforation and abscess without bleeding 02/01/2024: encourage PT. consult PT/OT. Toradol for SHERMAN. no bowel movement yet discussed with daughter at bedside 02/02/2024: continue with current tx. Still on NG tube. advance diet per Gen Surg. daughter asking if pt can ambulate. Pt still has NG tube with suction in place 02/03/2024: NG tube removed. pt tolerates PO. encourage ambulation. 02/04/2024: advance diet per Gen Surg. started on clear liquid. Encourage mobility 02/05/2024: advance diet as tolerated per Gen Surg 02/06/2024: advancing diet. discussed with daughter. pt and daughter awaiting for gen surg to evaluate and clear for d/c Plan discussed with: Patient Date of Service: Feb 06, 2024 Billing Provider: THOMAS VILLALOBOS DO Common Visit Codes: [id number] INP/OBS CARE(HIGH) THOMAS VILLALOBOS DO Feb 06, 2024 15:52
[2024-02-06] MEDS ORDERED: DOCU-265 PO (15:55)
[2024-02-06] MEDS ORDERED: NAPR-746 PO (15:55)
[2024-02-06] MEDS ORDERED: CEPH250C PO (15:55)
--- NOTE | 2024-02-06 20:24 | DVHPN2 ---
Progress Note - Dictate Date Seen: Feb 06, 2024 Medical Necessity Reason Pt with a Central, PICC or Fol: No Subjective Patient was seen and evaluated in follow up. No acute events overnight. No new complaints. Diet advanced. Labs are stable. vital signs Vital Sign Date Time Temp Pulse Resp B/P (MAP) Pulse Ox O2 Delivery O2 Flow Rate FiO2 02/06/24 17:00 98.0 90 19 174/82 (112) 97 98.0 02/06/24 08:00 Room Air* 0 21 Total Intake and Output 02/05/24 02/05/24 02/06/24 15:00 23:00 07:00 Intake Total 600 ml 240 ml Balance 600 ml 240 ml medications Current Medications Medications Dose Ordered Sig/Sepideh Route Start Time Stop Time Status Last Admin Dose Admin Ceftriaxone Sodium 50 ml @ 100 mls/hr DAILY@09 IV 01/30/24 09:00 02/06/24 09:00 100 MLS/HR Metronidazole 100 ml @ 100 mls/hr Q8H IV 01/30/24 08:00 02/06/24 16:52 100 MLS/HR Pantoprazole Sodium 40 mg DAILY IV 01/30/24 10:00 02/06/24 10:00 40 MG Ondansetron HCl 4 mg Q4HP PRN IV 01/30/24 02:15 02/02/24 13:49 4 MG Acetaminophen 650 mg Q6HP PRN PO 01/30/24 02:15 02/05/24 21:18 650 MG Morphine Sulfate 2 mg Q4HPRN PRN IV 01/30/24 02:15 02/01/24 02:14 2 MG Hydralazine HCl 10 mg Q6HP PRN IV 01/30/24 02:15 02/05/24 18:25 10 MG Nitroglycerin 0.4 mg Q5MINP PRN SL 01/30/24 03:45 Morphine Sulfate 2 mg Q30M PRN IV 01/30/24 03:45 Diagnostic Test (Pha) 1 strip Q6HR 01/30/24 12:00 02/06/24 18:44 1 STRIP Insulin Human Regular FOLLOW SLIDING SCALE Q6HR SC 01/30/24 12:00 02/06/24 11:42 2 UNITS Dextrose 50 ml UD IV 01/30/24 11:45 Amino Acids 0 ml @ 0 mls/hr PER PHARMACY IV 01/30/24 11:45 Fat Emulsion Intravenous 50 ml/ Sodium Acetate 20 meq/Sodium Phosphate 20 meq/ Potassium Acetate 20 meq/Potassium Phosphate 22 meq/ Magnesium Sulfate 8 meq/ Multivitamins 10 ml/Chromium/ Copper/Manganese/ Zinc 1 ml/Amino Acids/Dextrose 893 ml @ 37 mls/hr Q24H9M IV 01/30/24 22:00 01/31/24 21:59 Cancel Sodium Chloride 10 ml QSHIFT@10,22 IV 01/30/24 22:00 02/06/24 10:00 10 ML Fat Emulsion Intravenous 150 ml/Sodium Acetate 20 meq/Potassium Acetate 20 meq/ Potassium Phosphate 22 meq/ Calcium Gluconate 2.3 meq/Magnesium Sulfate 14 meq/ Multivitamins 10 ml/Chromium/ Copper/Manganese/ Zinc 1 ml/Amino Acids/Dextrose 1,294.4462 ml @ 54 mls/hr [id number] IV 02/05/24 22:00 02/06/24 21:59 02/05/24 20:59 54 MLS/HR Fat Emulsion Intravenous 200 ml/Potassium Phosphate 44 meq/ Magnesium Sulfate 16 meq/ Multivitamins 10 ml/Chromium/ Copper/Manganese/ Zinc 1 ml/Amino Acids/Dextrose 1,325 ml @ 58 mls/hr [id number] IV 02/06/24 22:00 02/07/24 19:59 Docusate Sodium 100 mg BID PO 02/06/24 22:00 objective Physical Exam General Appearance: Cooperative, No acute distress HEENT: Atraumatic, PERRLA, EOMI, Mucous membr. moist/pink Respiratory: Clear to auscultation, Normal air movement Cardiovascular: Regular rate, Normal S1, Normal S2, No murmurs Abdominal: Normal bowel sounds, Soft, No hepatospenomegaly, No masses Extremities: No clubbing, No cyanosis, No edema, Normal pulses, No tenderness/swelling Skin: No rashes, No breakdown, No significant lesion Neuro: Normal gait, Normal speech, Strength at 5/5 X4 ext, Normal tone, Sensation intact, Cranial nerves 3-12 NL, Reflexes 2+ Psych/Mental Status: Alert, Oriented X3, Mental status NL, Mood NL laboratory and microbiology Laboratory Tests 02/06/24 05:18 02/05/24 05:49 Test 11/17/24 05:18 Range/Units Serum Glucose 127 H 74-106 mg/dL Problem List 1) Hyponatremia (2) Diverticulitis of large intestine with perforation and abscess without bleeding (3) Abdominal pain Assessment/Plan Agree with current supportive medical care. PT as recommended. IV or oral hydration. IV Ceftriaxone and Metronidazole. Pain management prn. Bowel care regimen. Diet advanced. Additional plan as per the hospital course. Dietary Evaluation Review Comments: 1) Increase TPN to meet at least 75% or estimated needs 2) Advance pt diet when medically feasible to a 2gm Sodium diet 3) Continue current plan of care Expected Outcomes/Goals: 1) Pt to receive adequate nutrition support 2) Pt diet to advance 3) F/U in 2-3 days Plan discussed with: Patient, Other (RN) JOHAN SANCHES DO Feb 06, 2024 20:24
[2024-02-06] MEDS ORDERED: DOCUSATE CALCIUM 240 MG CAP PO ONE (22:00)
[2024-02-06] MEDS: TPN PER PHARMACY IV NR (22:22)
[2024-02-06] MEDS: DOCUSATE SOD 100 MG CAP PO SCH (23:15)
[2024-02-07] VITALS (7 sets, daily range): BP systolic 138–165; BP diastolic 68–82; PULSE 89–108; RESP 16–19; TEMP 97.7–97.9; O2SAT 94–99
[2024-02-07 06:55] LABS: Alanine Aminotransferase 34 U/L (7-40); Albumin 3.2 g/dL (3.2-4.8); Alkaline Phosphatase 74 U/L (46-116); Anion Gap 8 (5-15); Aspartate Aminotransferase 22 U/L (13-40); BUN/Creatinine Ratio 26.9 (10.0-20.0); Blood Urea Nitrogen 18 mg/dL (9-23); Calcium 8.9 mg/dL (8.7-10.4); Carbon Dioxide 26 mmol/L (20-31); Chloride 107 mmol/L (98-107); Glucose 80 mg/dL (74-106); Magnesium 2.1 mg/dL (1.6-2.6); Phosphorus 3.6 mg/dL (2.4-5.1); Potassium 3.9 mmol/L (3.5-5.1); Sodium 141 mmol/L (136-145)
[2024-02-07 06:56] LABS: Bilirubin, Total 0.4 mg/dL (0.2-1.0); Total Protein 5.7 g/dL (5.7-8.2)
--- NOTE | 2024-02-07 11:05 | DVHPN2 ---
Subjective The patient is seen and examined at bedside. The patient still have abdominal pain. Reviewed: Care Plan, H&P, Labs, Medications, Previous Orders, Radiology Changes from previous H/P or p: No Changes General: Per HPI Eyes: No Pain, No Vision change, No Conjunctivae inflammation, No Eyelid inflammation, No Other, No Redness ENT: No Ear pain, No Ear discharge, No Nose pain, No Nose discharge, No Nose congestion, No Mouth pain, No Mouth swelling, No Throat pain, No Throat swelling, No Other Cardiovascular: No Chest Pain, No Palpitations, No Orthopnea, No Paroxysmal Noc. Dyspnea, No Edema, No Lt Headedness, No Other Respiratory: No Cough, No Dry, No Shortness of breath, No SOB with excertion, No Wheezing, No Hemoptysis, No Pleuritic Pain, No Sputum, No Other Gastrointestinal: No Nausea, No Vomiting; Abdominal Pain; No Diarrhea, No Constipation, No Melena, No Hematochezia, No Other Genitourinary: No Dysuria, No Frequency, No Incontinence, No Hematuria, No Retention, No Other Musculoskeletal: No other, No neck pain, No shoulder pain, No arm pain, No back pain, No hand pain, No leg pain, No foot pain Skin: No Rash, No Lesions, No Jaundice, No Bruising, No Other Objective Vitals Vital Signs Date Time Temp Pulse Resp B/P (MAP) Pulse Ox O2 Delivery O2 Flow Rate FiO2 02/07/24 09:27 97.9 90 16 138/72 (94) 98 97.9 02/07/24 08:00 Room Air* 0 21 Intake/Output Intake and Output 02/07/24 07:00 Intake Total 2383 ml Output Total 12 ml Balance 2371 ml Intake Oral 668 ml IV Total 1715 ml Stool Total 2 ml Drainage Total 10 ml # Voids 4 General Appearance: Alert, Oriented X3, Cooperative, mild distress HEENT: Atraumatic, PERRLA, EOMI Neck: Supple Cardiovascular: Regular rate, Normal S1, Normal S2, No murmurs, Gallops, Rubs Abdomen: Normal bowel sounds, Soft, No tenderness, No hepatospenomegaly Psych/Mental Status: Mental status NL Medications Current Medications Medications Dose Ordered Sig/Sepideh Route Start Time Stop Time Status Last Admin Dose Admin Ceftriaxone Sodium 50 ml @ 100 mls/hr DAILY@09 IV 01/30/24 09:00 02/07/24 08:08 100 MLS/HR Metronidazole 100 ml @ 100 mls/hr Q8H IV 01/30/24 08:00 02/07/24 09:01 100 MLS/HR Pantoprazole Sodium 40 mg DAILY IV 01/30/24 10:00 02/07/24 08:11 40 MG Ondansetron HCl 4 mg Q4HP PRN IV 01/30/24 02:15 02/02/24 13:49 4 MG Acetaminophen 650 mg Q6HP PRN PO 01/30/24 02:15 02/07/24 00:52 650 MG Morphine Sulfate 2 mg Q4HPRN PRN IV 01/30/24 02:15 02/01/24 02:14 2 MG Hydralazine HCl 10 mg Q6HP PRN IV 01/30/24 02:15 02/05/24 18:25 10 MG Nitroglycerin 0.4 mg Q5MINP PRN SL 01/30/24 03:45 Morphine Sulfate 2 mg Q30M PRN IV 01/30/24 03:45 Diagnostic Test (Pha) 1 strip Q6HR 01/30/24 12:00 02/07/24 06:09 1 STRIP Insulin Human Regular FOLLOW SLIDING SCALE Q6HR SC 01/30/24 12:00 02/07/24 00:30 2 UNITS Dextrose 50 ml UD IV 01/30/24 11:45 Amino Acids 0 ml @ 0 mls/hr PER PHARMACY IV 01/30/24 11:45 Fat Emulsion Intravenous 50 ml/ Sodium Acetate 20 meq/Sodium Phosphate 20 meq/ Potassium Acetate 20 meq/Potassium Phosphate 22 meq/ Magnesium Sulfate 8 meq/ Multivitamins 10 ml/Chromium/ Copper/Manganese/ Zinc 1 ml/Amino Acids/Dextrose 893 ml @ 37 mls/hr Q24H9M IV 01/30/24 22:00 01/31/24 21:59 Cancel Sodium Chloride 10 ml QSHIFT@,22 IV 01/30/24 22:00 02/07/24 08:14 10 ML Fat Emulsion Intravenous 200 ml/Potassium Phosphate 44 meq/ Magnesium Sulfate 16 meq/ Multivitamins 10 ml/Chromium/ Copper/Manganese/ Zinc 1 ml/Amino Acids/Dextrose 1,325 ml @ 58 mls/hr [id number] IV 02/06/24 22:00 11/18/24 19:59 02/06/24 22:22 58 MLS/HR Docusate Sodium 100 mg BID PO 02/06/24 22:00 02/07/24 08:11 100 MG Laboratory Results Laboratory Tests 02/05/24 05:49 02/07/24 05:30 Chemistry Test 02/07/24 05:30 Albumin 3.2 g/dL (3.2-4.8) Calcium Level 8.9 mg/dL (8.7-10.4) Magnesium Level 2.1 mg/dL (1.6-2.6) Phosphorus Level 3.6 mg/dL (2.4-5.1) Total Protein 5.7 g/dL (5.7-8.2) LFT Test 02/07/24 05:30 Alanine Aminotransferase (ALT) 34 U/L (7-40) Alkaline Phosphatase 74 U/L (46-116) Aspartate Amino Transferase (AST) 22 U/L (13-40) Total Bilirubin 0.4 mg/dL (0.2-1.0) Urinalysis Test 01/29/24 23:10 Urine Color Straw (Yellow) Urine Clarity Clear (Clear) Urine pH 7.0 (5.0-9.0) Urine Specific [place] 1.012 (1.001-1.035) Urine Protein Negative (Negative) Urine Ketones Negative (Negative) Urine Blood Negative /uL (Negative) Urine Nitrite Negative (Negative) Urine Bilirubin Negative (Negative) Urine Urobilinogen Normal mg/dL (Negative) Urine Leukocyte Esterase Negative /uL (Negative) Urine RBC 2 /hpf (0 - 4) Urine WBC <1 /hpf (0 - 5) Urine Squamous Epithelial Cells None seen /hpf (<5) Urine Bacteria None seen /hpf (None Seen) Urine Glucose Normal mg/dL (Normal) Microbiology Microbiology Date/Time Source Procedure Growth Status 01/30/24 11:09 Peritoneal Fluid Gram Stain - Final Complete 01/30/24 11:09 Peritoneal Fluid Anaerobic Culture - Final Complete 01/30/24 11:09 Aerobic Culture - Final Escherichia coli Complete Labs and/or images reviewed: Labs reviewed by me Assessment/Plan Assessment/Plan Pneumoperitoneum Leukocytosis, unspecified Acute abdominal pain Generalized abdominal pain Diverticulitis of intestine with perforation status post surgery Diverticulitis of large intestine with perforation and abscess without bleeding Plan: Continuing current management. Continuing with IV antibiotic ceftriaxone in Flagyl. Continuing with TPN. Advance diet per surgeon. DW daughter and patient regarding to plan of care. Continuing with IV morphine for pain control. Continue metoprolol and lisinopril. Plan discussed with: Patient, Daughter Date of Service: Feb 07, 2024 Billing Provider: TED DEUTSCH MD Common Visit Codes: [id number] INP/OBS CARE(HIGH) TED DEUTSCH MD Feb 07, 2024 11:05
[2024-02-07] MEDS: LISINOPRIL 5 MG TAB PO SCH (17:41)
[2024-02-07] MEDS: METOPROLOL TARTRATE 25 MG TAB PO SCH (17:42)
--- NOTE | 2024-02-07 19:55 | DVHPN2 ---
Progress Note - Dictate Date Seen: Feb 07, 2024 Medical Necessity Reason Pt with a Central, PICC or Fol: No Subjective Patient was seen and evaluated in follow up. No acute events overnight. Patient denies any new complaints. Awaiting arrangements for DME. Labs are stable. vital signs Vital Sign Date Time Temp Pulse Resp B/P (MAP) Pulse Ox O2 Delivery O2 Flow Rate FiO2 02/07/24 18:42 84 162/82 02/07/24 17:27 97.9 17 96 97.9 02/07/24 08:00 Room Air* 0 21 Total Intake and Output 02/06/24 02/06/24 02/07/24 15:00 23:00 07:00 Intake Total 1496 ml 887 ml Output Total 2 ml 10 ml Balance 1494 ml 877 ml medications Current Medications Medications Dose Ordered Sig/Sepideh Route Start Time Stop Time Status Last Admin Dose Admin Ceftriaxone Sodium 50 ml @ 100 mls/hr DAILY@09 IV 01/30/24 09:00 02/07/24 08:08 100 MLS/HR Metronidazole 100 ml @ 100 mls/hr Q8H IV 01/30/24 08:00 02/07/24 16:28 100 MLS/HR Pantoprazole Sodium 40 mg DAILY IV 01/30/24 10:00 02/07/24 08:11 40 MG Ondansetron HCl 4 mg Q4HP PRN IV 01/30/24 02:15 02/02/24 13:49 4 MG Acetaminophen 650 mg Q6HP PRN PO 01/30/24 02:15 02/07/24 00:52 650 MG Morphine Sulfate 2 mg Q4HPRN PRN IV 01/30/24 02:15 02/01/24 02:14 2 MG Hydralazine HCl 10 mg Q6HP PRN IV 01/30/24 02:15 02/07/24 11:42 10 MG Nitroglycerin 0.4 mg Q5MINP PRN SL 01/30/24 03:45 Morphine Sulfate 2 mg Q30M PRN IV 01/30/24 03:45 Diagnostic Test (Pha) 1 strip Q6HR 01/30/24 12:00 02/07/24 17:47 1 STRIP Insulin Human Regular FOLLOW SLIDING SCALE Q6HR SC 01/30/24 12:00 02/07/24 00:30 2 UNITS Dextrose 50 ml UD IV 01/30/24 11:45 Amino Acids 0 ml @ 0 mls/hr PER PHARMACY IV 01/30/24 11:45 Fat Emulsion Intravenous 50 ml/ Sodium Acetate 20 meq/Sodium Phosphate 20 meq/ Potassium Acetate 20 meq/Potassium Phosphate 22 meq/ Magnesium Sulfate 8 meq/ Multivitamins 10 ml/Chromium/ Copper/Manganese/ Zinc 1 ml/Amino Acids/Dextrose 893 ml @ 37 mls/hr Q24H9M IV 01/30/24 22:00 01/31/24 21:59 Cancel Sodium Chloride 10 ml QSHIFT@10,22 IV 01/30/24 22:00 02/07/24 08:14 10 ML Fat Emulsion Intravenous 200 ml/Potassium Phosphate 44 meq/ Magnesium Sulfate 16 meq/ Multivitamins 10 ml/Chromium/ Copper/Manganese/ Zinc 1 ml/Amino Acids/Dextrose 1,325 ml @ 58 mls/hr [id number] IV 02/06/24 22:00 02/07/24 19:59 02/06/24 22:22 58 MLS/HR Docusate Sodium 100 mg BID PO 02/06/24 22:00 02/07/24 08:11 100 MG Fat Emulsion Intravenous 200 ml/Potassium Phosphate 44 meq/ Magnesium Sulfate 18 meq/ Multivitamins 10 ml/Chromium/ Copper/Manganese/ Zinc 1 ml/Amino Acids/Dextrose 1,325.5 ml @ 55 mls/hr Q24H6M IV 02/07/24 22:00 02/08/24 21:59 Metoprolol Tartrate 25 mg DAILY PO 02/07/24 18:00 02/07/24 17:42 25 MG Lisinopril 10 mg DAILY PO 02/07/24 18:00 02/07/24 17:41 10 MG objective Physical Exam General Appearance: Cooperative, No acute distress HEENT: Atraumatic, PERRLA, EOMI, Mucous membr. moist/pink Respiratory: Clear to auscultation, Normal air movement Cardiovascular: Regular rate, Normal S1, Normal S2, No murmurs Abdominal: Normal bowel sounds, Soft, No hepatospenomegaly, No masses Extremities: No clubbing, No cyanosis, No edema, Normal pulses, No tenderness/swelling Skin: No rashes, No breakdown, No significant lesion Neuro: Normal gait, Normal speech, Strength at 5/5 X4 ext, Normal tone, Sensation intact, Cranial nerves 3-12 NL, Reflexes 2+ Psych/Mental Status: Alert, Oriented X3, Mental status NL, Mood NL laboratory and microbiology Laboratory Tests 02/07/24 05:30 02/05/24 05:49 Test 02/07/24 05:30 Range/Units Serum Glucose 80 74-106 mg/dL Problem List 1) Hyponatremia (2) Diverticulitis of large intestine with perforation and abscess without bleeding (3) Abdominal pain Assessment/Plan Agree with current supportive medical care. PT as recommended. IV or oral hydration. IV Ceftriaxone and Metronidazole. Pain management prn. Bowel care regimen. Diet as tolerated. Additional plan as per the hospital course. Dietary Evaluation Review Comments: 1) Increase TPN to meet at least 75% or estimated needs 2) Advance pt diet when medically feasible to a 2gm Sodium diet 3) Continue current plan of care Expected Outcomes/Goals: 1) Pt to receive adequate nutrition support 2) Pt diet to advance 3) F/U in 2-3 days Plan discussed with: Patient, Other (RN) JOHAN SANCHES DO Feb 07, 2024 19:55
[2024-02-07] MEDS: TPN PER PHARMACY IV NR (23:05)
[2024-02-08] VITALS (7 sets, daily range): BP systolic 131–144; BP diastolic 63–77; PULSE 86–97; RESP 18–19; TEMP 97.4–98.3; O2SAT 94–99
[2024-02-08 06:24] LABS: Alanine Aminotransferase 32 U/L (7-40); Albumin 3.5 g/dL (3.2-4.8); Alkaline Phosphatase 81 U/L (46-116); Anion Gap 8 (5-15); Aspartate Aminotransferase 24 U/L (13-40); BUN/Creatinine Ratio 21.8 (10.0-20.0); Bilirubin, Total 0.5 mg/dL (0.2-1.0); Blood Urea Nitrogen 17 mg/dL (9-23); Calcium 9.3 mg/dL (8.7-10.4); Carbon Dioxide 25 mmol/L (20-31); Chloride 107 mmol/L (98-107); Glucose 115 mg/dL (74-106); Magnesium 2.1 mg/dL (1.6-2.6); Phosphorus 3.6 mg/dL (2.4-5.1); Potassium 3.9 mmol/L (3.5-5.1); Sodium 140 mmol/L (136-145); Total Protein 6.2 g/dL (5.7-8.2)
--- NOTE | 2024-02-08 11:10 | DVHPN2 ---
Subjective The patient is seen and examined at bedside. The patient still have abdominal pain. Reviewed: Care Plan, H&P, Labs, Medications, Previous Orders, Radiology Changes from previous H/P or p: No Changes General: Per HPI Eyes: No Pain, No Vision change, No Conjunctivae inflammation, No Eyelid inflammation, No Other, No Redness ENT: No Ear pain, No Ear discharge, No Nose pain, No Nose discharge, No Nose congestion, No Mouth pain, No Mouth swelling, No Throat pain, No Throat swelling, No Other Cardiovascular: No Chest Pain, No Palpitations, No Orthopnea, No Paroxysmal Noc. Dyspnea, No Edema, No Lt Headedness, No Other Respiratory: No Cough, No Dry, No Shortness of breath, No SOB with excertion, No Wheezing, No Hemoptysis, No Pleuritic Pain, No Sputum, No Other Gastrointestinal: No Nausea, No Vomiting; Abdominal Pain; No Diarrhea, No Constipation, No Melena, No Hematochezia, No Other Genitourinary: No Dysuria, No Frequency, No Incontinence, No Hematuria, No Retention, No Other Musculoskeletal: No other, No neck pain, No shoulder pain, No arm pain, No back pain, No hand pain, No leg pain, No foot pain Skin: No Rash, No Lesions, No Jaundice, No Bruising, No Other Objective Vitals Vital Signs Date Time Temp Pulse Resp B/P (MAP) Pulse Ox O2 Delivery O2 Flow Rate FiO2 02/08/24 09:15 144/63 02/08/24 09:15 95 02/08/24 09:00 98.1 19 97 98.1 02/08/24 08:00 Room Air* 0 21 Intake/Output Intake and Output 02/08/24 07:00 Intake Total 3941 ml Output Total 300 ml Balance 3641 ml Intake Oral 1630 ml IV Total 2311 ml Output Urine Total 300 ml # Voids 7 # Bowel Movements 1 General Appearance: Alert, Oriented X3, Cooperative, mild distress HEENT: Atraumatic, PERRLA, EOMI Neck: Supple Cardiovascular: Regular rate, Normal S1, Normal S2, No murmurs, Gallops, Rubs Abdomen: Normal bowel sounds, Soft, No tenderness, No hepatospenomegaly Psych/Mental Status: Mental status NL Medications Current Medications Medications Dose Ordered Sig/Sepideh Route Start Time Stop Time Status Last Admin Dose Admin Ceftriaxone Sodium 50 ml @ 100 mls/hr DAILY@09 IV 01/30/24 09:00 02/07/24 08:08 100 MLS/HR Metronidazole 100 ml @ 100 mls/hr Q8H IV 01/30/24 08:00 02/08/24 08:16 100 MLS/HR Pantoprazole Sodium 40 mg DAILY IV 01/30/24 10:00 02/08/24 09:05 40 MG Ondansetron HCl 4 mg Q4HP PRN IV 01/30/24 02:15 02/02/24 13:49 4 MG Acetaminophen 650 mg Q6HP PRN PO 01/30/24 02:15 02/07/24 20:51 650 MG Hydralazine HCl 10 mg Q6HP PRN IV 01/30/24 02:15 02/07/24 11:42 10 MG Nitroglycerin 0.4 mg Q5MINP PRN SL 01/30/24 03:45 Diagnostic Test (Pha) 1 strip Q6HR 01/30/24 12:00 02/08/24 06:02 1 STRIP Insulin Human Regular FOLLOW SLIDING SCALE Q6HR SC 01/30/24 12:00 02/07/24 00:30 2 UNITS Dextrose 50 ml UD IV 01/30/24 11:45 Amino Acids 0 ml @ 0 mls/hr PER PHARMACY IV 01/30/24 11:45 Fat Emulsion Intravenous 50 ml/ Sodium Acetate 20 meq/Sodium Phosphate 20 meq/ Potassium Acetate 20 meq/Potassium Phosphate 22 meq/ Magnesium Sulfate 8 meq/ Multivitamins 10 ml/Chromium/ Copper/Manganese/ Zinc 1 ml/Amino Acids/Dextrose 893 ml @ 37 mls/hr Q24H9M IV 01/30/24 22:00 01/31/24 21:59 Cancel Sodium Chloride 10 ml QSHIFT@10,22 IV 01/30/24 22:00 02/08/24 09:14 10 ML Docusate Sodium 100 mg BID PO 02/06/24 22:00 02/08/24 09:13 100 MG Fat Emulsion Intravenous 200 ml/Potassium Phosphate 44 meq/ Magnesium Sulfate 18 meq/ Multivitamins 10 ml/Chromium/ Copper/Manganese/ Zinc 1 ml/Amino Acids/Dextrose 1,325.5 ml @ 55 mls/hr Q24H6M IV 02/07/24 22:00 02/08/24 21:59 02/07/24 23:05 55 MLS/HR Metoprolol Tartrate 25 mg DAILY PO 02/07/24 18:00 02/08/24 09:15 25 MG Lisinopril 10 mg DAILY PO 02/07/24 18:00 02/08/24 09:15 10 MG Fat Emulsion Intravenous 200 ml/Potassium Phosphate 44 meq/ Magnesium Sulfate 20 meq/ Multivitamins 10 ml/Chromium/ Copper/Manganese/ Zinc 1 ml/Amino Acids/Dextrose 1,326 ml @ 55 mls/hr Q24H7M IV 02/08/24 22:00 02/09/24 21:59 Laboratory Results Laboratory Tests 02/05/24 05:49 02/08/24 04:58 Chemistry Test 02/08/24 04:58 Albumin 3.5 g/dL (3.2-4.8) Calcium Level 9.3 mg/dL (8.7-10.4) Magnesium Level 2.1 mg/dL (1.6-2.6) Phosphorus Level 3.6 mg/dL (2.4-5.1) Total Protein 6.2 g/dL (5.7-8.2) LFT Test 02/08/24 04:58 Alanine Aminotransferase (ALT) 32 U/L (7-40) Alkaline Phosphatase 81 U/L (46-116) Aspartate Amino Transferase (AST) 24 U/L (13-40) Total Bilirubin 0.5 mg/dL (0.2-1.0) Urinalysis Test 01/29/24 23:10 Urine Color Straw (Yellow) Urine Clarity Clear (Clear) Urine pH 7.0 (5.0-9.0) Urine Specific [place] 1.012 (1.001-1.035) Urine Protein Negative (Negative) Urine Ketones Negative (Negative) Urine Blood Negative /uL (Negative) Urine Nitrite Negative (Negative) Urine Bilirubin Negative (Negative) Urine Urobilinogen Normal mg/dL (Negative) Urine Leukocyte Esterase Negative /uL (Negative) Urine RBC 2 /hpf (0 - 4) Urine WBC <1 /hpf (0 - 5) Urine Squamous Epithelial Cells None seen /hpf (<5) Urine Bacteria None seen /hpf (None Seen) Urine Glucose Normal mg/dL (Normal) Microbiology Microbiology Date/Time Source Procedure Growth Status 01/30/24 11:09 Peritoneal Fluid Gram Stain - Final Complete 01/30/24 11:09 Peritoneal Fluid Anaerobic Culture - Final Complete 01/30/24 11:09 Aerobic Culture - Final Escherichia coli Complete Labs and/or images reviewed: Labs reviewed by me Assessment/Plan Assessment/Plan Pneumoperitoneum Leukocytosis, unspecified Acute abdominal pain Generalized abdominal pain Diverticulitis of intestine with perforation status post surgery Diverticulitis of large intestine with perforation and abscess without bleeding Plan: Continuing current management. Continuing with IV antibiotic ceftriaxone in Flagyl. Continuing with TPN. Advance diet per surgeon. DW daughter and patient regarding to plan of care. Continuing with IV morphine for pain control. Continue metoprolol and lisinopril. The patient start on soft diet today. Will see how she tolerate it. Discharge planning when clear by surgeon Plan discussed with: Patient Date of Service: Feb 08, 2024 Billing Provider: TED DEUTSCH MD Common Visit Codes: [id number] INP/OBS CARE(HIGH) TED DEUTSCH MD Feb 08, 2024 11:10
--- NOTE | 2024-02-08 12:07 | DVHPN2 ---
Progress Note Date Seen: Feb 08, 2024 Medical Necessity Reason Pt with a Central, PICC or Fol: No Objective vital signs Vital Sign Date Time Temp Pulse Resp B/P (MAP) Pulse Ox O2 Delivery O2 Flow Rate FiO2 02/08/24 09:15 144/63 02/08/24 09:15 95 02/08/24 09:00 98.1 19 97 98.1 02/08/24 08:00 Room Air* 0 21 Total Intake and Output 02/07/24 02/07/24 02/08/24 15:00 23:00 07:00 Intake Total 390 ml 2866 ml 685 ml Output Total 300 ml Balance 390 ml 2866 ml 385 ml medications Current Medications Medications Dose Ordered Sig/Sepideh Route Start Time Stop Time Status Last Admin Dose Admin Ceftriaxone Sodium 50 ml @ 100 mls/hr DAILY@09 IV 01/30/24 09:00 02/08/24 11:29 100 MLS/HR Metronidazole 100 ml @ 100 mls/hr Q8H IV 01/30/24 08:00 02/08/24 08:16 100 MLS/HR Pantoprazole Sodium 40 mg DAILY IV 01/30/24 10:00 02/08/24 09:05 40 MG Ondansetron HCl 4 mg Q4HP PRN IV 01/30/24 02:15 02/02/24 13:49 4 MG Acetaminophen 650 mg Q6HP PRN PO 01/30/24 02:15 02/07/24 20:51 650 MG Hydralazine HCl 10 mg Q6HP PRN IV 01/30/24 02:15 02/07/24 11:42 10 MG Nitroglycerin 0.4 mg Q5MINP PRN SL 01/30/24 03:45 Diagnostic Test (Pha) 1 strip Q6HR 01/30/24 12:00 02/08/24 06:02 1 STRIP Insulin Human Regular FOLLOW SLIDING SCALE Q6HR SC 01/30/24 12:00 02/07/24 00:30 2 UNITS Dextrose 50 ml UD IV 01/30/24 11:45 Amino Acids 0 ml @ 0 mls/hr PER PHARMACY IV 01/30/24 11:45 Fat Emulsion Intravenous 50 ml/ Sodium Acetate 20 meq/Sodium Phosphate 20 meq/ Potassium Acetate 20 meq/Potassium Phosphate 22 meq/ Magnesium Sulfate 8 meq/ Multivitamins 10 ml/Chromium/ Copper/Manganese/ Zinc 1 ml/Amino Acids/Dextrose 893 ml @ 37 mls/hr Q24H9M IV 01/30/24 22:00 01/31/24 21:59 Cancel Sodium Chloride 10 ml QSHIFT@,22 IV 01/30/24 22:00 02/08/24 09:14 10 ML Docusate Sodium 100 mg BID PO 02/06/24 22:00 02/08/24 09:13 100 MG Fat Emulsion Intravenous 200 ml/Potassium Phosphate 44 meq/ Magnesium Sulfate 18 meq/ Multivitamins 10 ml/Chromium/ Copper/Manganese/ Zinc 1 ml/Amino Acids/Dextrose 1,325.5 ml @ 55 mls/hr Q24H6M IV 02/07/24 22:00 02/08/24 21:59 02/07/24 23:05 55 MLS/HR Metoprolol Tartrate 25 mg DAILY PO 02/07/24 18:00 02/08/24 09:15 25 MG Lisinopril 10 mg DAILY PO 02/07/24 18:00 02/08/24 09:15 10 MG Fat Emulsion Intravenous 200 ml/Potassium Phosphate 44 meq/ Magnesium Sulfate 20 meq/ Multivitamins 10 ml/Chromium/ Copper/Manganese/ Zinc 1 ml/Amino Acids/Dextrose 1,326 ml @ 55 mls/hr Q24H7M IV 02/08/24 22:00 02/09/24 21:59 laboratory and microbiology Laboratory Tests 02/08/24 04:58 02/05/24 05:49 Test 02/08/24 04:58 Range/Units Serum Glucose 115 H 74-106 mg/dL Problem List/Assessment/Plan Problem List/Assessment/Plan 01/31/24 C/O PAIN, WOUND CLEAN AND WELL APPROXIMATED, DRAINAGE SEROUS, NO BM NO FLATUS, MUST AMBULATE 02/01/24 refusing to ambulate despite tyhorough explanation of significance, abdo,men non distended, appropriately tender, drainage sero sanguineous. 02/03/24 PASSING FLATUS, FEELS MUCH BETTERE, ABDOMEN SOFT, NON DISTENDED, MINIMALLY TENDER, WILL DC NGT AND START PO LIQUIDS 02/04/24 passing flatus, has not ambulated, will dc [place], must ambulate!! 02/06/24 AFEBRILE,NORMOTENSIVE,WBC NL, WOUND OK 02/08/24 FEELS BETTER, HAS AMBULATED, WOUND CLEAN AND WELL APPROXIMATED, DRAINAGE CLEAR, MAY BE DISCHARGED TOMORROW Plan discussed with: Patient, Spouse Dietary Evaluation Review Comments: 1) Increase TPN to meet at least 75% or estimated needs 2) Advance pt diet when medically feasible to a 2gm Sodium diet 3) Continue current plan of care Expected Outcomes/Goals: 1) Pt to receive adequate nutrition support 2) Pt diet to advance 3) F/U in 2-3 days REYNA SNOW MD Feb 08, 2024 12:07
--- NOTE | 2024-02-08 19:58 | DVHPN2 ---
Progress Note - Dictate Date Seen: Feb 08, 2024 Medical Necessity Reason Pt with a Central, PICC or Fol: No Subjective Patient was seen and evaluated in follow up. No acute events overnight. Patient feels better. Doing well with wound care. Ambulating. Labs are stable. vital signs Vital Sign Date Time Temp Pulse Resp B/P (MAP) Pulse Ox O2 Delivery O2 Flow Rate FiO2 02/08/24 17:00 97.4 88 19 138/67 (90) 96 97.4 02/08/24 08:00 Room Air* 0 21 Total Intake and Output 02/07/24 02/07/24 02/08/24 15:00 23:00 07:00 Intake Total 390 ml 2866 ml 685 ml Output Total 300 ml Balance 390 ml 2866 ml 385 ml medications Current Medications Medications Dose Ordered Sig/Sepideh Route Start Time Stop Time Status Last Admin Dose Admin Ceftriaxone Sodium 50 ml @ 100 mls/hr DAILY@09 IV 01/30/24 09:00 02/08/24 11:29 100 MLS/HR Metronidazole 100 ml @ 100 mls/hr Q8H IV 01/30/24 08:00 02/08/24 17:08 100 MLS/HR Pantoprazole Sodium 40 mg DAILY IV 01/30/24 10:00 02/08/24 09:05 40 MG Ondansetron HCl 4 mg Q4HP PRN IV 01/30/24 02:15 02/02/24 13:49 4 MG Acetaminophen 650 mg Q6HP PRN PO 01/30/24 02:15 02/08/24 13:37 650 MG Hydralazine HCl 10 mg Q6HP PRN IV 01/30/24 02:15 02/07/24 11:42 10 MG Nitroglycerin 0.4 mg Q5MINP PRN SL 01/30/24 03:45 Diagnostic Test (Pha) 1 strip Q6HR 01/30/24 12:00 02/08/24 18:02 1 STRIP Insulin Human Regular FOLLOW SLIDING SCALE Q6HR SC 01/30/24 12:00 02/07/24 00:30 2 UNITS Dextrose 50 ml UD IV 01/30/24 11:45 Amino Acids 0 ml @ 0 mls/hr PER PHARMACY IV 01/30/24 11:45 Fat Emulsion Intravenous 50 ml/ Sodium Acetate 20 meq/Sodium Phosphate 20 meq/ Potassium Acetate 20 meq/Potassium Phosphate 22 meq/ Magnesium Sulfate 8 meq/ Multivitamins 10 ml/Chromium/ Copper/Manganese/ Zinc 1 ml/Amino Acids/Dextrose 893 ml @ 37 mls/hr Q24H9M IV 01/30/24 22:00 01/31/24 21:59 Cancel Sodium Chloride 10 ml QSHIFT@10,22 IV 01/30/24 22:00 02/08/24 09:14 10 ML Docusate Sodium 100 mg BID PO 02/06/24 22:00 02/08/24 09:13 100 MG Fat Emulsion Intravenous 200 ml/Potassium Phosphate 44 meq/ Magnesium Sulfate 18 meq/ Multivitamins 10 ml/Chromium/ Copper/Manganese/ Zinc 1 ml/Amino Acids/Dextrose 1,325.5 ml @ 55 mls/hr Q24H6M IV 02/07/24 22:00 02/08/24 21:59 02/07/24 23:05 55 MLS/HR Metoprolol Tartrate 25 mg DAILY PO 02/07/24 18:00 02/08/24 09:15 25 MG Lisinopril 10 mg DAILY PO 02/07/24 18:00 02/08/24 09:15 10 MG Fat Emulsion Intravenous 200 ml/Potassium Phosphate 44 meq/ Magnesium Sulfate 20 meq/ Multivitamins 10 ml/Chromium/ Copper/Manganese/ Zinc 1 ml/Amino Acids/Dextrose 1,326 ml @ 55 mls/hr Q24H7M IV 02/08/24 22:00 02/09/24 21:59 objective Physical Exam General Appearance: Cooperative, No acute distress HEENT: Atraumatic, PERRLA, EOMI, Mucous membr. moist/pink Respiratory: Clear to auscultation, Normal air movement Cardiovascular: Regular rate, Normal S1, Normal S2, No murmurs Abdominal: Normal bowel sounds, Soft, No hepatospenomegaly, No masses Extremities: No clubbing, No cyanosis, No edema, Normal pulses, No tenderness/swelling Skin: No rashes, No breakdown, No significant lesion Neuro: Normal gait, Normal speech, Strength at 5/5 X4 ext, Normal tone, Sensation intact, Cranial nerves 3-12 NL, Reflexes 2+ Psych/Mental Status: Alert, Oriented X3, Mental status NL, Mood NL laboratory and microbiology Laboratory Tests 02/08/24 04:58 02/05/24 05:49 Test 02/08/24 04:58 Range/Units Serum Glucose 115 H 74-106 mg/dL Problem List 1) Hyponatremia (2) Diverticulitis of large intestine with perforation and abscess without bleeding (3) Abdominal pain Assessment/Plan Agree with current supportive medical care. DC planning. PT as recommended. IV or oral hydration. IV Ceftriaxone and Metronidazole. Pantoprazole 40 mg IV daily. Pain management prn. Diet as tolerated. Additional plan as per the hospital course. Dietary Evaluation Review Comments: 1) Increase TPN to meet at least 75% or estimated needs 2) Advance pt diet when medically feasible to a 2gm Sodium diet 3) Continue current plan of care Expected Outcomes/Goals: 1) Pt to receive adequate nutrition support 2) Pt diet to advance 3) F/U in 2-3 days Plan discussed with: Patient, Other (RN) JOHAN SANCHES DO Feb 08, 2024 19:58
[2024-02-08] MEDS: TPN PER PHARMACY IV NR (21:55)
[2024-02-09 01:00] VITALS: BP 140/69; PULSE 89; RESP 18; TEMP 98.1; O2SAT 96
[2024-02-09 05:00] VITALS: BP 140/68; PULSE 84; RESP 18; TEMP 97.5; O2SAT 98
[2024-02-09 07:25] LABS: Alanine Aminotransferase 30 U/L (7-40); Albumin 3.2 g/dL (3.2-4.8); Alkaline Phosphatase 74 U/L (46-116); Anion Gap 8 (5-15); Aspartate Aminotransferase 22 U/L (13-40); BUN/Creatinine Ratio 25.3 (10.0-20.0); Blood Urea Nitrogen 19 mg/dL (9-23); Calcium 8.8 mg/dL (8.7-10.4); Carbon Dioxide 26 mmol/L (20-31); Chloride 106 mmol/L (98-107); Glucose 119 mg/dL (74-106); Magnesium 2.3 mg/dL (1.6-2.6); Phosphorus 3.9 mg/dL (2.4-5.1); Potassium 4.5 mmol/L (3.5-5.1); Sodium 140 mmol/L (136-145)
[2024-02-09 07:26] LABS: Bilirubin, Total 0.3 mg/dL (0.2-1.0); Total Protein 5.7 g/dL (5.7-8.2)
[2024-02-09 08:28] VITALS: BP 132/73; PULSE 87; RESP 19; TEMP 97.6; O2SAT 96
--- NOTE | 2024-02-09 11:11 | DVHPN2 ---
Subjective The patient is seen and examined at bedside. The patient still have abdominal pain. Reviewed: Care Plan, H&P, Labs, Medications, Previous Orders, Radiology General: Per HPI Eyes: No Pain, No Vision change, No Conjunctivae inflammation, No Eyelid inflammation, No Other, No Redness ENT: No Ear pain, No Ear discharge, No Nose pain, No Nose discharge, No Nose congestion, No Mouth pain, No Mouth swelling, No Throat pain, No Throat swelling, No Other Cardiovascular: No Chest Pain, No Palpitations, No Orthopnea, No Paroxysmal Noc. Dyspnea, No Edema, No Lt Headedness, No Other Respiratory: No Cough, No Dry, No Shortness of breath, No SOB with excertion, No Wheezing, No Hemoptysis, No Pleuritic Pain, No Sputum, No Other Gastrointestinal: No Nausea, No Vomiting; Abdominal Pain; No Diarrhea, No Constipation, No Melena, No Hematochezia, No Other Genitourinary: No Dysuria, No Frequency, No Incontinence, No Hematuria, No Retention, No Other Musculoskeletal: No other, No neck pain, No shoulder pain, No arm pain, No back pain, No hand pain, No leg pain, No foot pain Skin: No Rash, No Lesions, No Jaundice, No Bruising, No Other Objective Vitals Vital Signs Date Time Temp Pulse Resp B/P (MAP) Pulse Ox O2 Delivery O2 Flow Rate FiO2 02/09/24 08:28 97.6 87 19 132/73 (92) 96 97.6 02/08/24 20:00 Room Air* 0 21 Intake/Output Intake and Output 02/09/24 07:00 Intake Total 2010 ml Output Total 45 ml Balance 1965 ml Intake Oral 1100 ml IV Total 910 ml Drainage Total 45 ml # Voids 5 # Bowel Movements 1 General Appearance: Alert, Oriented X3, Cooperative, mild distress HEENT: Atraumatic, PERRLA, EOMI Neck: Supple Cardiovascular: Regular rate, Normal S1, Normal S2, No murmurs, Gallops, Rubs Abdomen: Normal bowel sounds, Soft, No tenderness, No hepatospenomegaly Psych/Mental Status: Mental status NL Medications Current Medications Medications Dose Ordered Sig/Sepideh Route Start Time Stop Time Status Last Admin Dose Admin Ceftriaxone Sodium 50 ml @ 100 mls/hr DAILY@09 IV 01/30/24 09:00 02/08/24 11:29 100 MLS/HR Metronidazole 100 ml @ 100 mls/hr Q8H IV 01/30/24 08:00 02/08/24 23:59 100 MLS/HR Pantoprazole Sodium 40 mg DAILY IV 01/30/24 10:00 02/08/24 09:05 40 MG Ondansetron HCl 4 mg Q4HP PRN IV 01/30/24 02:15 02/02/24 13:49 4 MG Acetaminophen 650 mg Q6HP PRN PO 01/30/24 02:15 02/08/24 13:37 650 MG Hydralazine HCl 10 mg Q6HP PRN IV 01/30/24 02:15 02/07/24 11:42 10 MG Nitroglycerin 0.4 mg Q5MINP PRN SL 01/30/24 03:45 Diagnostic Test (Pha) 1 strip Q6HR 01/30/24 12:00 02/09/24 05:17 1 STRIP Insulin Human Regular FOLLOW SLIDING SCALE Q6HR SC 01/30/24 12:00 02/09/24 00:10 2 UNITS Dextrose 50 ml UD IV 01/30/24 11:45 Amino Acids 0 ml @ 0 mls/hr PER PHARMACY IV 01/30/24 11:45 Fat Emulsion Intravenous 50 ml/ Sodium Acetate 20 meq/Sodium Phosphate 20 meq/ Potassium Acetate 20 meq/Potassium Phosphate 22 meq/ Magnesium Sulfate 8 meq/ Multivitamins 10 ml/Chromium/ Copper/Manganese/ Zinc 1 ml/Amino Acids/Dextrose 893 ml @ 37 mls/hr Q24H9M IV 01/30/24 22:00 01/31/24 21:59 Cancel Sodium Chloride 10 ml QSHIFT@10,22 IV 01/30/24 22:00 02/08/24 21:55 10 ML Docusate Sodium 100 mg BID PO 02/06/24 22:00 02/08/24 21:43 100 MG Metoprolol Tartrate 25 mg DAILY PO 02/07/24 18:00 02/08/24 09:15 25 MG Lisinopril 10 mg DAILY PO 02/07/24 18:00 02/08/24 09:15 10 MG Fat Emulsion Intravenous 200 ml/Potassium Phosphate 44 meq/ Magnesium Sulfate 20 meq/ Multivitamins 10 ml/Chromium/ Copper/Manganese/ Zinc 1 ml/Amino Acids/Dextrose 1,326 ml @ 55 mls/hr Q24H7M IV 02/08/24 22:00 02/09/24 21:59 02/08/24 21:55 55 MLS/HR Laboratory Results Laboratory Tests 02/05/24 05:49 02/09/24 05:55 Chemistry Test 02/09/24 05:55 Albumin 3.2 g/dL (3.2-4.8) Calcium Level 8.8 mg/dL (8.7-10.4) Magnesium Level 2.3 mg/dL (1.6-2.6) Phosphorus Level 3.9 mg/dL (2.4-5.1) Total Protein 5.7 g/dL (5.7-8.2) LFT Test 02/09/24 05:55 Alanine Aminotransferase (ALT) 30 U/L (7-40) Alkaline Phosphatase 74 U/L (46-116) Aspartate Amino Transferase (AST) 22 U/L (13-40) Total Bilirubin 0.3 mg/dL (0.2-1.0) Urinalysis Test 01/29/24 23:10 Urine Color Straw (Yellow) Urine Clarity Clear (Clear) Urine pH 7.0 (5.0-9.0) Urine Specific [place] 1.012 (1.001-1.035) Urine Protein Negative (Negative) Urine Ketones Negative (Negative) Urine Blood Negative /uL (Negative) Urine Nitrite Negative (Negative) Urine Bilirubin Negative (Negative) Urine Urobilinogen Normal mg/dL (Negative) Urine Leukocyte Esterase Negative /uL (Negative) Urine RBC 2 /hpf (0 - 4) Urine WBC <1 /hpf (0 - 5) Urine Squamous Epithelial Cells None seen /hpf (<5) Urine Bacteria None seen /hpf (None Seen) Urine Glucose Normal mg/dL (Normal) Microbiology Microbiology Date/Time Source Procedure Growth Status 01/30/24 11:09 Peritoneal Fluid Gram Stain - Final Complete 01/30/24 11:09 Peritoneal Fluid Anaerobic Culture - Final Complete 01/30/24 11:09 Aerobic Culture - Final Escherichia coli Complete Assessment/Plan Assessment/Plan Pneumoperitoneum Leukocytosis, unspecified Acute abdominal pain Generalized abdominal pain Diverticulitis of intestine with perforation status post surgery Diverticulitis of large intestine with perforation and abscess without bleeding Plan: Continuing current management. Continuing with IV antibiotic ceftriaxone in Flagyl. Continuing with TPN. Advance diet per surgeon. DW daughter and patient regarding to plan of care. Continuing with IV morphine for pain control. Continue metoprolol and lisinopril. The patient start on soft diet today. Will see how she tolerate it. Discharge planning when clear by surgeon TED DEUTSCH MD Feb 09, 2024 11:11
--- NOTE | 2024-02-09 11:14 | DVHDS2 ---
Discharge Summary Date of Admission Jan 30, 2024 at 03:33 Date of Discharge: Feb 09, 2024 Admitting Diagnosis Pneumoperitoneum Leukocytosis, unspecified Acute abdominal pain Generalized abdominal pain Diverticulitis of large intestine with perforation and abscess without bleeding Labs/Diagnostic Data: Laboratory Results Test 02/09/24 05:55 02/09/24 00:04 02/06/24 05:18 02/05/24 05:49 Sodium Level 140 mmol/L (136-145) Potassium Level 4.5 mmol/L (3.5-5.1) Chloride Level 106 mmol/L (98-107) Carbon Dioxide Level 26 mmol/L (20-31) Anion Gap 8 (5-15) Blood Urea Nitrogen 19 mg/dL (9-23) Creatinine 0.75 mg/dL (0.550-1.02) Glomerular Filtration Rate Calc 87 mL/min (>90) BUN/Creatinine Ratio 25.3 (10.0-20.0) Serum Glucose 119 mg/dL (74-106) Calcium Level 8.8 mg/dL (8.7-10.4) Phosphorus Level 3.9 mg/dL (2.4-5.1) Magnesium Level 2.3 mg/dL (1.6-2.6) Total Bilirubin 0.3 mg/dL (0.2-1.0) Aspartate Amino Transferase (AST) 22 U/L (13-40) Alanine Aminotransferase (ALT) 30 U/L (7-40) Alkaline Phosphatase 74 U/L (46-116) Total Protein 5.7 g/dL (5.7-8.2) Albumin 3.2 g/dL (3.2-4.8) POC Glucose 135 mg/dl (70-106) Triglycerides Level 83 mg/dL (< 150) White Blood Count 7.7 10^3/uL (4.4-10.8) Red Blood Count 3.86 10^6/uL (4.0-5.20) Hemoglobin 11.7 g/dL (12.2-16.2) Hematocrit 34.0 % (36.0-46.0) Mean Corpuscular Volume 88.1 fL (80.0-100.0) Mean Corpuscular Hemoglobin 30.4 pg (28.0-32.0) Mean Corpuscular Hemoglobin Concent 34.6 g/dL (32.0-36.0) Red Cell Distribution Width 13.8 % (11.8-14.3) Platelet Count 254 10^3/uL (140-450) Mean Platelet Volume 8.2 fL (6.9-10.8) Neutrophils (%) (Auto) 73.2 % (37.0-80.0) Lymphocytes (%) (Auto) 13.2 % (10.0-50.0) Monocytes (%) (Auto) 8.1 % (0.0-12.0) Eosinophils (%) (Auto) 5.1 % (0.0-7.0) Basophils (%) (Auto) 0.4 % (0.0-2.0) Neutrophils # (Auto) 5.7 10 ^3/uL (1.6-8.6) Lymphocytes # (Auto) 1.0 10 ^3/uL (0.4-5.4) Monocytes # (Auto) 0.6 10 ^3/uL (0-1.3) Eosinophils # (Auto) 0.4 10 ^3/uL (0-0.8) Basophils # (Auto) 0 10 ^3/uL (0-0.2) Nucleated Red Blood Cells 0.0 % Test 01/30/24 01:45 01/29/24 23:10 Prothrombin Time 10.9 sec (9.3-11.8) Prothrombin Time INR 1.03 (0.9-1.15) Activated Partial Thromboplast Time 25.9 SEC (24.5-34.5) Urine Color Straw (Yellow) Urine Clarity Clear (Clear) Urine pH 7.0 (5.0-9.0) Urine Specific [place] 1.012 (1.001-1.035) Urine Protein Negative (Negative) Urine Ketones Negative (Negative) Urine Blood Negative /uL (Negative) Urine Nitrite Negative (Negative) Urine Bilirubin Negative (Negative) Urine Urobilinogen Normal mg/dL (Negative) Urine Leukocyte Esterase Negative /uL (Negative) Urine RBC 2 /hpf (0 - 4) Urine WBC <1 /hpf (0 - 5) Urine Squamous Epithelial Cells None seen /hpf (<5) Urine Bacteria None seen /hpf (None Seen) Urine Glucose Normal mg/dL (Normal) Other Laboratory Tests 02/09/24 05:55 02/05/24 05:49 Brief Hx & Hospital Course: This is a a 68 years old female with past medical history of breast cancer came to emergency department because of acute abdominal pain. Patient guarded progressive worse with the left lower quadrant pain, nonradiating, 9/10 scale. The patient also had nausea, vomiting. Abdomen pelvis CT scan in the emergency department review colonic diverticulosis with prominent inflammatory fat stranding at the sigmoid colon with prominent amount of pneumoperitoneum could be perforated diverticulitis. Mildly distended loops of small bowel with increased mucosal enhancement could be ileus and a developing partial bowel obstruction also possible. The patient was admitted. Surgery team was evaluated the patient. The patient was take to the OR for diverticulitis with perforation repair and evacuate abscess. After surgery the patient recovery well. The patient was on TPN and subsequently was switched to oral diet starting with clear liquid diet and advance to regular soft diet. The patient tolerated diet well. The patient was on IV antibiotic with ceftriaxone 1 g IV daily and Flagyl 500 mg IV Q 8 hours. The patient also received pain medication [place] and Toradol p.r.n.. Surgeon clear the patient to discharge home today. So I am going to discharge the patient home today. Advised the patient to follow up with Dr. Negrete, surgeon per schedule. Follow up with primary care physician 1-2 weeks. Do not lift any object more than 10 lb for two weeks. Activity as tolerated. Diet home diet. DME equipment for home have been order and delivery. Physical exam: HEENT: Normocephalic atraumatic pupils equal react to light and accommodation. Extraocular muscles intact, conjunctiva pink, oropharynx moist, no thrush, no exudate. Lymphatic: No lymphadenopathy Cardiovascular exam: S1, S2 was heard. No murmurs, rubs, gallops Lung: Clear on auscultation bilaterally, no wheeze, rale, rhonchi. GI: Abdominal soft, nondistended, nontenderness, positive bowel sounds. Extremity: No crepitus, cyanosis, edema. Pedal pulses present bilateral. Full range of motion. Skin: Normal turgor, no rash. Psych: Alert, oriented x3. Neurology: No focal deficits, cranial nerve II to XII grossly intact. Condition at Discharge: Stable Final Diagnosis/Problems List Diverticulitis of large intestine with perforation and abscess without bleeding, status post surgery Pneumoperitoneum Leukocytosis, unspecified Acute abdominal pain Generalized abdominal pain Discharge Disposition: Home Discharge Instruct/Medications Diet: Cardiac 2g Na,low cholest Activity: No Restrictions, As Tolerated Follow Up/Referral: pcp 1-2 weeks Medications: Resume home meds. See med list for new medication. Discharge Statement: "Patient was advised to return to the ER or call 911 if any headaches, dizziness, shortness of breath, chest pain, abdominal pain, bleeding, fevers, or worsening of medical condition. Patient was counseled about treatment plan, medications, possible side effects, patientverbalized understanding. All questions were answered to the best of my ability. This discharge took greater then 30 minutes in planning, reviewing documentation, counseling the patient, and discussing with other team members." ASSESSMENT ASSESSMENT Assessment Diverticulitis with perforation Date of Service: Feb 09, 2024 Billing Provider: TED DEUTSCH MD Common Visit Codes: 23012-QGM/OBS DISCH DAY >30min TED DEUTSCH MD Feb 09, 2024 11:14
[2024-02-09 13:00] VITALS: BP 153/86; PULSE 87; RESP 19; TEMP 97.3; O2SAT 100
[2024-02-09 14:40] VITALS: BP 132/73; PULSE 87; RESP 19; TEMP 97.6; O2SAT 96
[2024-02-09 16:49] VITALS: BP 150/88; PULSE 91; RESP 20; TEMP 97.4; O2SAT 96
--- NOTE | 2024-02-09 21:03 | DVHPN2 ---
Progress Note - Dictate Date Seen: Feb 09, 2024 Medical Necessity Reason Pt with a Central, PICC or Fol: No Subjective Patient was seen and evaluated in follow up. No acute events overnight. Patient feels better. Started on soft diet today and tolerating. Denies any new complaints. Labs are stable. vital signs Vital Sign Date Time Temp Pulse Resp B/P (MAP) Pulse Ox O2 Delivery O2 Flow Rate FiO2 02/09/24 16:49 97.4 91 20 150/88 (108) 96 97.4 02/09/24 08:20 Room Air* 0 21 Total Intake and Output 02/08/24 02/08/24 02/09/24 15:00 23:00 07:00 Intake Total 150 ml 1660 ml 200 ml Output Total 25 ml 20 ml Balance 125 ml 1660 ml 180 ml medications Current Medications Medications Dose Ordered Sig/Sepideh Route Start Time Stop Time Status Last Admin Dose Admin Fat Emulsion Intravenous 50 ml/ Sodium Acetate 20 meq/Sodium Phosphate 20 meq/ Potassium Acetate 20 meq/Potassium Phosphate 22 meq/ Magnesium Sulfate 8 meq/ Multivitamins 10 ml/Chromium/ Copper/Manganese/ Zinc 1 ml/Amino Acids/Dextrose 893 ml @ 37 mls/hr Q24H9M IV 01/30/24 22:00 01/31/24 21:59 Cancel objective Physical Exam General Appearance: Cooperative, No acute distress HEENT: Atraumatic, PERRLA, EOMI, Mucous membr. moist/pink Respiratory: Clear to auscultation, Normal air movement Cardiovascular: Regular rate, Normal S1, Normal S2, No murmurs Abdominal: Normal bowel sounds, Soft, No hepatospenomegaly, No masses Extremities: No clubbing, No cyanosis, No edema, Normal pulses, No tenderness/swelling Skin: No rashes, No breakdown, No significant lesion Neuro: Normal gait, Normal speech, Strength at 5/5 X4 ext, Normal tone, Sensation intact, Cranial nerves 3-12 NL, Reflexes 2+ Psych/Mental Status: Alert, Oriented X3, Mental status NL, Mood NL laboratory and microbiology Laboratory Tests 02/09/24 05:55 02/05/24 05:49 Test 02/09/24 05:55 Range/Units Serum Glucose 119 H 74-106 mg/dL Problem List 1) Hyponatremia (2) Diverticulitis of large intestine with perforation and abscess without bleeding (3) Abdominal pain Assessment/Plan DC planning in progress. Cleated for discharge from Nephrology standpoint. Dietary Evaluation Review Comments: 1) Increase TPN to meet at least 75% or estimated needs 2) Advance pt diet when medically feasible to a 2gm Sodium diet 3) Continue current plan of care Expected Outcomes/Goals: 1) Pt to receive adequate nutrition support 2) Pt diet to advance 3) F/U in 2-3 days Plan discussed with: Other (RN) JOHAN SANCHES DO Feb 09, 2024 21:03
== END 2024-02-09 17:54 | disposition home or self-care (01) | DRG 853 ==
LOC: EDBD 21:53 → ER 21:53 → EDSEX 21:53 → TELE 01-30 03:33 → TELE-CENTR 01-30 04:32 → CENTRAL 02-02 19:52
PROVIDERS: ADMIT Nurse Practitioner Family; ATTEND Internal Medicine
PROC: 0W9G00Z Drainage of Peritoneal Cavity with Drainage Device, Open Approach (ICD-10-PCS; principal; 2024-01-29)
PROC: 02HV33Z Insertion of Infusion Device into Superior Vena Cava, Percutaneous Approach (ICD-10-PCS; 2024-01-30)
PROC: B548ZZA Ultrasonography of Superior Vena Cava, Guidance (ICD-10-PCS; 2024-01-30)
DX: A41.9 Sepsis, unspecified organism (principal); K65.0 Generalized (acute) peritonitis; K57.20 Diverticulitis of large intestine with perforation and abscess without bleeding; E87.1 Hypo-osmolality and hyponatremia; Z85.3 Personal history of malignant neoplasm of breast; Z88.8 Allergy status to other drugs, medicaments and biological substances; Z79.82 Long term (current) use of aspirin; Z80.8 Family history of malignant neoplasm of other organs or systems; Z79.899 Other long term (current) drug therapy
CPT/HCPCS: 36415; 36569; 71045; 74177; 76937; 80048; 80053; 81001; 82962; 83735; 84100; 84478; 85025; 85610; 85730; 86850; 86900; 86901; 87070; 87075; 87077; 87186; 87205; 93005; 97110; 97116; 97163; 97530; 99291; G0378; J0330; J1100; J1815; J1885; J2250; J2405; J2470; J2704; J3480; J3490

== ENCOUNTER 2024-11-15 08:40 | Outpatient (CLI) | payer OTHER, MEDICAID ==
[~2024-11-15 08:40] MED LIST changes: +CEPH250C PO; +DOCU-265 PO; +NAPR-746 PO
[2024-11-15 09:46] LABS: Hematocrit 38.2 % (36.0-46.0); Hemoglobin 13.1 g/dL (12.2-16.2); Mean Corpuscular Hemoglobin 29.3 pg (28.0-32.0); Mean Corpuscular Volume 85.8 fL (80.0-100.0); Nucleated Red Blood Cells % 0.1 %
[2024-11-15 10:38] LABS: Alanine Aminotransferase 18 U/L (7-40); Alkaline Phosphatase 70 U/L (46-116); Calcium 9.4 mg/dL (8.7-10.4); Carbon Dioxide 29 mmol/L (20-31); Chloride 103 mmol/L (98-107); Glucose 85 mg/dL (74-106); Triglycerides 133 mg/dL (< 150)
[2024-11-15 10:39] LABS: Albumin 4.2 g/dL (3.2-4.8); Anion Gap 8 (5-15); BUN/Creatinine Ratio 14.6 (10.0-20.0); Bilirubin, Total 0.9 mg/dL (0.2-1.0); Blood Urea Nitrogen 15 mg/dL (9-23); Cholesterol 196 mg/dL (< 200); HDL Cholesterol 51 mg/dL (40-59); Potassium 4.3 mmol/L (3.5-5.1); Sodium 140 mmol/L (136-145); Total Protein 6.8 g/dL (5.7-8.2)
[2024-11-16 08:07] LABS: Free Thyroxine Index 1.9 (1.2-4.9)
== END 2024-11-15 17:00 | disposition home or self-care (01) ==
LOC: LAB 08:40
PROVIDERS: ATTEND Specialist
DX: I10 Essential (primary) hypertension (principal); E03.9 Hypothyroidism, unspecified; E78.5 Hyperlipidemia, unspecified; D64.9 Anemia, unspecified; R73.09 Other abnormal glucose; R68.89 Other general symptoms and signs
CPT/HCPCS: 36415; 80053; 80061; 83036; 84443; 85025

== ENCOUNTER 2024-12-12 07:35 | Outpatient (CLI) | payer MEDICAID ==
[2024-12-12 08:01] LABS: Urine Protein, UAD Negative (Negative)
[2024-12-12 08:16] LABS: Hematocrit 39.7 % (36.0-46.0); Hemoglobin 13.4 g/dL (12.2-16.2); Mean Corpuscular Hemoglobin 29.0 pg (28.0-32.0); Mean Corpuscular Volume 85.9 fL (80.0-100.0); Nucleated Red Blood Cells % 0.2 %
[2024-12-12 08:36] LABS: Chloride 105 mmol/L (98-107); Potassium 4.5 mmol/L (3.5-5.1); Sodium 142 mmol/L (136-145)
[2024-12-12 08:44] LABS: Anion Gap 8 (5-15); Calcium 9.2 mg/dL (8.7-10.4); Carbon Dioxide 29 mmol/L (20-31)
[2024-12-12 08:47] LABS: Alkaline Phosphatase 81 U/L (46-116)
[2024-12-12 08:48] LABS: Uric Acid 6.1 mg/dL (3.1-7.8)
[2024-12-12 08:49] LABS: Alanine Aminotransferase 13 U/L (7-40); BUN/Creatinine Ratio 12.1 (10.0-20.0); Blood Urea Nitrogen 13 mg/dL (9-23); Glucose 84 mg/dL (74-106); Magnesium 2.0 mg/dL (1.6-2.6)
[2024-12-12 08:50] LABS: Total Protein 7.3 g/dL (5.7-8.2)
[2024-12-12 08:51] LABS: Albumin 4.2 g/dL (3.2-4.8); Bilirubin, Total 0.8 mg/dL (0.2-1.0)
[2024-12-12 10:23] LABS: Triglycerides 115 mg/dL (< 150)
[2024-12-12 10:24] LABS: Cholesterol 198 mg/dL (< 200)
[2024-12-12 10:25] LABS: HDL Cholesterol 55 mg/dL (40-59)
== END 2024-12-12 17:00 | disposition home or self-care (01) ==
LOC: LAB 07:35
PROVIDERS: ATTEND Internal Medicine
DX: E11.9 Type 2 diabetes mellitus without complications (principal); E78.49 Other hyperlipidemia; E61.2 Magnesium deficiency; E79.0 Hyperuricemia without signs of inflammatory arthritis and tophaceous disease; E55.9 Vitamin D deficiency, unspecified; D51.9 Vitamin B12 deficiency anemia, unspecified; R82.79 Other abnormal findings on microbiological examination of urine; R82.90 Unspecified abnormal findings in urine; R82.998 Other abnormal findings in urine; R94.6 Abnormal results of thyroid function studies
CPT/HCPCS: 36415; 80053; 80061; 81001; 82306; 82607; 82746; 83036; 83735; 84443; 84480; 84550; 85025; 87086

== ENCOUNTER 2024-12-29 13:08 | Emergency (ER) | payer MEDICAID ==
[~2024-12-29] VITALS: Ht 154.9 cm; Wt 64.4 kg
--- NOTE | 2024-12-29 14:23 | ED.PDOC ---
GI ASSESSMENT HPI Comments 69 yeAR OLD f here with abdominal pain. Currently abdominal pain free. year- old female presents here from PCP's office for right upper quadrant pain that she has had off and on for last few days. The concern with the PCP was possible gallstones. She states currently she is fine. Denies any recent cough cold runny nose fever or chills. No nausea no vomiting currently. No abdominal pain currently. Chief Complaint: Abdominal Pain Time Seen by MD: 15:10 Reviewed Notes: Nurses Notes, Medications, Allergies Allergies: Coded Allergies: Hydrocortisone (Verified Allergy, Intermediate, rash , 01/30/24) Home Meds Active Scripts Docusate Sodium (Docusate Sodium) 100 Mg Cap, 100 MG PO BID PRN for 5 Days, #10 CAP Prov:THOMAS VILLALOBOS DO 02/06/24 Naproxen (Naproxen) 500 Mg Tab, 500 MG PO TID PRN for 10 Days, #30 TAB Prov:VILLALOBOSTHOMAS Becker DO 02/06/24 Cephalexin (KEFLEX CAPSULE) 250 Mg Cp, 2 CAP PO BID for 5 Days, #20 CAP Prov:THOMAS VILLALOBOS DO 02/06/24 Reported Medications Aspirin (Aspirin Low Dose) 81 Mg Chw, 1 TAB PO DAILY for 90 Days, #90 01/31/24 Lisinopril (Lisinopril) 10 Mg Tab, 1 TAB PO DAILY for 90 Days, #90 01/31/24 Atorvastatin Calcium (ATORVASTATIN CALCIUM) 40 Mg Tab, 1 TAB PO HS for 90 Days, #90 01/30/24 Alendronate Sodium (Alendronate Sodium) 70 Mg Tab, 1 TAB PO QWEEKLY for 84 Days, #12 01/30/24 Famotidine (Famotidine) 40 Mg Tab, 1 TAB PO DAILY for 90 Days, #90 01/30/24 Baclofen (Baclofen) 10 Mg Tab, 1 TAB PO HS for 30 Days, #30 01/30/24 Cholecalciferol (Vitamin D-3 Super Strengt) 2,000 Unit Tab, 1 TAB PO DAILY for 30 Days, #30 01/30/24 Amlodipine Besylate (Amlodipine Besylate) 5 Mg Tab, 1 TAB PO DAILY for 90 Days, #90 01/30/24 Ibuprofen Micronized (Ibuprofen) 800 Mg Tab, 1 TAB PO TID for 5 Days, #15 01/30/24 Triazolam (Triazolam) 0.25 Mg Tab, 1 TAB PO DAILY for 3 Days, #3 01/30/24 Amoxicillin Trihydrate (Amoxicillin) 500 Mg Cap, 1 CAP PO TID for DENTAL WORK for 7 Days, #21 01/30/24 Methylprednisolone (Methylprednisolone) 4 Mg Tab, TAB PO UD for DENTAL WORK for 6 Days, #21 01/30/24 Metoprolol Tartrate (Lopressor) 25 Mg Tb, 1 TAB PO DAILY for 90 Days, #90 01/30/24 Information Source: Patient Mode of Arrival: Ambulatory Timing: Days Duration: Since onset, Days Prehospital treatment: None Quality: Aching Vomitus: None Stool: Normal Severity: Moderate Recent: None Recent Hx of: None Pain Location: Diffuse Associated sign and symptoms: Nausea, Abdominal Pain Past Medical History PAST MEDICAL HISTORY: Cancer (breast) Surgical History: Denies all surgeries 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 Family History Family History: Reviewed,noncontributory to illness, Unknown Social History Smoker: Non-Smoker Alcohol: Denies ETOH Use Drugs: Denies Drug Use Lives In: Home Constitutional: denies: chills, diaphoresis, fatigue, fever, malaise, sweats, weakness, others EENTM: denies: blurred vision, double vision, ear bleeding, ear discharge, ear drainage, ear pain, ear ringing, eye pain, eye redness, hearing loss, mouth pain, mouth swelling, nasal discharge, nose bleeding, nose congestion, nose pain, photophobia, tearing, throat pain, throat swelling, voice changes, others Respiratory: denies: cough, hemoptysis, orthopnea, SOB at rest, shortness of breath, SOB with excertion, stridor, wheezing, others Cardiovascular: denies: chest pain, dizzy spells, diaphoresis, Dyspnea on exertion, edema, irregular heart beat, left arm pain, lightheadedness, pal pitations, PND, syncope, others Gastrointestinal: denies: abdomen distended, abdominal pain, blood streaked bowels, constipated, diarrhea, dysphagia, difficulty swallowing, hematemesis, melena, nausea, poor appetite, poor fluid intake, rectal bleeding, rectal pain, vomiting, others Genitourinary: denies: abnormal vagina bleeding, burning, dyspareunia, dysuria, flank pain, frequency, hematuria, incontinence, pain, , vagina discharge, urgency, others Neurological: denies: dizziness, fainting, headache, left sided numbness, left sided weakness, numbness, paresthesia, pre-existing deficit, right sided numbness, right sided weakness, seizure, speech problems, tingling, tremors, weakness, others Musculoskeletal: denies: back pain, gout, joint pain, joint swelling, muscle pain, muscle stiffness, neck pain, others Integumetry: denies: bruises, change in color, change in hair/nails, dryness, laceration, lesions, lumps, rash, wounds, others Allergic/Immunocompromised: denies: Difficulty Healing, Frequent Infections, Hives, Itching, others Hematologic/Lymphatic: denies: anemia, blood clots, easy bleeding, easy b ruising, swollen glands, others Endocrine: denies: excessive hunger, excessive sweating, excessive thirst, excessive urination, flushing, intolerance to cold, intolerance to heat, unexplained weight gain, unexplained weight loss, others Psychiatric: denies: anxiety, bipolar disorder, depression, hopeless, panic disorder, schizophrenia, sleepless, suicidal, others All Other Systems: Reviewed and Negative Physical Exam General Appearance: No Apparent Distress, Normal HEENT: Normal ENT Inspection, Pharynx Normal, TMs Normal Neck: Full Range of Motion, Non-Tender, Normal, Normal Inspection Respiratory: Chest Non-Tender, Lungs Clear, No Accessory Muscle Use, No Respiratory Distress, Normal Breath Sounds Cardiovascular: No Edema, No JVD, No Murmur, No Gallop, Normal Peripheral Pulses, Regular Rate/Rhythm Breast Exam: Deferred Gastrointestinal: No Organomegaly, Non Tender, No Pulsatile Mass, Normal Bowel Sounds, Soft Genitalia: Deferred Pelvic: Deferred Rectal: Deferred Extremities: No calf tenderness, Normal capillary refill, Normal inspection, Normal range of motion, Non-tender, No pedal edema Musculoskeletal : Apperance: Normal Neurologic: Alert, sr. pricing analyst II-XII nml as Tested, No Motor Deficits, Normal Affect, Normal Mood, No Sensory Deficits Cerebellar Function: Normal Reflexes: Normal Skin: Warm Lymphatic: No Adenopathy EKG EKG : Pulse Rate (adult): 59 [place]: Normal Cardiac Rhythm: NSR Block: None Hypertrophy: None ST: Normal Comments Rate of 59 sinus rhythm no significant ST changes Was a procedure done? Was a procedure done?: No GI differential Dx Differential Diagnosis: Cholecystitis Other Differential Diagnosis Pancreatitis, common bile duct stone biliary colic, gastritis acute myocardial infarction. X-Ray, Labs, Meds, VS Vital Signs Date Time Temp Pulse Resp B/P (MAP) Pulse Ox O2 Delivery O2 Flow Rate FiO2 12/29/24 15:16 59 12/29/24 13:27 59 12/29/24 13:15 97.7 70 18 140/69 97 97.7 Lab Test 12/29/24 17:29 12/29/24 15:30 12/29/24 14:36 Range/Units White Blood Count 4.4 4.4-10.8 10^3/uL Red Blood Count 4.42 4.0-5.20 10^6/uL Hemoglobin 13.0 12.2-16.2 g/dL Hematocrit 38.3 36.0-46.0 % Mean Corpuscular Volume 86.6 80.0-100.0 fL Mean Corpuscular Hemoglobin 29.5 28.0-32.0 pg Mean Corpuscular Hemoglobin Concent 34.0 32.0-36.0 g/dL Red Cell Distribution Width 14.2 11.8-14.3 % Platelet Count 252 140-450 10^3/uL Mean Platelet Volume 7.6 6.9-10.8 fL Neutrophils (%) (Auto) 59.3 37.0-80.0 % Lymphocytes (%) (Auto) 29.9 10.0-50.0 % Monocytes (%) (Auto) 8.7 0.0-12.0 % Eosinophils (%) (Auto) 1.4 0.0-7.0 % Basophils (%) (Auto) 0.7 0.0-2.0 % Neutrophils # (Auto) 2.6 1.6-8.6 10 ^3/uL Lymphocytes # (Auto) 1.3 0.4-5.4 10 ^3/uL Monocytes # (Auto) 0.4 0-1.3 10 ^3/uL Eosinophils # (Auto) 0.1 0-0.8 10 ^3/uL Basophils # (Auto) 0 0-0.2 10 ^3/uL Nucleated Red Blood Cells 0.1 % Sodium Level Pending Potassium Level Pending Chloride Level Pending Carbon Dioxide Level Pending Anion Gap Pending Blood Urea Nitrogen Pending Creatinine Pending Glomerular Filtration Rate Calc Pending BUN/Creatinine Ratio Pending Serum Glucose Pending Calcium Level Pending Total Bilirubin Pending Aspartate Amino Transferase (AST) Pending Alanine Aminotransferase (ALT) Pending Alkaline Phosphatase Pending Troponin I High Sensitivity 4 4 3 L </=34 ng/L Total Protein Pending Albumin Pending Lipase Pending [facility] [id number] [place] [id number] Ph: [phone] DIAGNOSTIC IMAGING Diagnostic Imaging Report : [id number] Signed PATIENT: FELICIA ASENCIO ACCT: [id number] UNIT: [id number] : 1955 LOC: ER ROOM / BED: / AGE / SEX: 69 / F ADM STATUS: REG ER SERVICE 23 ORDERING PHYSICIAN: ROQUE POPE MD PROCEDURE(s): GBUS - GALLBLADDER REASON: Rule out cholecystitis ORDER NUMBER(s): [id number], ACCESSION NUMBER(s): [id number] INDICATION: Abdominal pain; Rule out cholecystitis TECHNIQUE: Multiple real-time sonographic images were obtained of the right upper quadrant. COMPARISON: None FINDINGS: The liver demonstrates homogenous echotexture without focal mass lesions. Multiple hepatic cysts are visualized measuring up to 1.7 cm. The liver measures 15 cm. There is no intrahepatic or extrahepatic ductal dilatation. The common duct measures 6 mm. Gallstones. The gallbladder wall measures 5 mm and is thickened sonographic fitzgerald's sign is reportedly negative. The right kidney measures 9 cm. The right kidney is normal in contour, size, and shape. The echogenicity is normal. There is no hydronephrosis. The pancreas is not well visualized due to overlying bowel gas. IMPRESSION: Cholelithiasis with gallbladder wall thickening which can be seen in the setting of acute cholecystitis. If clinical concern, consider further evaluation with nuclear medicine HIDA scan. ATED BY: SHELTON DUEÑAS MD DICTATED DATE/TIME: 12/29/241512 SIGNED BY: SHELTON DUEÑAS MD SIGNED DATE/TIME: 12/29/241512 CC: 69-year-old female presents here with right upper quadrant pain. On my examination she is nontender. However given her course of pain, I have ordered an ultrasound of the gallbladder. CBC, CMP lipase and troponin of also been ordered. EKG unremarkable. CBC unremarkable with no leukocytosis. Troponin x2 negative. EKG unremarkable. At this time ultrasound demonstrates cholelithiasis with gallbladder wall thickening which can be seen in the setting of acute cholec ystitis. I offered patient admission I spoke to her for a long time regarding the course however she adamantly refused stating that she is currently not in pain and does not want to stay. I had a long conversation with her and I advised her if that if at any point she has fevers chills worsening abdominal pain she has been return back immediately. Patient agreeable. Time of 1ST Reevaluation: 15:40 Reevaluation 1ST: Unchanged Patient Education/Counseling: Diagnosis, Treatment, Prognosis Family Education/Counseling: No Family Present SEPSIS Sepsis Screen Date sepsis recognized/suspect: Dec 29, 2024 Time Sepsis recognized/suspect: 9 Recent Procedure: No On Antibiotic Therapy: No Respiratory Rate >20: No Heart Rate >90: No Temp<36 C (96.8 F) or >38.3 C: No SBP <90 or MAP <65 mmHG: No New Acute Mental Status Change: No Is the patient on CPAP, BIPAP,: No Physician Orders Electrocardigram (12/29/24 13:21) Gallbladder (12/29/24 14:24) Comprehensive Metabolic Panel (12/29/24 16:44) Lipase (12/29/24 16:44) Vital Signs Date Time Temp Pulse Resp B/P (MAP) Pulse Ox O2 Delivery O2 Flow Rate FiO2 12/29/24 15:16 59 12/29/24 13:27 59 12/29/24 13:15 97.7 70 18 140/69 97 97.7 Laboratory Tests Test 12/29/24 17:29 White Blood Count 4.4 10^3/uL (4.4-10.8) Departure 1 Departure Time of Disposition: 18:04 Impression: Primary Impression: Biliary colic Additional Impression: Thickening of wall of gallbladder Disposition: 01 HOME / SELF CARE / HOMELESS Condition: Fair Critical Care Note Critical Care Time?: No Stability Stability form required: No Heart Score Heart Score: Heart Score Response (Comments) Value History N/A 0 EKG N/A 0 Age >65 2 Risk Factors N/A 0 Troponin N/A 0 Total 2 I personally scribed for ROQUE POPE MD ([email or web address]) on 12/29/24 at 15:16. Electronically submitted by Zane Bravo ([employer]). I personally scribed for ROQUE POPE MD ([email or web address]) on 12/29/24 at 16:29. Electronically submitted by Zane Bravo ([employer]). ROQUE POPE MD Dec 29, 2024 14:23
--- NOTE | 2024-12-29 15:15 | DVH ---
INDICATION: Abdominal pain; Rule out cholecystitis TECHNIQUE: Multiple real-time sonographic images were obtained of the right upper quadrant. COMPARISON: None FINDINGS: The liver demonstrates homogenous echotexture without focal mass lesions. Multiple hepatic cysts are visualized measuring up to 1.7 cm. The liver measures 15 cm. There is no intrahepatic or e xtrahepatic ductal dilatation. The common duct measures 6 mm. Gallstones. The gallbladder wall measures 5 mm and is thickened sonographic fitzgerald's sign is reporte dly negative. The right kidney measures 9 cm. The right kidney is normal in contour, size, and shape. The echogeni city is normal. There is no hydronephrosis. The pancreas is not well visualized due to overlying bowel gas. IMPRESSION: Cholelithiasis with gallbladder wall thickening which can be seen in the setting of acute cholecystit is. If clinical concern, consider further evaluation with nuclear medicine HIDA scan.
[2024-12-29 17:37] LABS: Hematocrit 38.3 % (36.0-46.0); Hemoglobin 13.0 g/dL (12.2-16.2); Mean Corpuscular Hemoglobin 29.5 pg (28.0-32.0); Mean Corpuscular Volume 86.6 fL (80.0-100.0); Nucleated Red Blood Cells % 0.1 %
[2024-12-29 18:08] LABS: Albumin 4.3 g/dL (3.2-4.8); Anion Gap 9 (5-15); BUN/Creatinine Ratio 12.0 (10.0-20.0); Blood Urea Nitrogen 13 mg/dL (9-23); Calcium 9.1 mg/dL (8.7-10.4); Carbon Dioxide 30 mmol/L (20-31); Chloride 104 mmol/L (98-107); Glucose 94 mg/dL (74-106); Potassium 4.1 mmol/L (3.5-5.1); Sodium 143 mmol/L (136-145); Total Protein 7.3 g/dL (5.7-8.2)
[2024-12-29 18:23] LABS: Alanine Aminotransferase 1578 U/L (7-40); Alkaline Phosphatase 163 U/L (46-116); Bilirubin, Total 2.3 mg/dL (0.2-1.0); Lipase 1094 U/L (12-53)
--- NOTE | 2024-12-29 18:52 | ECG ---
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
--- NOTE | 2024-12-29 19:04 | ED.PDOC ---
Departure 1 Departure Time of Disposition: 05:22 (Patient presented with abdominal pain that was concerning for possible appendicits, gastritis, cholecystitis, colitis, gastroenteritis, sbo, or orther possible surgical emergency. Data: 1. I ordered and reviewed the result of at least 3 labs including a CBC, BMP, and Urinalysis. 2. I independently interpreted the following tests: Ultrasound is concerning for acute gallstone pancreatitisRisk:This patient has a high risk of morbidity due to further diagnostic testing or treatment and may suffer from an acute abdominal process disorder. Workup reveals acute gallstone pancreatitis and patient was transferred to [place] for ERCP) Impression: Primary Impression: Acute gallstone pancreatitis Additional Impressions: Thickening of wall of gallbladder Intractable abdominal pain Disposition: 02 SHORT TERM HOSPITAL Admit to: Med Surg Condition: Guarded Critical Care Note Critical Care Time?: Yes Critical care comment: Intractable abdominal pain Authorized and Performed by: Tri Hope MD Total critical care time: Approximately 36 minutes Due to a high probability of clinically significant, life threatening deterioration, the patient required my highest level of preparedness to intervene emergently and I personally spent this critical care time directly and personally managing the patient. This critical care time included obtaining a history; examining the patient; pulse oximetry; ordering and review of studies; arranging urgent treatment with development of a management plan; evaluation of patient's response to treatment; frequent reassessment; and, discussions with other providers. This critical care time was performed to assess and manage the high probability of imminent, life-threatening deterioration that could result in multi-organ failure. It was exclusive of separately billable procedures and treating other patients and teaching time. Please see my other sections and the rest of the note for further information on patient assessment and treatment. TRI HOPE MD Dec 29, 2024 19:04
[2024-12-29] MEDS: ceFAZolin 2 GM/D5W50ml 50 ML IV ONE (21:03)
[2024-12-29] MEDS: HYDROmorphone HCL 2 MG/ML VL/or syr IV ONE (21:03)
[2024-12-29 21:17] VITALS: BP 177/94; PULSE 73; RESP 14; TEMP 98.1; O2SAT 98
== END 2024-12-29 21:49 | disposition short-term general hospital (02) ==
LOC: ER 13:08
DX: K85.10 Biliary acute pancreatitis without necrosis or infection (principal); K82.8 Other specified diseases of gallbladder; R10.84 Generalized abdominal pain; Z79.899 Other long term (current) drug therapy
CPT/HCPCS: 36415; 76705; 80053; 83690; 84484; 85025; 93005; 96374; 99291; J1171; J3490

== ENCOUNTER 2025-01-29 09:07 | Outpatient (CLI) | payer MEDICAID ==
[2025-01-29 09:47] LABS: Hematocrit 39.7 % (36.0-46.0); Hemoglobin 13.5 g/dL (12.2-16.2); Mean Corpuscular Hemoglobin 29.3 pg (28.0-32.0); Mean Corpuscular Volume 86.1 fL (80.0-100.0); Nucleated Red Blood Cells % 0.1 %
[2025-01-29 10:36] LABS: Alanine Aminotransferase 24 U/L (7-40); Albumin 4.2 g/dL (3.2-4.8); Alkaline Phosphatase 102 U/L (46-116); BUN/Creatinine Ratio 10.3 (10.0-20.0); Blood Urea Nitrogen 12 mg/dL (9-23); Calcium 9.2 mg/dL (8.7-10.4); Carbon Dioxide 29 mmol/L (20-31); Cholesterol 199 mg/dL (< 200); Glucose 84 mg/dL (74-106); HDL Cholesterol 50 mg/dL (40-59); Potassium 4.4 mmol/L (3.5-5.1); Sodium 141 mmol/L (136-145); Total Protein 7.5 g/dL (5.7-8.2); Triglycerides 134 mg/dL (< 150)
[2025-01-29 10:37] LABS: Bilirubin, Total 0.9 mg/dL (0.2-1.0); Urine Protein, UAD Negative (Negative)
[2025-01-29 10:57] LABS: Anion Gap 9 (5-15); Chloride 103 mmol/L (98-107)
[2025-01-29 11:02] LABS: Uric Acid 5.7 mg/dL (3.1-7.8)
== END 2025-01-29 17:00 | disposition home or self-care (01) ==
LOC: LAB 09:07
PROVIDERS: ATTEND Internal Medicine
DX: E78.49 Other hyperlipidemia (principal); E61.2 Magnesium deficiency; E79.0 Hyperuricemia without signs of inflammatory arthritis and tophaceous disease; E55.9 Vitamin D deficiency, unspecified; D51.9 Vitamin B12 deficiency anemia, unspecified; R82.79 Other abnormal findings on microbiological examination of urine; R82.90 Unspecified abnormal findings in urine; R82.998 Other abnormal findings in urine; R94.6 Abnormal results of thyroid function studies; R68.89 Other general symptoms and signs; R73.09 Other abnormal glucose
CPT/HCPCS: 36415; 80053; 80061; 81001; 82306; 82607; 82746; 83036; 84443; 84550; 85025; 87086

== ENCOUNTER 2025-02-20 09:21 | Outpatient (CLI) | payer MEDICAID ==
[2025-02-20 10:17] LABS: Hematocrit 40.6 % (36.0-46.0); Hemoglobin 13.3 g/dL (12.2-16.2); Mean Corpuscular Hemoglobin 28.7 pg (28.0-32.0); Mean Corpuscular Volume 87.3 fL (80.0-100.0); Nucleated Red Blood Cells % 0.1 %
[2025-02-20 10:49] LABS: Alanine Aminotransferase 18 U/L (7-40); Albumin 4.2 g/dL (3.2-4.8); Alkaline Phosphatase 81 U/L (46-116); Anion Gap 8 (5-15); BUN/Creatinine Ratio 14.6 (10.0-20.0); Bilirubin, Direct 0.3 mg/dL (<0.3); Bilirubin, Total 1.2 mg/dL (0.2-1.0); Blood Urea Nitrogen 15 mg/dL (9-23); Calcium 9.6 mg/dL (8.7-10.4); Carbon Dioxide 30 mmol/L (20-31); Chloride 104 mmol/L (98-107); Cholesterol 197 mg/dL (< 200); Glucose 89 mg/dL (74-106); HDL Cholesterol 57 mg/dL (40-59); Potassium 4.7 mmol/L (3.5-5.1); Sodium 142 mmol/L (136-145); Total Protein 7.3 g/dL (5.7-8.2); Triglycerides 98 mg/dL (< 150)
[2025-02-21 11:20] LABS: Hepatitis A Total Antibody Positive (Negative)
== END 2025-02-20 17:00 | disposition home or self-care (01) ==
LOC: LAB 09:21
PROVIDERS: ATTEND Specialist
DX: I11.0 Hypertensive heart disease with heart failure (principal); E11.9 Type 2 diabetes mellitus without complications; E78.5 Hyperlipidemia, unspecified; E03.9 Hypothyroidism, unspecified; D64.9 Anemia, unspecified; R68.89 Other general symptoms and signs
CPT/HCPCS: 36415; 80053; 80061; 80076; 84443; 85025; 86708; 86709